=== PATIENT | female | born 1955 | race Caucasian/White ===

== ENCOUNTER 2023-12-11 08:28 | Emergency (ER) | payer MEDICARE, OTHER, SELFPAY ==
[2023-12-11 08:33] VITALS: BP 137/77
--- NOTE | 2023-12-11 09:29 | ED.GENMED ---
History of Present Illness
General
Chief Complaint: Chest Problem
Source: patient
Exam Limitations: none
Time Seen by Provider: 12/11/23 09:20
Nursing documentation reviewed up to this point in time: agreed with
Travel History
Have you had any contact with someone who has COVID-19?: No
Do you have any symptoms of coronavirus? Fever > 100 degrees, chills, cough, shortness of breath, sore throat, loss of taste or smell, muscle aches, or headache?: Yes
Symptoms:: cough
History of Present Illness
History of Present Illness:
68 yr old female presents to the ER for evaluation. Patient reports for the past several days she has had cold symptoms, nasal congestion. She reports only mild cough. She denies any fevers.
She also complains of Midsternal chest pain that started yesterday. She reports she notices a walking to the mailbox and reports it has been off and on since. She denies any radiation to neck back or arm. Denies any associated shortness of
breath. She has no cardiac history.
She reports chest feels sore now.
No prior history of DVT PE. She has no clotting disorder , denies any lower extremity swelling.
Past History
Past History
ED Past Medical History: HTN, Hypercholesterolemia and Other (COVID in January 2021; chronic insomnia, osteoarthritis, anemia)
ED Past Surgical History: Orthopedic (Chronic problems with her feet.)
Social History
Tobacco: Non-smoker
Alcohol: None
Drug: None
Personal:
Living: with family
Employment: Disabled
Family History
Family History: Other (Noncontributory)
Review of Systems
Review of Systems
Allergies reviewed?: Yes
All Other Systems: ROS reviewed and negative except as documented in HPI and ROS
Constitutional: Reports no symptoms; Denies fever, fatigue or chills
Respiratory: Denies trouble breathing
Cardiac: Reports chest pain; Denies diaphoresis, palpitations or syncope
ABD/GI: Reports no symptoms
: Reports no symptoms
Musculoskeletal: Reports no symptoms
Skin: Reports no symptoms
Neurological: Reports no symptoms
Hematologic/Lymphatic: Reports no symptoms
Psychiatric: Reports no symptoms
Phy Exam
General Physical Exam
General Presentation: no apparent distress
General age: appears stated age
General Skin: warm and dry
General Habitus: normal
General Mental: alert
General Hydration: appears well hydrated
Cardiovascular Exam
Cardiovascular Exam: regular rate/rhythm, no murmur and normal peripheral pulses
Pulmonary Exam
Pulmonary Exam: lungs clear and no respiratory distress
Course
Orders/Labs/Results
Orders:
Orders
12/11/23 08:36
EKG [Electrocardiogram (*1)] Urgent
Reason for Study: Chest Pain
12/11/23 08:37
EKG- Treatment ONCE
12/11/23 09:49
Chest [CR Chest - 2 Views ] Urgent
Comment:
Reason For Exam: cp
12/11/23 10:01
COVID-19 Antigen Urgent
Source: Nasal Swab
Complete Blood Count/With Diff Urgent
Comprehensive Metabolic Panel Urgent
Troponin I Urgent
Influenza A+B Rapid Molecular Urgent
KAMILLA Source: Nasal Swab
Specimen Description:
12/11/23 10:57
Vital Signs- Treatment ONCE
Frequency: Once
Abnormal Lab Results
12/11/23
10:01
RBC 6.41 H 10^6/uL
(4.20-5.40)
MCV 64.7 L fL
(81.0-99.0)
MCH 20.3 L pg
(27.0-31.0)
MCHC 31.3 L g/dL
(33.0-37.0)
RDW 17.6 H %
(11.5-14.5)
MPV 10.8 H fL
(7.4-10.4)
Absolute Neuts (auto) 6.7 H 10^3/uL
(1.4-6.5)
Chloride 110 H mmol/L
(98-107)
BUN 19 H mg/dl
(7-17)
Alkaline Phosphatase 135 H U/L
(38-126)
12/11/23 10:01
12/11/23 10:01
Vital Signs
Initial and Last Documented VS:
Initial Vital Signs
Temp Pulse Resp BP Pulse Ox
98.2 F 101 16 137/77 96
12/11/23 08:33 12/11/23 08:33 12/11/23 08:33 12/11/23 08:33 12/11/23 08:33
Last Documented Vital Signs
Temp Pulse Resp BP Pulse Ox
98.2 F 76 16 122/82 97
12/11/23 08:33 12/11/23 11:11 12/11/23 11:11 12/11/23 11:11 12/11/23 11:11
MDM/Problems Addressed
Differential Diagnosis Includes:
Not limited to viral syndrome, COVID, flu, musculoskeletal chest pain, less likely CAD, less likely PE
MDM/Problems Addressed:
Patient is a 68 old female who presents to the ER with viral symptoms, nasal congestion/cough. In addition she does have mild anterior chest discomfort. Discomfort started yesterday. She is no cardiac history. She is not toxic. Chest is sore on
exam. She has no acute findings on EKG. Cardiac troponin negative. No acute findings on chest x-ray. Symptoms are likely muscular patient has no complaints of shortness of breath lungs are clear she has nontachypneic nonhypoxic in no acute
distress. Likely viral syndrome with muscular skeletal chest pain
*Radiology
Radiology exam reviewed: radiology read reviewed
*Pulse Oximetry
Patient hypoxic: no
*EKG
Interpreted by ED Provider?: Yes
Heart Rate: 91
Rate: normal
Rhythm: sinus
Ischemia: non-specific ST changes
*Critical Care Note
Total Time (30-74mins, 75-104mins- exclusive of procedures): Not Applicable
ED Attending Note
-
Portions of this chart may have been created with voice recognition software.� Occasional wrong word or��sound alike� substitutions may have occurred due to the inherent limitations of voice recognition software.
Discharge Plan
Departure
Patient Disposition: Home (Routine Discharge)
Date of Disposition: 12/11/23
Time of Disposition: 10:58
Patient with high blood pressure during this ER visit?: Yes
Condition: Fair
Covid-19: Negative COVID-19
Discharge Problem:
Acute viral syndrome, Chest pain
Instructions: Viral Syndrome (DC), Chest Pain PCP Follow Up, BLOOD PRESSURE
Prescriptions:
No Action
clonazepam 1 mg Tablet
1.5 mg PO HS
Patient Comments:
09/08/2023: last filled 09/07/23, 60 tabs for 30 days from [place]
atorvastatin 10 mg tablet
10 mg PO DAILY@1930
clonazepam 1 mg tablet
0.5 mg PO DAILY@0100 PRN (Reason: sleep)
Patient Comments:
09/08/2023: last filled 09/07/23, 60 tabs for 30 days from [place]
prednisolone acetate 1 % drops,suspension
1 drp LEFT EYE QID
hydrochlorothiazide 25 mg tablet
25 mg PO DAILY
carbidopa-levodopa 25-100 mg tablet
2 tab PO DAILY@2000
carbidopa-levodopa 25-100 mg tablet
1 tab PO DAILY@0400
pregabalin 75 mg capsule
75 mg PO HS
Patient Comments:
09/08/2023: last filled 08/13/23, 90 tabs for 90 days from [facility]
Referrals:
Nakia Rodriguez CRNP [Family Provider] -
Activity Restrictions/Additional Instructions:
As discussed you are negative for COVID and flu and likely have a virus based on your symptoms. It is important to stay well-hydrated.
Follow-up with your family doctor the next several days for reevaluation of your symptoms.
Your cardiac blood work was normal and there are no acute changes on your EKG. this chest pain may be related to cough.
Return if any worsening of symptoms if worsening fevers difficulty breathing worsening chest pain or any further concerns.
Interventions
Interventions:
*Risk Screen - Suicide Last Done: 12/11/23 08:33
*General Assessment Last Done: 12/11/23 08:33
*Neglect/Abuse Screening Last Done: 12/11/23 08:33
*Nursing Disposition Last Done: 12/11/23 11:40
ED- Cardiac Assessment Last Done: 12/11/23 11:30
ED- Pulmonary Assessment Last Done: 12/11/23 11:30
Discharge Date and Time
Discharge Date/Time: 12/11/23 11:48
[2023-12-11 10:18] LABS: % Basophils 0.6 % (0-2); % Eosinophils 2.9 % (0-6); % Immature Granulocytes 0.2 % (0-0.5); % Lymphocytes 29.5 % (20.5-51.1); % Monocytes 5.2 % (1.7-9.3); % Neutrophils 61.6 % (42.2-75.2); Absolute Basophils 0.1 10^3/uL (0-0.2); Absolute Eosinophils 0.3 10^3/uL (0-0.7); Absolute Lymphocytes 3.2 10^3/uL (1.2-3.4); Absolute Monocytes 0.6 10^3/uL (0.1-0.6); Absolute Neutrophils 6.7 10^3/uL (1.4-6.5); Hematocrit 41.5 % (37.0-47.0); Mean Corp Hgb Conc. 31.3 g/dL (33.0-37.0); Mean Corpuscular Hgb 20.3 pg (27.0-31.0); Mean Corpuscular Volume 64.7 fL (81.0-99.0); Mean Platelet Volume 10.8 fL (7.4-10.4); Nucleated Red Blood Cells % 0 %; Platelet Count 236 10^3/uL (130-400); Red Blood Cell Count 6.41 10^6/uL (4.20-5.40); Red Cell Dist. Width 17.6 % (11.5-14.5); White Blood Cell Count 10.8 10^3/uL (4.8-10.8)
[2023-12-11 10:25] LABS: ALT (SGPT) < 10 U/L (0-35); AST (SGOT) 23 U/L (14-36); Albumin 3.8 g/dl (3.5-5.0); Alkaline Phosphatase 135 U/L (38-126); Blood Urea Nitrogen 19 mg/dl (7-17); Calcium 8.7 mg/dl (8.4-10.2); Carbon Dioxide 26 mmol/L (22-30); Chloride 110 mmol/L (98-107); Glucose 89 mg/dl (70-99); Sodium 142 mmol/L (135-145); Total Bilirubin 0.5 mg/dl (0.2-1.3); Total Protein 6.9 g/dl (6.3-8.2); eGFR > 60.00
[2023-12-11 10:27] LABS: COVID-19 Antigen Negative (Negative)
[2023-12-11 10:36] LABS: Troponin I < 0.012 ng/ml
[2023-12-11 11:11] VITALS: BP 122/82
== END 2023-12-11 11:48 | disposition home or self-care (01) ==
LOC: EMR 08:28
PROVIDERS: EMERGENCY PHYSICIAN Emergency Medicine; FAMILY PHYSICIAN Family Medicine Adult Medicine
DX: B34.9 Viral infection, unspecified (principal); R07.89 Other chest pain; Z11.52 Encounter for screening for COVID-19; I10 Essential (primary) hypertension; E78.00 Pure hypercholesterolemia, unspecified; Z86.16 Personal history of COVID-19; M19.90 Unspecified osteoarthritis, unspecified site; Z88.6 Allergy status to analgesic agent; Z88.1 Allergy status to other antibiotic agents; Z88.8 Allergy status to other drugs, medicaments and biological substances
CPT/HCPCS: 99283; 71046; 80053; 84484; 85025; 87502; 87811; 93005

== ENCOUNTER 2024-05-28 08:31 | Emergency (ER) | payer MEDICARE, SELFPAY ==
[2024-05-28 08:44] VITALS: BP 112/78
[2024-05-28 09:00] VITALS: BP 127/91
--- NOTE | 2024-05-28 09:20 | ED.GENMED ---
History of Present Illness
<Nahum Green PA-C - Last Filed: 05/28/24 13:40>
General
Chief Complaint: Dizziness
Source: patient
Time Seen by Provider: 05/28/24 09:07
History of Present Illness
History of Present Illness:
68-year-old female with past medical history of hypertension and hyperlipidemia presenting to the emergency department for evaluation after she awoke this morning and when getting out of bed got lightheaded and felt as if she could not walk
straight. This caused her to feel nauseated as well as developed a slight headache and have chills. Patient went and sat on her couch. Her for COVID and gave her some eyedrops but symptoms persisted so they contacted EMS. Patient states that
since EMS brought her to the ER her symptoms are now fully resolved. Patient denies any fevers or infectious symptoms, vomiting, bowel changes or urinary symptoms. She did not take anything for her symptoms prior to arrival. Social history and
family history are noncontributory.
Past History
<Nahum Green PA-C - Last Filed: 05/28/24 13:40>
Past History
ED Past Medical History: HTN, Hypercholesterolemia and Other (COVID in January 2021; chronic insomnia, osteoarthritis, anemia)
ED Past Surgical History: Gynecological and Orthopedic (Chronic problems with her feet.)
Social History
Tobacco: Non-smoker
Alcohol: None
Drug: None
Personal:
Living: with family
Employment: Disabled
Family History
Family History: Other (Noncontributory)
Review of Systems
<Nahum Green PA-C - Last Filed: 05/28/24 13:40>
Review of Systems
All Other Systems: ROS reviewed and negative except as documented in HPI and ROS
Phy Exam
<Nahum Green PA-C - Last Filed: 05/28/24 13:40>
Physical Exam
Physical Exam:
GENERAL: Alert , in no apparent distress, smiling and pleasant, drinking water
EYE: clear conjunctiva b/l
HEAD: NCAT
ENT: o/p clr, mmm.
CARDIAC: Regular rate and rhythm .
LUNGS: Clear breath sounds bilaterally, no acute respiratory distress, no wheezes/rales/rhonchi
ABDOMEN: Soft, without focal tenderness, no r/g, no cvat
NEUROLOGICAL: Alert and oriented
SKIN: Warm and dry, skin intact.
MUSCULOSKELETAL: No edema, well perfused.
PSYCH: Normal and appropriate interaction.
Scores
<Nahum Green PA-C - Last Filed: 05/28/24 13:40>
Heart Failure Risk
Heart Failure Risk Score: Not Applicable
Heart Score for Chest Pain Patients
STEMI patient?: Not applicable
Withdrawal Assessment of Alcohol
Withdrawal Assessment Completed?: Not applicable
Course
<Nahum Green PA-C - Last Filed: 05/28/24 13:40>
Orders/Labs/Results
Orders:
Orders
05/28/24 09:19
Orthostatic VS- Treatment ONCE
05/28/24 09:35
Electrocardiogram (*1) Urgent
Reason for Study: Syncope
EKG- Treatment ONCE
05/28/24 09:43
Basic Metabolic Panel Urgent
Complete Blood Count/With Diff Urgent
05/28/24 10:03
Meclizine [Antivert] 25 mg PO NOW STA
Abnormal Lab Results
05/28/24
09:43
WBC 11.0 H 10^3/uL
(4.8-10.8)
RBC 6.05 H 10^6/uL
(4.20-5.40)
MCV 64.1 L fL
(81.0-99.0)
MCH 20.3 L pg
(27.0-31.0)
MCHC 31.7 L g/dL
(33.0-37.0)
RDW 17.9 H %
(11.5-14.5)
MPV 10.8 H fL
(7.4-10.4)
Abs Immat Gran (auto) 0.1 H 10^3/uL
(0-0.05)
Absolute Neuts (auto) 7.9 H 10^3/uL
(1.4-6.5)
Chloride 108 H mmol/L
(98-107)
BUN 20 H mg/dl
(7-17)
05/28/24 09:43
05/28/24 09:43
Vital Signs
Initial and Last Documented VS:
Initial Vital Signs
Temp Pulse Resp BP Pulse Ox
97.6 F 83 16 112/78 97
05/28/24 08:44 05/28/24 08:44 05/28/24 08:44 05/28/24 08:44 05/28/24 08:44
Last Documented Vital Signs
Temp Pulse Resp BP Pulse Ox
98.4 F 80 18 127/91 99
05/28/24 11:43 05/28/24 11:43 05/28/24 11:43 05/28/24 09:00 05/28/24 11:43
<Eb Crisostomo, DO - Last Filed: 05/28/24 10:04>
Orders/Labs/Results
Orders:
Orders
05/28/24 09:19
Orthostatic VS- Treatment ONCE
05/28/24 09:35
Electrocardiogram (*1) Urgent
Reason for Study: Syncope
EKG- Treatment ONCE
05/28/24 09:43
Basic Metabolic Panel Urgent
Complete Blood Count/With Diff Urgent
05/28/24 10:03
Meclizine [Antivert] 25 mg PO NOW STA
Abnormal Lab Results
05/28/24
09:43
WBC 11.0 H 10^3/uL
(4.8-10.8)
RBC 6.05 H 10^6/uL
(4.20-5.40)
MCV 64.1 L fL
(81.0-99.0)
MCH 20.3 L pg
(27.0-31.0)
MCHC 31.7 L g/dL
(33.0-37.0)
RDW 17.9 H %
(11.5-14.5)
MPV 10.8 H fL
(7.4-10.4)
Abs Immat Gran (auto) 0.1 H 10^3/uL
(0-0.05)
Absolute Neuts (auto) 7.9 H 10^3/uL
(1.4-6.5)
Chloride 108 H mmol/L
(98-107)
BUN 20 H mg/dl
(7-17)
05/28/24 09:43
05/28/24 09:43
Vital Signs
Initial and Last Documented VS:
Initial Vital Signs
Temp Pulse Resp BP Pulse Ox
97.6 F 83 16 112/78 97
05/28/24 08:44 05/28/24 08:44 05/28/24 08:44 05/28/24 08:44 05/28/24 08:44
Last Documented Vital Signs
Temp Pulse Resp BP Pulse Ox
98.4 F 80 18 127/91 99
05/28/24 11:43 05/28/24 11:43 05/28/24 11:43 05/28/24 09:00 05/28/24 11:43
<Nahum Green PA-C - Last Filed: 05/28/24 13:40>
MDM/Problems Addressed
Differential Diagnosis Includes:
orthostasis, near syncope, anemia, electrolyte disturbance
MDM/Problems Addressed:
68-year-old female presenting to the emergency department for evaluation after she started to feel lightheaded/dizzy earlier today. Symptoms started just after she had stood up from bed. Symptoms seem to be most with orthostasis. She is otherwise
very well-appearing and hemodynamically stable. Overall I do not have any suspicion for any emergent pathologies but given her age and presenting symptoms will check labs, orthostatic vital signs and EKG. Anticipate discharge home.
<Nahum Green PA-C - Last Filed: 05/28/24 13:40>
*Pulse Oximetry
Patient hypoxic: no
*EKG
Interpreted by ED Provider?: Yes
Comparison EKG: no changes
Heart Rate: 76
Rate: normal
Rhythm: sinus
[place]: normal axis
Ischemia: no ischemia
*Critical Care Note
Total Time (30-74mins, 75-104mins- exclusive of procedures): Not Applicable
Data Reviewed
Review of Other/Old Records Reveals: Labs and Records
Source: patient
<Nahum Green PA-C - Last Filed: 05/28/24 13:40>
Comment
Comment:
Patients labs unremarkable. Appears to have a chronic leukocytosis based off chart/lab review
Patient Management
Escalation/DeEscalation of care consider admission/obs:
Patient feeling better after meclizine and IVF. Stable for discharge home. Aware of return precautions to the ED.
ED Attending Note
<Nahum Green PA-C - Last Filed: 05/28/24 13:40>
-
Portions of this chart may have been created with voice recognition software.� Occasional wrong word or��sound alike� substitutions may have occurred due to the inherent limitations of voice recognition software.
<Eb Crisostomo DO - Last Filed: 05/28/24 10:04>
ED Attending Note
Patient seen and examined by attending physician: Yes
I performed the substantive portion of visit, reviewed & personally made and approve the management plan that is documented in note by myself or EVERARDO.: Yes
ED Attending Note:
I have seen and evaluated the patient with a [id number] encounter. I have spoken to the advance practicer provider and involved in the medical history, the physical exam, medical decision making.
Evaluation and management service: agree unless noted differently below.
Results interpretation: agree unless noted differently below.
Focused HPI: 68-year-old female presenting with dizziness. This occurred when she stood up quickly. She felt lightheaded. This was associated with a headache. All symptoms appear to be resolving on arrival to the emergency
Physical exam: Sitting bed comfortably. Well-hydrated. Normal finger-nose. Heart regular rate and rhythm. Mild dizziness worsened with Santana-Hallpike to the left.
Medical Decision Making: Will give fluids and meclizine and continue to reassess. Given no focal neurodeficits, doubt intracranial hemorrhage, stroke or mass.
Discharge Plan
Departure
Patient Disposition: Home (Routine Discharge)
Date of Disposition: 05/28/24
Time of Disposition: 11:32
Patient with high blood pressure during this ER visit?: No
Discharge Problem:
Light-headedness
Instructions: Dizziness, Nonvertigo, (DC)
Prescriptions:
New
meclizine 25 mg tablet
25 mg PO BID PRN (Reason: dizziness) Qty: 5 0RF
No Action
clonazepam 1 mg Tablet
1.5 mg PO HS
Patient Comments:
09/08/2023: last filled 09/07/23, 60 tabs for 30 days from [facility]
atorvastatin 10 mg tablet
10 mg PO DAILY@1930
clonazepam 1 mg tablet
0.5 mg PO DAILY@0100 PRN (Reason: sleep)
Patient Comments:
09/08/2023: last filled 09/07/23, 60 tabs for 30 days from [place]
prednisolone acetate 1 % drops,suspension
1 drp LEFT EYE QID
hydrochlorothiazide 25 mg tablet
25 mg PO DAILY
carbidopa-levodopa 25-100 mg tablet
2 tab PO DAILY@2000
carbidopa-levodopa 25-100 mg tablet
1 tab PO DAILY@0400
pregabalin 75 mg capsule
75 mg PO HS
Patient Comments:
09/08/2023: last filled 08/13/23, 90 tabs for 90 days from [facility]
Referrals:
Attila Cardoso MD [Family Provider] -
Interventions
Interventions:
*Risk Screen - Suicide Last Done: 05/28/24 11:43
*General Assessment Last Done: 05/28/24 08:47
*Neglect/Abuse Screening Last Done: 05/28/24 11:43
ED- Fall Risk Assessment Last Done: 05/28/24 11:43
*ED COVID-19 Vaccine History Last Done: 05/28/24 08:47
*Nursing Disposition Last Done: 05/28/24 11:43
ED- Neurological Assessment Last Done: 05/28/24 09:40
ED- Cardiac Assessment Last Done: 05/28/24 11:43
ED Swallowing Screen Last Done: 05/28/24 09:40
Discharge Date and Time
Discharge Date/Time: 05/28/24 11:45
Print Language: CYMRAES
[2024-05-28 09:36] VITALS: BMI 34.0
[2024-05-28 10:00] LABS: % Basophils 0.6 % (0-2); % Eosinophils 1.3 % (0-6); % Immature Granulocytes 0.5 % (0-0.5); % Lymphocytes 20.5 % (20.5-51.1); % Monocytes 5.5 % (1.7-9.3); % Neutrophils 71.6 % (42.2-75.2); Absolute Basophils 0.1 10^3/uL (0-0.2); Absolute Eosinophils 0.1 10^3/uL (0-0.7); Absolute Immature Granulocytes 0.1 10^3/uL (0-0.05); Absolute Lymphocytes 2.3 10^3/uL (1.2-3.4); Absolute Monocytes 0.6 10^3/uL (0.1-0.6); Absolute Neutrophils 7.9 10^3/uL (1.4-6.5); Hematocrit 38.8 % (37.0-47.0); Hemoglobin 12.3 g/dL (12.0-16.0); Mean Corp Hgb Conc. 31.7 g/dL (33.0-37.0); Mean Corpuscular Hgb 20.3 pg (27.0-31.0); Mean Corpuscular Volume 64.1 fL (81.0-99.0); Mean Platelet Volume 10.8 fL (7.4-10.4); Nucleated Red Blood Cells % 0 %; Platelet Count 242 10^3/uL (130-400); Red Blood Cell Count 6.05 10^6/uL (4.20-5.40); Red Cell Dist. Width 17.9 % (11.5-14.5)
[2024-05-28 10:11] LABS: Blood Urea Nitrogen 20 mg/dl (7-17); Calcium 9.1 mg/dl (8.4-10.2); Carbon Dioxide 28 mmol/L (22-30); Chloride 108 mmol/L (98-107); Estimated Creatinine Clearance 51 ml/min; Glucose 94 mg/dl (70-99); Potassium 4.5 mmol/L (3.5-5.1); Sodium 142 mmol/L (135-145); eGFR > 60.00
[2024-05-28] MEDS: ANTIVERT 25 MG PO (10:30)
[2024-05-28 11:14] VITALS: BP 141/128; BP 142/90; BP 147/81; PULSE 78; PULSE 84; PULSE 86
== END 2024-05-28 11:45 | disposition home or self-care (01) ==
LOC: EMR 08:31
PROVIDERS: Physician Assistant Medical; EMERGENCY PHYSICIAN Student in an Organized Health Care Education/Training Program; FAMILY PHYSICIAN Internal Medicine
DX: R42 Dizziness and giddiness (principal); I10 Essential (primary) hypertension; E78.00 Pure hypercholesterolemia, unspecified
CPT/HCPCS: 99284; 80048; 85025; 93005

== ENCOUNTER 2024-05-30 11:15 | Emergency (ER) | payer MEDICARE, SELFPAY ==
[2024-05-30 11:16] VITALS: BP 124/78
--- NOTE | 2024-05-30 11:36 | ED.GENMED ---
History of Present Illness
General
Chief Complaint: Dizziness
Source: patient
Exam Limitations: none
Time Seen by Provider: 05/30/24 11:27
History of Present Illness
History of Present Illness:
See MDM
Past History
Past History
ED Past Medical History: HTN, Hypercholesterolemia and Other (COVID in January 2021; chronic insomnia, osteoarthritis, anemia)
ED Past Surgical History: Gynecological and Orthopedic (Chronic problems with her feet.)
Social History
Tobacco: Non-smoker
Alcohol: None
Drug: None
Personal:
Living: with family
Employment: Disabled
Family History
Family History: Other (Noncontributory)
Phy Exam
Physical Exam
Physical Exam:
See MDM
Course
Orders/Labs/Results
Orders:
Orders
05/30/24 11:36
Dexamethasone Pf [Decadron] 10 mg PO NOW STA
Vital Signs
Initial and Last Documented VS:
Initial Vital Signs
Temp Pulse Resp BP Pulse Ox
98.0 F 82 16 124/78 98
05/30/24 11:16 05/30/24 11:16 05/30/24 11:16 05/30/24 11:16 05/30/24 11:16
Last Documented Vital Signs
Temp Pulse Resp BP Pulse Ox
98.0 F 82 16 124/78 98
05/30/24 11:16 05/30/24 11:16 05/30/24 11:16 05/30/24 11:16 05/30/24 11:16
MDM/Problems Addressed
Differential Diagnosis Includes:
HPI and MDM Narrative:
68-year-old female presenting with right ear pain. This occurred yesterday. She was recently evaluated in the emergency department for dizziness which was believed to be related to BPPV. Patient states her dizziness has improved drastically about
she is now developing ear pain.
On exam, patient is extremely well-appearing nontoxic. Patient is requesting me to evaluate her ears. Both TMs are bulging but pale. Right TM with concern for very mild otitis externa.
Will give dose of Decadron to help with bulging TMs. Will start on Ciprodex as well.
Physical exam
General: Well appearing and non-toxic
HEENT: protecting airway. Bilateral TMs pale but bulging. Right mild otitis externa
Neck: appears supple
CV: No evidence of cyanosis
Resp: No accessory muscle use
Abd: Non-distended
Extremities: No deformities
Neuro: alert
Psych: Normal affect
Skin: Intact
Problems Addressed including Acute and Chronic Conditions affecting care:
1. Otitis externa
Acuity: acute
Prognosis: stable
Details: Will start Ciprodex. Will give dose of Decadron to help with TM bulging
Differential Diagnosis (but not limited to): Vertigo, otitis externa, congestion
Drug therapy (if applicable): OTC meds, please see d/c instruction regarding Rx drugs
Amount and/or Complexity of Data Reviewed
Clinical info obtained from: Patient
External data reviewed: N/A
Labs I independently reviewed (but not limited to): N/A
Radiology: N/A
Pulse Ox: not hypoxic
EKG independently reviewed: N/A
Rope Rider: N/A
Critical Care: N/A
Risk of Complication:
Social Determinants of health: Good social support
Discussed with other providers: N/A
Escalation of Care includes Admit/Obs: After being observed in the Emergency Department, pt stable for discharge.
Occasional wrong word or 'sound a like' substitutions may have occurred due to the inherent limitations of voice recognition software. Read the chart carefully and recognize, using context, where substitutions have occurred.
*Critical Care Note
Total Time (30-74mins, 75-104mins- exclusive of procedures): Not Applicable
ED Attending Note
-
Portions of this chart may have been created with voice recognition software.� Occasional wrong word or��sound alike� substitutions may have occurred due to the inherent limitations of voice recognition software.
Discharge Plan
Departure
Patient Disposition: Home (Routine Discharge)
Date of Disposition: 05/30/24
Time of Disposition: 11:39
Patient with high blood pressure during this ER visit?: No
Discharge Problem:
Otitis externa
Instructions: Outer Ear Infection ED
Prescriptions:
New
ciprofloxacin-dexamethasone 0.3-0.1 % drops,suspension
4 drp otic (ear) BID 7 Days Qty: 7.5 0RF
No Action
clonazepam 1 mg Tablet
1.5 mg PO HS
Patient Comments:
09/08/2023: last filled 09/07/23, 60 tabs for 30 days from [place]
atorvastatin 10 mg tablet
10 mg PO DAILY@1930
clonazepam 1 mg tablet
0.5 mg PO DAILY@0100 PRN (Reason: sleep)
Patient Comments:
09/08/2023: last filled 09/07/23, 60 tabs for 30 days from [place]
prednisolone acetate 1 % drops,suspension
1 drp LEFT EYE QID
hydrochlorothiazide 25 mg tablet
25 mg PO DAILY
carbidopa-levodopa 25-100 mg tablet
2 tab PO DAILY@2000
carbidopa-levodopa 25-100 mg tablet
1 tab PO DAILY@0400
pregabalin 75 mg capsule
75 mg PO HS
Patient Comments:
09/08/2023: last filled 08/13/23, 90 tabs for 90 days from [place]
meclizine 25 mg tablet
25 mg PO BID PRN (Reason: dizziness) Qty: 5 0RF
Activity Restrictions/Additional Instructions:
Please return for any worsening symptoms.
You may return at any time if you have further concerns.
Please follow up with your doctor at the first available appointment, preferably this week.
Please take the eardrops as prescribed.
Thank you for choosing [facility].
Discharge Date and Time
Print Language: ROMANIAN
[2024-05-30] MEDS: DECADRON 10 MG PO (11:44)
== END 2024-05-30 11:52 | disposition home or self-care (01) ==
LOC: EMR 11:15
PROVIDERS: EMERGENCY PHYSICIAN Student in an Organized Health Care Education/Training Program
DX: H60.91 Unspecified otitis externa, right ear (principal); I10 Essential (primary) hypertension; E78.00 Pure hypercholesterolemia, unspecified; F51.04 Psychophysiologic insomnia; M19.90 Unspecified osteoarthritis, unspecified site; D64.9 Anemia, unspecified
CPT/HCPCS: 99282

== ENCOUNTER → 2024-09-14 08:42 | Outpatient (REF) | payer MEDICARE, SELFPAY ==
[2024-09-14 10:23] LABS: % Basophils 0.6 % (0-2); % Eosinophils 0.8 % (0-6); % Immature Granulocytes 0.4 % (0-0.5); % Lymphocytes 20.7 % (20.5-51.1); % Monocytes 4.7 % (1.7-9.3); % Neutrophils 72.8 % (42.2-75.2); Absolute Basophils 0.1 10^3/uL (0-0.2); Absolute Eosinophils 0.1 10^3/uL (0-0.7); Absolute Immature Granulocytes 0.1 10^3/uL (0-0.05); Absolute Lymphocytes 2.7 10^3/uL (1.2-3.4); Absolute Monocytes 0.6 10^3/uL (0.1-0.6); Absolute Neutrophils 9.4 10^3/uL (1.4-6.5); Hematocrit 42.1 % (37.0-47.0); Mean Corp Hgb Conc. 30.9 g/dL (33.0-37.0); Mean Corpuscular Hgb 20.7 pg (27.0-31.0); Mean Platelet Volume 11.7 fL (7.4-10.4); Nucleated Red Blood Cells % 0 %; Platelet Count 244 10^3/uL (130-400); Red Blood Cell Count 6.28 10^6/uL (4.20-5.40); Red Cell Dist. Width 17.7 % (11.5-14.5); White Blood Cell Count 12.9 10^3/uL (4.8-10.8)
[2024-09-14 10:49] LABS: ALT (SGPT) < 10 U/L (0-35); AST (SGOT) 20 U/L (14-36); Albumin 4.1 g/dl (3.5-5.0); Alkaline Phosphatase 123 U/L (38-126); Blood Urea Nitrogen 24 mg/dl (7-17); Carbon Dioxide 30 mmol/L (22-30); Chloride 104 mmol/L (98-107); Glucose 87 mg/dl (70-99); HDL Cholesterol 37 mg/dl; LDL Cholesterol, Calculated 86 mg/dl; Sodium 145 mmol/L (135-145); Total Bilirubin 0.6 mg/dl (0.2-1.3); Total Cholesterol 168 mg/dl (50-199); Total Protein 7.1 g/dl (6.3-8.2); Triglyceride 227 mg/dl (10-149); Very Low Density Lipoprotein 45 mg/dl (0-30); eGFR > 60.00
[2024-09-14 11:19] LABS: TSH Reflex To Free T4 1.35 uIU/ml (0.47-4.68)
[2024-09-15 18:57] LABS: Hepatitis C Antibody Negative (Negative)
== END ==
LOC: WDC 08:42
PROVIDERS: ATTENDING PHYSICIAN Internal Medicine
DX: Z12.31 Encounter for screening mammogram for malignant neoplasm of breast (principal); Z00.00 Encounter for general adult medical examination without abnormal findings
CPT/HCPCS: 36415; 77063; 77067; 80053; 80061; 84443; 85025; 86803

== ENCOUNTER 2024-12-17 14:16 | Emergency (ER) | payer MEDICARE, SELFPAY ==
[2024-12-17 14:35] VITALS: BP 160/95
[2024-12-17 15:15] LABS: COVID-19 Antigen Negative (Negative)
--- NOTE | 2024-12-17 16:23 | ED.GENMED ---
History of Present Illness
General
Chief Complaint: Cold/Flu/URI Symptoms
Source: patient
Exam Limitations: none
Time Seen by Provider: 12/17/24 16:22
Nursing documentation reviewed up to this point in time: agreed with
History of Present Illness
History of Present Illness:
69 y/o F h/o HTN, HLD, essential tremor
yesterday started feeling congested, then today slight cough, diarrhea x 1
daughter has same thing
pt wanted flu and covid tests
she took some mucinex and feels much better and wants to go home
no cp, sob, headche, vomiting, fatigue, cp, sob, confusion, weakness.
Past History
Past History
ED Past Medical History: HTN, Hypercholesterolemia and Other (COVID in January 2021; chronic insomnia, osteoarthritis, anemia)
ED Past Surgical History: Gynecological and Orthopedic (Chronic problems with her feet.)
Social History
Tobacco: Non-smoker
Alcohol: None
Drug: None
Personal:
Living: with family
Employment: Disabled
Family History
Family History: Other (Noncontributory)
Review of Systems
Review of Systems
Allergies reviewed?: Yes
All Other Systems: Not applicable
Phy Exam
Physical Exam
Physical Exam:
GENERAL: Alert , in no apparent distress
EYE: pupils equal and reactive
NECK: Supple
ENT: b/l TM s clear, pharynx erythematous but no tonsillar hypertrophy or exudates
CARDIAC: Regular rate and rhythm, no edema
LUNGS: Clear breath sounds bilaterally, no acute respiratory distress, no wheezes/rales/rhonchi, occ cough
ABDOMEN: Soft, without focal tenderness, no r/g, no cvat, normal bowel sounds
NEUROLOGICAL: Alert and oriented, no focal neuro deficits
SKIN: Warm and dry, skin intact.
MUSCULOSKELETAL: No edema, well perfused.
PSYCH: Normal and appropriate interaction.
Course
Orders/Labs/Results
Orders:
Orders
12/17/24 14:48
COVID-19 Antigen Urgent
Source: Nasal Swab
Influenza A+B Rapid Molecular Urgent
[facility] Source: Nasal Swab
Specimen Description:
Vital Signs
Pulse: 99
Blood pressure: 161/93
Initial and Last Documented VS:
Initial Vital Signs
Temp Pulse Resp BP Pulse Ox
36.8 C 100 16 160/95 98
12/17/24 14:35 12/17/24 14:35 12/17/24 14:35 12/17/24 14:35 12/17/24 14:35
Last Documented Vital Signs
Temp Pulse Resp BP Pulse Ox
36.8 C 99 16 161/93 98
12/17/24 14:35 12/17/24 16:29 12/17/24 14:35 12/17/24 16:29 12/17/24 14:35
MDM/Problems Addressed
Differential Diagnosis Includes:
URI, viral syndrome
MDM/Problems Addressed:
69 y/o F
here with 1 day of URI sxs, nasal congestion, slight cough, no fever, mild diarrhea
well appearing
wanted flu and covid tests
daughter had same symptoms and she also tested neg for flu and covid
pt feels well now
exam benign, mild nasal turbinate injection
otherwise unremarkable
mild bp leevation, pt waiting a long time and was frustrated
likely siutational
d/c home
*Critical Care Note
Total Time (30-74mins, 75-104mins- exclusive of procedures): Not Applicable
ED Attending Note
-
Portions of this chart may have been created with voice recognition software.� Occasional wrong word or��sound alike� substitutions may have occurred due to the inherent limitations of voice recognition software.
Discharge Plan
Departure
Patient Disposition: Home (Routine Discharge)
Date of Disposition: 12/17/24
Time of Disposition: 16:32
Patient with high blood pressure during this ER visit?: Yes
Condition: Fair
Discharge Problem:
Upper respiratory infection, Acute viral syndrome
Instructions: Viral Upper Respiratory Infection, Adult (DC), BLOOD PRESSURE
Prescriptions:
No Action
clonazepam 1 mg Tablet
1.5 mg PO HS
Patient Comments:
09/08/2023: last filled 09/07/23, 60 tabs for 30 days from [place]
atorvastatin 10 mg tablet
10 mg PO DAILY@1930
clonazepam 1 mg tablet
0.5 mg PO DAILY@0100 PRN (Reason: sleep)
Patient Comments:
09/08/2023: last filled 09/07/23, 60 tabs for 30 days from [place]
prednisolone acetate 1 % drops,suspension
1 drp LEFT EYE QID
hydrochlorothiazide 25 mg tablet
25 mg PO DAILY
carbidopa-levodopa 25-100 mg tablet
2 tab PO DAILY@2000
carbidopa-levodopa 25-100 mg tablet
1 tab PO DAILY@0400
pregabalin 75 mg capsule
75 mg PO HS
Patient Comments:
09/08/2023: last filled 08/13/23, 90 tabs for 90 days from [place]
meclizine 25 mg tablet
25 mg PO BID PRN (Reason: dizziness) Qty: 5 0RF
ciprofloxacin-dexamethasone 0.3-0.1 % drops,suspension
4 drp otic (ear) BID 7 Days Qty: 7.5 0RF
Referrals:
UNKNOWN - PT DOES,NOT KNOW [Family Provider] -
Activity Restrictions/Additional Instructions:
Your flu and COVID test were negative. You probably have a viral infection. Take Tylenol or other ybqe-qaf-vaypbhg medications like Coricidin HBP etc. as needed for your cold symptoms. You should avoid decongestants as these can raise your blood
pressure. Your blood pressure was mildly elevated today. Have this rechecked next week. Rest, drink fluids, apply a small layer of Vicks underneath your nostril to help you breathe. Return for any severe symptoms like severe diarrhea,
dehydration, high fever, chest pain or shortness of breath or any concerns
Interventions
Interventions:
*Risk Screen - Suicide Last Done: 12/17/24 14:35
*General Assessment Last Done: 12/17/24 14:35
*Neglect/Abuse Screening Last Done: 12/17/24 14:35
*ED COVID-19 Vaccine History Last Done: 12/17/24 14:35
*Nursing Disposition Last Done: 12/17/24 16:40
Discharge Date and Time
Discharge Date/Time: 12/17/24 16:53
Print Language: SAMI
== END 2024-12-17 16:53 | disposition home or self-care (01) ==
LOC: EMR 14:16
PROVIDERS: Emergency Medicine; EMERGENCY PHYSICIAN Emergency Medicine
DX: J06.9 Acute upper respiratory infection, unspecified (principal); I10 Essential (primary) hypertension; E78.00 Pure hypercholesterolemia, unspecified; Z86.16 Personal history of COVID-19
CPT/HCPCS: 99283; 87502; 87811

== ENCOUNTER → 2025-03-01 08:40 | Outpatient (REF) | payer MEDICARE, SELFPAY ==
[2025-03-01 10:32] LABS: % Basophils 0.6 % (0-2); % Eosinophils 1.7 % (0-6); % Immature Granulocytes 0.3 % (0-0.5); % Monocytes 7.3 % (1.7-9.3); % Neutrophils 56.1 % (42.2-75.2); Absolute Basophils 0.1 10^3/uL (0-0.2); Absolute Eosinophils 0.2 10^3/uL (0-0.7); Absolute Lymphocytes 3.4 10^3/uL (1.2-3.4); Absolute Monocytes 0.7 10^3/uL (0.1-0.6); Absolute Neutrophils 5.6 10^3/uL (1.4-6.5); Hematocrit 39.9 % (37.0-47.0); Hemoglobin 12.4 g/dL (12.0-16.0); Mean Corp Hgb Conc. 31.1 g/dL (33.0-37.0); Mean Corpuscular Hgb 20.5 pg (27.0-31.0); Mean Corpuscular Volume 65.8 fL (81.0-99.0); Nucleated Red Blood Cells % 0 %; Platelet Count 255 10^3/uL (130-400); Red Blood Cell Count 6.06 10^6/uL (4.20-5.40); Red Cell Dist. Width 17.5 % (11.5-14.5)
[2025-03-01 11:01] LABS: ALT (SGPT) < 10 U/L (0-35); AST (SGOT) 23 U/L (14-36); Albumin 3.7 g/dl (3.5-5.0); Alkaline Phosphatase 145 U/L (38-126); Blood Urea Nitrogen 19 mg/dl (7-17); Calcium 9.5 mg/dl (8.4-10.2); Carbon Dioxide 27 mmol/L (22-30); Chloride 109 mmol/L (98-107); Glucose 84 mg/dl (70-99); Potassium 4.5 mmol/L (3.5-5.1); Sodium 144 mmol/L (135-145); Total Bilirubin 0.5 mg/dl (0.2-1.3); Total Protein 6.6 g/dl (6.3-8.2); eGFR > 60.00
[2025-03-01 13:45] LABS: TSH Reflex To Free T4 1.93 uIU/ml (0.47-4.68)
== END ==
LOC: RAD 08:40
PROVIDERS: ATTENDING PHYSICIAN Nurse Practitioner Primary Care; FAMILY PHYSICIAN Internal Medicine
DX: Z78.0 Asymptomatic menopausal state (principal); R42 Dizziness and giddiness
CPT/HCPCS: 36415; 77080; 80053; 84443; 85025

== ENCOUNTER 2025-04-23 08:53 | Emergency (ER) | payer MEDICARE, SELFPAY ==
[2025-04-23 08:58] VITALS: BP 139/78
--- NOTE | 2025-04-23 09:37 | ED.GENMED ---
History of Present Illness
General
Chief Complaint: Musculo-Skeletal Complaint
Source: patient
Exam Limitations: none
Time Seen by Provider: 04/23/25 09:16
Nursing documentation reviewed up to this point in time: agreed with
History of Present Illness
History of Present Illness:
69-year-old female history of plantar fasciitis years ago treated with surgery out of boot presents with right bottom foot pain for less than a day reminiscent of her plantar fasciitis did not take any meds but tried to stretch it with no relief no
fever denies stepping on any glass, not known to be diabetic, no calf pain
Past History
Past History
ED Past Medical History: HTN, Hypercholesterolemia and Other (COVID in January 2021; chronic insomnia, osteoarthritis, anemia)
ED Past Surgical History: Gynecological and Orthopedic (Chronic problems with her feet.)
Social History
Tobacco: Non-smoker
Alcohol: None
Drug: None
Personal:
Living: with family
Employment: Disabled
Family History
Family History: Other (Noncontributory)
Review of Systems
Review of Systems
All Other Systems: Not applicable
Constitutional: Denies fever or chills
EENT: Reports no symptoms
Respiratory: Reports no symptoms
Musculoskeletal: Reports joint pain and muscle pain
Phy Exam
Physical Exam
Physical Exam:
Physical Exam
General: no apparent distress, not acutely ill
Neck: No jaundice
Heart: Regular
Lungs: no acute respiratory distress.
Neuro: alert and oriented. no focal neurological deficits
Skin: no rash
Psychiatric: well kept. interactive and cooperative
Extremities: Minimal tenderness plantar surface of the right foot no cellulitis no breaks in the skin no warm
Course
Orders/Labs/Results
Orders:
Orders
04/23/25 09:32
Acetaminophen [Tylenol] 650 mg PO NOW STA
04/23/25 09:36
Cast Shoe Right-Treatment ONCE
Ibuprofen [Motrin] 400 mg PO NOW STA
Vital Signs
Initial and Last Documented VS:
Initial Vital Signs
Temp Pulse Resp BP Pulse Ox
98 F 92 16 139/78 98
04/23/25 08:58 04/23/25 08:58 04/23/25 08:58 04/23/25 08:58 04/23/25 08:58
Last Documented Vital Signs
Temp Pulse Resp BP Pulse Ox
98 F 92 16 139/78 98
04/23/25 08:58 04/23/25 08:58 04/23/25 08:58 04/23/25 08:58 04/23/25 08:58
MDM/Problems Addressed
Differential Diagnosis Includes:
Plantar fasciitis, cellulitis osteoarthritis neuropathy
MDM/Problems Addressed:
Right bottom of the foot pain
Chronic conditions affecting care:
Plantar fascia
Acute Exacerbation and/or Progression of Chronic Illness:
Plantar fascia
*Pulse Oximetry
Patient hypoxic: no
*Critical Care Note
Total Time (30-74mins, 75-104mins- exclusive of procedures): Not Applicable
Update Note
Update Note:
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
ED Attending Note
-
Portions of this chart may have been created with voice recognition software.� Occasional wrong word or��sound alike� substitutions may have occurred due to the inherent limitations of voice recognition software.
Discharge Plan
Departure
Patient Disposition: Home (Routine Discharge)
Date of Disposition: 04/23/25
Time of Disposition: 09:34
Patient with high blood pressure during this ER visit?: No
Condition: Good
Discharge Problem:
Plantar fasciitis of right foot
Instructions: Plantar fasciitis, Cast Care, Exercises for plantar fasciitis
Prescriptions:
New
ibuprofen 400 mg tablet
400 mg PO Q6H PRN (Reason: Pain) Qty: 30 0RF
No Action
clonazepam 1 mg Tablet
1.5 mg PO HS
Patient Comments:
09/08/2023: last filled 09/07/23, 60 tabs for 30 days from [place]
atorvastatin 10 mg tablet
10 mg PO DAILY@1930
clonazepam 1 mg tablet
0.5 mg PO DAILY@0100 PRN (Reason: sleep)
Patient Comments:
09/08/2023: last filled 09/07/23, 60 tabs for 30 days from [place]
prednisolone acetate 1 % drops,suspension
1 drp LEFT EYE QID
hydrochlorothiazide 25 mg tablet
25 mg PO DAILY
carbidopa-levodopa 25-100 mg tablet
2 tab PO DAILY@2000
carbidopa-levodopa 25-100 mg tablet
1 tab PO DAILY@0400
pregabalin 75 mg capsule
75 mg PO HS
Patient Comments:
09/08/2023: last filled 08/13/23, 90 tabs for 90 days from [place]
meclizine 25 mg tablet
25 mg PO BID PRN (Reason: dizziness) Qty: 5 0RF
ciprofloxacin-dexamethasone 0.3-0.1 % drops,suspension
4 drp otic (ear) BID 7 Days Qty: 7.5 0RF
Referrals:
Rola Mcclellan DPM [[facility]iatry] - Next open appointment
Activity Restrictions/Additional Instructions:
Use walking shoe, ibuprofen or Tylenol for pain
Interventions
Interventions:
*Risk Screen - Suicide Last Done: 04/23/25 08:58
*Neglect/Abuse Screening Last Done: 04/23/25 08:58
Discharge Date and Time
Print Language: HUNGARIAN
[2025-04-23] MEDS: MOTRIN 400 MG PO (10:28)
== END 2025-04-23 11:45 | disposition home or self-care (01) ==
LOC: EMR 08:53
PROVIDERS: EMERGENCY PHYSICIAN Emergency Medicine; FAMILY PHYSICIAN Internal Medicine
DX: M72.2 Plantar fascial fibromatosis (principal)
CPT/HCPCS: 99283

== ENCOUNTER → 2025-04-25 09:37 | Outpatient (REF) | payer MEDICARE, SELFPAY ==
[2025-04-25 11:31] LABS: ALT (SGPT) 15 U/L (0-35); AST (SGOT) 26 U/L (14-36); Albumin 4.1 g/dl (3.5-5.0); Alkaline Phosphatase 128 U/L (38-126); Total Bilirubin 0.4 mg/dl (0.2-1.3); Total Protein 6.9 g/dl (6.3-8.2)
== END ==
LOC: REG 09:37
PROVIDERS: ATTENDING PHYSICIAN Nurse Practitioner Primary Care; FAMILY PHYSICIAN Internal Medicine
DX: R74.8 Abnormal levels of other serum enzymes (principal)
CPT/HCPCS: 36415; 80076

== ENCOUNTER 2025-06-11 13:19 | Inpatient (IN) | payer MEDICARE, SELFPAY ==
[2025-06-08] VITALS (8 sets, daily range): BP systolic 99–150; BP diastolic 57–87; BMI 34.8; BMI 34.7
--- NOTE | 2025-06-08 07:57 | ED.GENMED ---
History of Present Illness
<Arun Tejeda Yael, - Last Filed: 06/09/25 13:06>
General
Chief Complaint: Numbness
Time Seen by Provider: 06/08/25 07:57
History of Present Illness
History of Present Illness:
TIME OF INITIAL EVALUATION
- 8 AM
REVIEW OF OLD RECORDS
- The patient has history of high blood pressure and hyperlipidemia
Note:
CHIEF COMPLAINT(S)
Right arm numbness and weakness, leg instability.
HISTORY OF PRESENT ILLNESS
The patient is a 69-year-old female who presented with numbness and loss of function in her right arm and leg instability. The symptoms began when she woke up on Thursday, two days ago, when she noticed her right arm went numb and limp after taking a
shower. She was able to move the arm, but could not hold onto objects securely, resulting in her hand slipping off items. This episode lasted for part of the day. On the morning of the visit, she again experienced numbness in her right arm and was
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 Additionally, while walking, she felt as though her legs were giving out, affecting both legs. The patient described her legs as wobbling. She finds these episodes concerning, especially in light of having lost her father a
month prior, although she acknowledges her symptoms predominantly affect one side.
The patient visits a neurologist for sleep troubles and restless legs but denies any history of stroke. She is on carbidopa levodopa for the possibly of Parkinson's and also takes magnesium for restless legs.
ADDITIONAL HISTORY OBTAINED FROM SOURCES OTHER THAN THE PATIENT
The patient mentioned she would call for an ambulance when the numbness occurred this morning, indicating family involvement in care decisions.
CHRONIC MEDICAL CONDITIONS SIGNIFICANTLY AFFECTING CARE
The patient has restless leg syndrome.
SOCIAL DETERMINANTS AFFECTING HEALTH
The patient reported the recent loss of her father, which is causing emotional stress.
PHYSICAL EXAM
General: Alert, no acute distress.
Skin: Warm, dry.
Head: Normocephalic, atraumatic.
Neck: Supple, trachea midline.
Eyes, Ears, Nose, Mouth and Throat: Oral mucosa moist.
Cardiovascular: Normal peripheral perfusion, no edema.
Respiratory: Respirations are non-labored.
Gastrointestinal: Abdomen nondistended.
Musculoskeletal: Normal range of motion, normal strength.
Neurological: Alert and oriented to person, place, time, and situation. Positive arm numbness and weakness; strength appears diminished but no clear focal deficit. Sensation to light touch is generally preserved. The Romberg test and [id number]
test performed adequately.
Psychiatric: Cooperative, appropriate mood & affect but appears somewhat anxious.
PROBLEM LIST
Acute:
- Numbness and weakness in the right arm
- Bilateral leg instability
Chronic:
- Restless leg syndrome
PLAN
- Obtain a head CT scan for further evaluation of neurological symptoms and rule out acute intracranial pathology.
- Lab work has been ordered and results will be reviewed.
- Consult with a neurologist to discuss potential neurological conditions.
- Discuss imaging findings and further steps once available.
DIFFERENTIAL DIAGNOSIS
The Differential Diagnosis includes, in no particular order and is not limited to:
1. Transient Ischemic Attack
2. Stroke
3. Peripheral Neuropathy
4. Multiple Sclerosis
5. Restless Leg Syndrome exacerbation
6. Anxiety/Stress-related symptoms
7. Simple Partial Seizure
8. Vitamin B12 deficiency
9. Cervical Radiculopathy
10. Claudication due to peripheral vascular disease
48hrs ago, had about 8hrs of RUE numbness and weakness along w/ trouble walking. No neck pain. Today, symptoms recurred. Overall improved now, but still has subjective paresthesias. NIHSS 0. In sinus. No prior TIA/CVA. A neurologist prescribed
carbidopa/levodopa for questionable Parkinson's and magnesium for restless legs. No antiplatelets nor anticoagulants.
RADIOLOGY
- CT head obtained which was unremarkable, ultrasound imaging shows left carotid stenosis that may be as high as 70% or even higher
EKG
- Sinus 89, leftward axis deviation, nonspecific ST abnormality, no significant change from 05/28/2024
LABS
- CBC and chemistries relatively unremarkable, TSH normal
UPDATE
-SUMMARY OF ENCOUNTER
The patient, a 69-year-old female, was seen in the emergency department due to right arm numbness and weakness, as well as bilateral leg instability. Following the physical examination and patient history, a carotid ultrasound was conducted. The
imaging suggested the possibility of stenosis of greater than 70%. Based on the ultrasound findings and the patients symptoms, there is a heightened concern for potential cerebrovascular pathology.
MANAGEMENT OF THE PATIENTS CARE WAS DISCUSSED WITH
Discussion was held with Dr. Keyes, who initially recommended dual anti-platelet therapy. However, due to the ultrasound findings, a vascular consultation was initiated, and the vascular team will assess the patient in the emergency department.
PLAN
Proceed with consultation from the vascular surgery team for further evaluation of the carotid stenosis and determine if any surgical intervention is necessary. Additionally, monitor the patients neurological status closely.
INDEPENDENT REVIEW OF LABS AND INTERPRETATION OF TESTS
My independent interpretation of the carotid ultrasound suggests the possibility of stenosis of greater than 70%.
MEDICAL DECISION MAKING
-Complexity of Data Reviewed:
Chronic conditions affecting care [Restless leg syndrome]
Differential Diagnosis includes:
1. Transient Ischemic Attack
2. Stroke
3. Peripheral Neuropathy
4. Multiple Sclerosis
5. Restless Leg Syndrome exacerbation
6. Anxiety/Stress-related symptoms
7. Simple Partial Seizure
8. Vitamin B12 deficiency
9. Cervical Radiculopathy
10. Claudication due to peripheral vascular disease
-Data:
Category 1
My independent interpretation of the carotid ultrasound suggests the possibility of stenosis of greater than 70%.
Category 3
Discussion of management with Dr. Keyes and vascular consultation is underway.
DIAGNOSIS
Consideration of Transient Ischemic Attack, ICD-10: G45.9
Consideration of Carotid Artery Stenosis, ICD-10: I65.23
Given the abnormality on carotid ultrasound imaging, vascular was consulted and I have ordered a CTA.
CTA shows less than 70% stenosis bilaterally
Currently awaiting vascular attending for definitive disposition
Past History
<Arun Conley DO - Last Filed: 06/09/25 13:06>
Past History
ED Past Medical History: HTN, Hypercholesterolemia and Other (COVID in January 2021; chronic insomnia, osteoarthritis, anemia)
ED Past Surgical History: Gynecological and Orthopedic (Chronic problems with her feet.)
Social History
Tobacco: Non-smoker
Alcohol: None
Drug: None
Personal:
Living: with family
Employment: Disabled
Family History
Family History: Other (Noncontributory)
Phy Exam
<Arun Conley DO - Last Filed: 06/09/25 13:06>
Physical Exam
Physical Exam:
See HPI
Course
<Arun Conley DO - Last Filed: 06/09/25 13:06>
Orders/Labs/Results
Orders:
Orders
06/08/25 08:08
CT Head W/o Iv Contrast Urgent
Comment:
Reason For Exam: intermittent RUE numb/weak; trouble walking
06/08/25 08:09
Electrocardiogram (*1) Urgent
Reason for Study: TIA/Stroke
EKG- Treatment ONCE
06/08/25 08:23
Consult Neurology [NEUROLOGY CONSULT] Urgent
Consulting Provider: Gonzalez Keyes
Was physician already notified: Yes
06/08/25 08:26
Add On- LAB Routine
Tests Added?: folate, ferritin, TSH reflex, B12, lipid panel, hbA1c
06/08/25 08:33
US Cerebrovascular Routine
Comment:
Reason For Exam: transient R arm weakness, refused CTA
06/08/25 08:45
Basic Metabolic Panel Urgent
Cardiovascular Evaluation Urgent
Complete Blood Count/With Diff Urgent
Ferritin Urgent
Comment: ADD
Folate Urgent
Comment: ADD
Glycohemoglobin (HgbA1c) Urgent
TSH Reflex To Free T4 Urgent
Comment: ADD
Vitamin B12 Urgent
Comment: ADD
06/08/25 11:00
Aspirin Chewable [Low Strength Aspirin] 81 mg PO DAILY
Clopidogrel Bisulfate [Plavix] 75 mg PO DAILY
06/08/25 11:48
CT Head & Neck Angio W/wo IV Urgent
Comment:
Reason For Exam: abnormal carotid US
06/08/25 Dinner
Cholesterol Lowering
At Your Request: Full Participation
Does patient need a safe tray?: No
Cholesterol Lowering: Sodium, 2 Gram
06/08/25 16:26
Admit/Transfer Patient As Directed
Co-Sign Provider:
Level of Care: Observation services
Assign to:: Telemetry
Physician / Group: ofelia doll
Diagnosis: R Sided weakness concern CVA/TIA, left carotid stenosis
Reason for Telemetry: CVA/TIA
Date to Stop Telemetry: 06/11/25
Time to Stop Telemetry: 11:00
Reason for Hospitalization: R Sided weakness concern CVA/TIA, left carotid stenosis
Code Status As Directed
Resuscitation Status: Full Code
06/08/25 16:32
PRN Pain Medication Management As Directed
May give lesser potent ordered pain med per pt: Yes
preference::
Protocol:: Medication orders for pain may be administered in a
manner that supports deferring to patient preference
when the pt is:
- Requesting an ordered lesser potent pain medication.
Least to most potent pain medications are defined
as: acetaminophen < NSAID < tramadol < opioids
(morphine, oxycodone, hydromorphone).
- Requesting a lesser dose of the same medication IF
ORDERED.
- Requesting a less intrusive route of administration
if both routes are prescribed by the provider (PO <
IV).
06/08/25 16:35
SURGICAL CONSULT Routine
Consulting Provider: Alexys Blanco III
Was physician already notified: Yes
Reason for consult: right sided weakness left carotid stenosis
06/08/25 18:00
Atorvastatin [Lipitor] 40 mg PO QPM
06/08/25 18:02
Acetaminophen [Tylenol] 650 mg PO Q4HPRN PRN
06/08/25 18:02
Activity As Directed
Activity Level: As Tolerated
Neurological Checks As Directed
Frequency: q4h
Pneumatic Compression Sleeves As Directed
Type: Knee high
Vital Signs As Directed
Frequency: Per unit guidelines
Ot Eval And Treat Routine
Pt Eval And Treat Routine
Activity Level: As Tolerated
DX Deep Vein Thrombosis Video Routine
06/08/25 18:38
Lorazepam [Ativan] 1 mg PO ONCE PRN
06/08/25 22:00
Carbidopa/Levodopa [Sinemet 25-100] 2 tablet PO HS
Clonazepam [Klonopin] 1.5 mg PO HS
Pregabalin [Lyrica] 150 mg PO HS
06/09/25 04:00
Carbidopa/Levodopa [Sinemet 25-100] 1 tablet PO DAILY@0400
06/09/25 06:00
MR Brain Without Contrast IN AM
Comment:
Reason For Exam: cva tia
OK for patient to be off Cardiac Monitoring for MRI: Yes
Recent pill cam endoscopy?: No
Pacemaker/Defibrillator?: No
06/09/25 06:56
Complete Blood Count/With Diff IN AM
Comprehensive Metabolic Panel IN AM
06/09/25 08:00
Calcium Carbonate [Oscal Tom 500] 500 mg PO DAILY
Cholecalciferol (Vitamin D3) [VITAMIN D3 (cholecalciferol)] 25 mcg PO DAILY
Multivitamin [Theragran] 1 tablet PO DAILY
06/11/25 11:00
DC Protocol for Telemetry ONCE
Abnormal Lab Results
06/08/25
08:45
RBC 6.69 H 10^6/uL
(4.20-5.40)
MCV 66.8 L fL
(81.0-99.0)
MCH 20.5 L pg
(27.0-31.0)
MCHC 30.6 L g/dL
(33.0-37.0)
RDW 18.2 H %
(11.5-14.5)
MPV 11.4 H fL
(7.4-10.4)
Absolute Monos (auto) 0.7 H 10^3/uL
(0.1-0.6)
BUN 22 H mg/dl
(7-17)
Glucose 102 H mg/dl
(70-99)
Calcium 10.3 H mg/dl
(8.4-10.2)
Triglycerides 261 H mg/dl
(10-149)
VLDL Cholesterol, Calc 52 H mg/dl
(0-30)
Folate > 20.0 H ng/ml
(2.76-20)
06/08/25 08:45
06/08/25 08:45
Vital Signs
Initial and Last Documented VS:
Initial Vital Signs
Temp Pulse Resp
36.6 C 90 18
06/08/25 07:54 06/08/25 07:54 06/08/25 07:54
Last Documented Vital Signs
Temp Pulse Resp BP Pulse Ox
36.6 C 84 18 119/68 95
06/09/25 12:06 06/09/25 12:06 06/09/25 12:06 06/09/25 12:06 06/09/25 12:06
<Alena Looney, - Last Filed: 06/08/25 19:53>
Orders/Labs/Results
Orders:
Orders
06/08/25 08:08
CT Head W/o Iv Contrast Urgent
Comment:
Reason For Exam: intermittent RUE numb/weak; trouble walking
06/08/25 08:09
Electrocardiogram (*1) Urgent
Reason for Study: TIA/Stroke
EKG- Treatment ONCE
06/08/25 08:23
Consult Neurology [NEUROLOGY CONSULT] Urgent
Consulting Provider: Gonzalez Keyes
Was physician already notified: Yes
06/08/25 08:26
Add On- LAB Routine
Tests Added?: folate, ferritin, TSH reflex, B12, lipid panel, hbA1c
06/08/25 08:33
US Cerebrovascular Routine
Comment:
Reason For Exam: transient R arm weakness, refused CTA
06/08/25 08:45
Basic Metabolic Panel Urgent
Cardiovascular Evaluation Urgent
Complete Blood Count/With Diff Urgent
Ferritin Urgent
Comment: ADD
Folate Urgent
Comment: ADD
Glycohemoglobin (HgbA1c) Urgent
TSH Reflex To Free T4 Urgent
Comment: ADD
Vitamin B12 Urgent
Comment: ADD
06/08/25 11:00
Aspirin Chewable [Low Strength Aspirin] 81 mg PO DAILY
Clopidogrel Bisulfate [Plavix] 75 mg PO DAILY
06/08/25 11:48
CT Head & Neck Angio W/wo IV Urgent
Comment:
Reason For Exam: abnormal carotid US
06/08/25 Dinner
Cholesterol Lowering
At Your Request: Full Participation
Does patient need a safe tray?: No
Cholesterol Lowering: Sodium, 2 Gram
06/08/25 16:26
Admit/Transfer Patient As Directed
Co-Sign Provider:
Level of Care: Observation services
Assign to:: Telemetry
Physician / Group: ofelia doll
Diagnosis: R Sided weakness concern CVA/TIA, left carotid stenosis
Reason for Telemetry: CVA/TIA
Date to Stop Telemetry: 06/11/25
Time to Stop Telemetry: 11:00
Reason for Hospitalization: R Sided weakness concern CVA/TIA, left carotid stenosis
Code Status As Directed
Resuscitation Status: Full Code
06/08/25 16:32
PRN Pain Medication Management As Directed
May give lesser potent ordered pain med per pt: Yes
preference::
Protocol:: Medication orders for pain may be administered in a
manner that supports deferring to patient preference
when the pt is:
- Requesting an ordered lesser potent pain medication.
Least to most potent pain medications are defined
as: acetaminophen < NSAID < tramadol < opioids
(morphine, oxycodone, hydromorphone).
- Requesting a lesser dose of the same medication IF
ORDERED.
- Requesting a less intrusive route of administration
if both routes are prescribed by the provider (PO <
IV).
06/08/25 16:35
SURGICAL CONSULT Routine
Consulting Provider: Alexys Blanco III
Was physician already notified: Yes
Reason for consult: right sided weakness left carotid stenosis
06/08/25 18:00
Atorvastatin [Lipitor] 40 mg PO QPM
06/08/25 18:02
Acetaminophen [Tylenol] 650 mg PO Q4HPRN PRN
06/08/25 18:02
Activity As Directed
Activity Level: As Tolerated
Neurological Checks As Directed
Frequency: q4h
Pneumatic Compression Sleeves As Directed
Type: Knee high
Vital Signs As Directed
Frequency: Per unit guidelines
Ot Eval And Treat Routine
Pt Eval And Treat Routine
Activity Level: As Tolerated
DX Deep Vein Thrombosis Video Routine
06/08/25 18:38
Lorazepam [Ativan] 1 mg PO ONCE PRN
06/08/25 22:00
Carbidopa/Levodopa [Sinemet 25-100] 2 tablet PO HS
Clonazepam [Klonopin] 1.5 mg PO HS
Pregabalin [Lyrica] 150 mg PO HS
06/09/25 04:00
Carbidopa/Levodopa [Sinemet 25-100] 1 tablet PO DAILY@0400
06/09/25 06:00
MR Brain Without Contrast IN AM
Comment:
Reason For Exam: cva tia
OK for patient to be off Cardiac Monitoring for MRI: Yes
Recent pill cam endoscopy?: No
Pacemaker/Defibrillator?: No
06/09/25 06:56
Complete Blood Count/With Diff IN AM
Comprehensive Metabolic Panel IN AM
06/09/25 08:00
Calcium Carbonate [Oscal Tom 500] 500 mg PO DAILY
Cholecalciferol (Vitamin D3) [VITAMIN D3 (cholecalciferol)] 25 mcg PO DAILY
Multivitamin [Theragran] 1 tablet PO DAILY
06/11/25 11:00
DC Protocol for Telemetry ONCE
Abnormal Lab Results
06/08/25
08:45
RBC 6.69 H 10^6/uL
(4.20-5.40)
MCV 66.8 L fL
(81.0-99.0)
MCH 20.5 L pg
(27.0-31.0)
MCHC 30.6 L g/dL
(33.0-37.0)
RDW 18.2 H %
(11.5-14.5)
MPV 11.4 H fL
(7.4-10.4)
Absolute Monos (auto) 0.7 H 10^3/uL
(0.1-0.6)
BUN 22 H mg/dl
(7-17)
Glucose 102 H mg/dl
(70-99)
Calcium 10.3 H mg/dl
(8.4-10.2)
Triglycerides 261 H mg/dl
(10-149)
VLDL Cholesterol, Calc 52 H mg/dl
(0-30)
Folate > 20.0 H ng/ml
(2.76-20)
06/08/25 08:45
06/08/25 08:45
Vital Signs
Initial and Last Documented VS:
Initial Vital Signs
Temp Pulse Resp
36.6 C 90 18
06/08/25 07:54 06/08/25 07:54 06/08/25 07:54
Last Documented Vital Signs
Temp Pulse Resp BP Pulse Ox
36.6 C 84 18 119/68 95
06/09/25 12:06 06/09/25 12:06 06/09/25 12:06 06/09/25 12:06 06/09/25 12:06
<Alena Looney DO - Last Filed: 06/08/25 19:53>
*Pulse Oximetry
Patient hypoxic: no
*Critical Care Note
Total Time (30-74mins, 75-104mins- exclusive of procedures): Not Applicable
<Alena Looney DO - Last Filed: 06/08/25 19:53>
Update Note
Update Note:
Attending Sign Out (Alena Looeny DO)
14:00 -assuming care of patient, 69-year-old female presenting to the emergency department for numbness and weakness to the right arm. Symptoms started 2 evenings ago. Symptoms have since resolved. Underlying concern for TIA. Patient had CT of
the brain with and neurology consult. NIH of 0. Neuro had recommended ultrasound of the carotids which does show significant stenosis of the left carotid. For this reason vascular surgery consulted. Pending vascular attending input. Likely plan
for discharge with dual antiplatelet therapy.
15:20 -patient seen by vascular surgery who is concerned about the CT scan, with soft plaque in the left internal and some concerning features distally that may suggest high risk for thromboembolism. Recommending admission. Did discuss with
patient, agreeable to staying
ED Attending Note
<Arun Conley, - Last Filed: 06/09/25 13:06>
-
Portions of this chart may have been created with voice recognition software.� Occasional wrong word or��sound alike� substitutions may have occurred due to the inherent limitations of voice recognition software.
Discharge Plan
Departure
Patient Disposition: Admit
Date of Disposition: 06/08/25
Time of Disposition: 15:27
Presentation/result/management discussed w/ accepting MD/DO: Hospitalist
Discharge Problem:
Stroke-like symptoms, Left carotid artery stenosis
Interventions
Interventions:
*Risk Screen - Suicide Last Done: 06/08/25 07:54
*General Assessment Last Done: 06/08/25 07:54
*Neglect/Abuse Screening Last Done: 06/08/25 07:54
*ED- Fall Risk Assessment Last Done: 06/08/25 17:56
*ED COVID-19 Vaccine History Last Done: 06/08/25 07:54
*Nursing Disposition Last Done: 06/08/25 17:56
ED- Neurological Assessment Last Done: 06/08/25 07:59
Discharge Date and Time
Discharge Date/Time: 06/08/25 17:56
--- NOTE | 2025-06-08 08:22 | CON.NEURO4 ---
Addendum entered and electronically signed by Gonzalez Keyes MD 06/08/25 11:52:
Studies reviewed.
I have personally examined the patient. I reviewed and agree with the AGENCY DIRECTOR's Note.
My addenda:
Awake, alert, interactive. No acute distress.
Speech intact.
Follows 2-step requests w/o difficulty. No tremor.
Extra-ocular movements grossly intact.
Facial movements full and symmetric. Hearing intact to normal conversational volume.
Normal UE movements bilaterally.
Neck: full ROM.
Chest: no dyspnea
Heart: no JVD
Ext: (-) Clubbing, (-) Cyanosis, (-) Edema
IMPRESSIONS/RECOMMENDATIONS:
Abrupt onset of right upper extremity weakness and sensory change associated with gait ataxia
Differential diagnosis includes transient ischemic attack/acute ischemic stroke
Check carotid ultrasound
If left internal carotid artery stenosis greater than 50%, would request assistance from vascular surgery to determine if the patient would benefit from surgical intervention
Provide remediation of elevated LDL by means of atorvastatin
Provide medical educational materials
Provide aspirin and clopidogrel for 21-day timeframe then aspirin alone
Would consider hypercoagulable evaluation at 6 weeks if no findings of significant importance
D/W patient
All questions answered.
Will continue to follow peripherally.
Original Note:
Documented by User: Sammie Haley NP 06/08/25 10:54
Consultation - Neurology 4
-
CONSULTING PHYSICIAN: Gonzalez Keyes MD
REFERRING PHYSICIAN: ER/Dr. Conley
DICTATED BY: DOMINGA Alford
DATE/TIME OF REQUEST: 06/08/25
DATE/TIME OF CONSULTATION: 06/08/25
Reason for Consultation: Right arm weakness, ataxia
History of Present Illness:
This is a 69-year-old right-handed female who has presented to the hospital with report of transient right upper extremity weakness and paresthesias in addition to gait ataxia. Patient reports that two days ago on 06/06/25, she woke up in her usual
state, but after showering her right arm became numb and felt 'limp.' She was unable to use her arm and couldn't grasp objects with it. She also notes that her gait was ataxic. Her symptoms lasted until the afternoon and then completely resolved.
Last night (06/07/25), she went to bed at 2100 in her usual state. She reports waking up in the middle of the night to take her Sinemet and felt in her usual state. She awoke at 0530 due to restless legs. At 0730 she notes that her right arm went
'limp' again and she was unable to brass pickler her coffee mug. Both legs were ataxic again and felt like they were going to give out on her, prompting her to call 911. CT head was obtained on arrival in the ER and is negative for any acute
abnormalities. She is severely claustrophobic and refused to stay in CT for a CTA head/neck. NIHSS is currently 0, she reports her symptoms have resolved. She denies any headache, dizziness, vision changes, and speech/swallow difficulty. She denies
any history of stroke and is not taking any blood-thinning medications. She is followed as an outpatient by Neurology Dr. Austin for restless legs syndrome, for which she is taking Sinemet. Per outpatient neurology records, she has had a left hand
tremor in the past. She is taking pregabalin for knee pain and clonazepam for insomnia. Patient notes that she has been under emotional stress due to the recent of her father and her loss of medicaid.
Past Medical History: HTN, HLD, restless legs, insomnia, osteoarthritis, osteoporosis, thalassemia
Surgical History: b/l TKR, tubal ligation, b/l carpal tunnel release, b/l cataract removal
Family History: Reviewed and noncontributory.
Social History: Denies tobacco, alcohol, and illicit drug use.
Allergies: Ceclor, acetaminophen, metaxalone, ropinirole, tramadol.
Home Medications: See below.
Review of Symptoms:
Patient denies any fever, headache, chest pain, shortness of breath, GI or symptoms.
�Per the HPI.�All systems are reviewed negative except above.
Physical Exam:
The patient is afebrile, abdomen is nondistended, breathing is unlabored, skin is warm and dry, no edema.
NIH Stroke Scale:
I performed the NIH stroke scale on the patient on 06/08/25 at 0845 The patient scored 0 points on the NIH stroke scale assessment, which were assigned as follows: See below.
Neurologic Examination:
The patient is awake, alert and oriented x 3. She is able to follow commands and answer questions appropriately. There is no aphasia or dysarthria. On cranial nerve assessment, pupils are 3 mm bilateral, round and reactive to light and
accommodation. Visual alicea are full. Extraocular movements are intact. Facial sensations are intact and bilaterally symmetrical, there is no facial asymmetry. Hearing is intact bilaterally to normal conversation volume. Tongue palate and uvula
are midline. Sternocleidomastoid strengths are full bilaterally. Motor strengths are 5/5 bilateral upper and lower extremities on medical research [place] scale. There is no drift or involuntary movement noted. Deep tendon reflexes are 2+ bilateral
upper and lower extremities and Babinski is absent bilaterally. Sensations of pain, touch, temperature and vibration are intact and bilaterally symmetrical. There was no extinction noted on double simultaneous stimulation. Coordination is intact by
finger to nose bilaterally.
Lab Results:
Neuro Imaging:
1. CT head 06/08/25: No acute intracranial abnormality noted. Minimal periventricular small vessel ischemic disease.. Stable Findings which can be seen with normal pressure hydrocephalus. Clinical correlation recommended. Stable.
2. Carotid Ultrasound 06/08/25: Right carotid: Small amount of noncalcified plaque within the proximal ICA. Any stenosis is less than 50% based upon velocity criteria. Left carotid: Calcified and noncalcified plaque within the bulb and proximal ICA
with elevated peak systolic velocity 220 cm/s. End-diastolic velocity of 83 cm/s. ICA/CCA ratio 4.17. Findings consistent with estimated stenosis of at least 50%, possibly greater than 70%. Antegrade flow within the vertebral arteries.
Differentials for the patient's presentation include:
1. Concern for symptomatic L ICA stenosis producing transient RUE weakness/paresthesias.
Patient has the following risk factors for their symptoms: L ICA stenosis, HTN, HLD
IV Tenecteplase/IAT candidacy: Not a candidate due to NIHSS 0.
Recommendations:
-Initiate DAPT with aspirin 81mg and clopidogrel 75mg daily for 21 days. After 21 days, stop clopidogrel and continue aspirin 81mg daily only, indefinitely.
-Consideration for MRI brain noncontrast imaging, patient is likely to refuse this due to claustrophobia.
-Vascular Surgery evaluation.
-Goal normotension.
-LDL goal <70. LDL is 107. Increase home atorvastatin from 10mg to 40mg daily.
-Goal normoglycemia, hbA1c is 5.5.
-Checking a ferritin level due to restless legs syndrome.
-NIHSS and neurological checks per unit guidelines.
-Provide patient with a stroke education packet.
-PT/OT evaluations.
-DVT prophylaxis.
Discussed patient care with: Dr. Keyes, the patient
Vital Signs and Labs
-
Vital Signs and Labs:
Vital Signs
Temp Pulse Resp BP Pulse Ox
97.8 F 96 22 150/76 97
06/08/25 07:54 06/08/25 08:45 06/08/25 08:45 06/08/25 08:37 06/08/25 08:30
Lab Results
06/08/25 08:45
06/08/25 08:45
Sodium 144 mmol/L (135-145) 06/08/25 08:45
Potassium 4.6 mmol/L (3.5-5.1) 06/08/25 08:45
BUN 22 mg/dl (7-17) H 06/08/25 08:45
Glucose 102 mg/dl (70-99) H 06/08/25 08:45
Calcium 10.3 mg/dl (8.4-10.2) H 06/08/25 08:45
LDL Cholesterol, Calc 107 mg/dl 06/08/25 08:45
Medications
-
Home Medications
�Medication �Instructions �Recorded
clonazepam 1 mg tablet 1.5 mg PO HS 11/15/22
atorvastatin 10 mg tablet 10 mg PO DAILY@1930 09/08/23
carbidopa 25 mg-levodopa 100 mg 1 tab PO DAILY@0400 09/08/23
tablet
carbidopa 25 mg-levodopa 100 mg 2 tab PO DAILY@199909/08/23
tablet
clonazepam 1 mg tablet 0.5 mg PO DAILY@0100 PRN sleep 09/08/23
hydrochlorothiazide 25 mg tablet 25 mg PO DAILY 09/08/23
prednisolone acetate 1 % eye 1 drp LEFT EYE QID 09/08/23
drops,suspension
pregabalin 75 mg capsule 75 mg PO HS 09/08/23
meclizine 25 mg tablet 25 mg PO BID PRN dizziness #5 tabs 05/28/24
ciprofloxacin 0.3 %-dexamethasone 4 drp otic (ear) BID 7 days #7.5 mL 05/30/24
0.1 % ear drops,suspension
ibuprofen 400 mg tablet 400 mg PO Q6H PRN Pain #30 tabs 04/23/25
NIH Stroke Score
Subsequent NIH Scale
Date of Subsequent NIH Scale: 06/08/25
Time of Subsequent NIH Scale: 08:45
NIH Stroke Score
Level of Consciousness: 0 - Alert
LOC Questions: 0-Answers both correctly
LOC Commands: 0-Performs both correctly
Best Horizontal Gaze: 0-Normal
Visual [place]: 0=Normal, no visual loss
Facial Palsy: 0=Normal, symmetrical
Motor - Right Arm: 0=No drift 10 seconds
Motor - Left Arm: 0=No drift 10 seconds
Motor - Right Le-No drift 5 seconds
Motor - Left Le-No drift 5 seconds
Limb Ataxia: 0-Absent
Sensation: 0-Normal
Best Language: 0-No aphasia
Dysarthria: 0-Normal
Extinction and Inattention: 0-No abnormality
NIH Total Score:: 0
Modified Evelyn (mRS) Score
Modified Evelyn Scale (mRS): No symptoms
Score: 0
Alteplase Contraindication
Inclusion and Exclusion criteria reviewed: Yes

Documented by User: Gonzalez Keyes MD 06/08/25 11:43
NIH Stroke Score
NIH Stroke Score
NIH Total Score:: 0
Modified [place] (mRS) Score
Score: 0
[2025-06-08 08:59] LABS: Hematocrit 44.7 % (37.0-47.0); Hemoglobin 13.7 g/dL (12.0-16.0); Mean Corp Hgb Conc. 30.6 g/dL (33.0-37.0); Mean Corpuscular Volume 66.8 fL (81.0-99.0); Nucleated Red Blood Cells % 0 %; Platelet Count 256 10^3/uL (130-400); Red Cell Dist. Width 18.2 % (11.5-14.5)
[2025-06-08 09:20] LABS: Blood Urea Nitrogen 22 mg/dl (7-17); Calcium 10.3 mg/dl (8.4-10.2); Carbon Dioxide 29 mmol/L (22-30); Chloride 107 mmol/L (98-107); Estimated Creatinine Clearance 46 ml/min; Glucose 102 mg/dl (70-99); HDL Cholesterol 38 mg/dl; LDL Cholesterol, Calculated 107 mg/dl; Potassium 4.6 mmol/L (3.5-5.1); Sodium 144 mmol/L (135-145); Very Low Density Lipoprotein 52 mg/dl (0-30); eGFR > 60.00
[2025-06-08 09:58] LABS: Glycohemoglobin (HgbA1c) 5.5 % (4.0-5.6)
[2025-06-08 11:27] LABS: Ferritin 82.1 ng/ml (11.1-264.0)
[2025-06-08 11:59] LABS: Folate > 20.0 ng/ml (2.76-20); Vitamin B12 673 pg/ml (239-931)
--- NOTE | 2025-06-08 12:09 | CON.VAS ---
Addendum entered and electronically signed by Alexys Blanco III, MD 06/08/25 15:59:
This patient was seen and examined in collaboration with DOMINGA Christy. I agree with the history and physical exam as well as the assessment and plan. I have the following additions:
69-year-old female
2 episodes of right arm weakness and paresthesias over the last 72 hours
Carotid duplex demonstrates soft plaque in the left internal carotid artery with velocity elevations consistent with a 50 to 69% internal carotid artery stenosis by my interpretation
CT angiogram personally reviewed and centerline reconstructions performed. She has soft plaque in the proximal left internal carotid artery with high risk features (see attached images)
My concern is that this presentation represents a TIA and the left carotid plaque is the culprit. I am concerned by the high risk features of the plaque in the more distal internal carotid artery. My recommendation is for admission. Follow-up
with neurology. MRI Brain.
Given the clinical presentation and concern over TIA with high risk features on imaging in the left carotid artery she may benefit from carotid intervention. Will discuss further with multidisciplinary input.
Signed:
Alexys Blanco III, MD
Vascular Surgery
[facility]
Addendum entered and electronically signed by DOMINGA Christy 06/08/25 15:32:
CTA reviewed with Patient and brother at bedside by Dr Blanco
Plan:
Admit to hospitalist
MRI tomorrow
Will follow up with pt/family when MRI completed for next steps
Original Note:
Consultation
Consultation Request
Date/Time Consultation Performed: 06/08/25 1130am
Performing Provider: Francis
Reason for Consultation: Carotid stenosis
Medical History
-
Chief Complaint: RUE weakness
History of Present Illness:
69 yo female with PMH significant for HTN, HLD, restless leg syndrome, insomnia presenting to the ER today for intermittent RUE weakness and paresthesias in addition to gait ataxia. Patient states two days ago she woke at her baseline but shortly
after waking noted her right arm was numb and weak. She was unable to hold objects and could not use her arm most of the day. She also noted her legs felt unsteady. Later that day she felt she was back to usual state of krystina. This morning around
7:30am she noted the same weakness to her right arm and unsteady feeling to her legs and called 911. Her symptoms had resolved upon arrival to the ER today. Head CT was negative. Patient initially refused CTA but is not amenable.
Carotid ultrasound: Right carotid: Small amount of noncalcified plaque within the proximal ICA. Any stenosis is less than 50% based upon velocity criteria.
Left carotid: Calcified and noncalcified plaque within the bulb and proximal ICA with elevated peak systolic velocity 220 cm/s. End-diastolic velocity of 83 cm/s. ICA/CCA ratio 4.17. Findings consistent with estimated stenosis of at least 50%,
possibly greater than 70%.
Vascular consult for carotid stenosis. Pt seen at bedside this am with Son present.
Patient notes that she has been under emotional stress due to the recent of her father and her loss of medicaid.
Past Medical History
Past Medical History: HTN and Other (HLD, restless legs, insomnia, osteoarthritis, osteoporosis, thalassemia)
Past Surgical History: Other (b/l TKR, tubal ligation, b/l carpal tunnel release, b/l cataract removal)
Social History
Tobacco: Non-Smoker
Alcohol: None
Drug: None
Personal:
Employment: Disabled
Family History
Family History: Reviewed & Not Pertinent
Allergies / Home Medications
Allergy/AdvReac Type Severity Reaction Status Date / Time
cefaclor (From Ceclor) Allergy Mild Rash Verified 04/23/25 08:58
acetaminophen Allergy Unknown 'upset Verified 04/23/25 08:58
stomach'
metaxalone Allergy Unknown Unknown Verified 04/23/25 08:58
ropinirole (From Requip) Allergy Rash Verified 04/23/25 08:58
tramadol Allergy Rash Verified 04/23/25 08:58
�Medication �Instructions �Recorded �Confirmed �Type
clonazepam 1 mg tablet 1.5 mg PO HS 11/15/22 06/08/25 History
atorvastatin 10 mg tablet 10 mg PO QPM 09/08/23 06/08/25 History
carbidopa 25 mg-levodopa 100 mg 1 tab PO DAILY@0400 09/08/23 06/08/25 History
tablet
carbidopa 25 mg-levodopa 100 mg 2 tab PO HS 09/08/23 06/08/25 History
tablet
pregabalin 75 mg capsule 150 mg PO HS 09/08/23 06/08/25 History
calcium carbonate 500 mg PO DAILY 06/08/25 06/08/25 History
cholecalciferol (vitamin D3) 25 25 mcg PO DAILY 06/08/25 06/08/25 History
mcg (1,000 unit) tablet (Vitamin
D3)
therapeutic multivitamin 1 tab PO DAILY 06/08/25 06/08/25 History
Review of Systems
-
History Source: Patient and Family
All other systems: Negative unless noted
Constitutional: Reports No Symptoms
EENT: Reports No Symptoms
Respiratory: Reports No Symptoms
Cardiac: Reports No Symptoms
Vascular: Denies Leg Pain / Claudication
Abdomen/GI: Reports No Symptoms
: Reports No Symptoms
Musculoskeletal: Reports No Symptoms
Skin: Reports No Symptoms
Neurological: Reports Weakness (RUE- resolved)
Endocrine: Reports No Symptoms
Physical Exam
Vital Signs
Temp Pulse Resp BP Pulse Ox
97.8 F 96 22 150/76 97
06/08/25 07:54 06/08/25 08:45 06/08/25 08:45 06/08/25 08:37 06/08/25 08:30
Lab Results
06/08/25 08:45
06/08/25 08:45
Physical Exam
General: No Apparent Distress
HEENT: Normocephalic and Atraumatic
Respiratory: Non Labored Respirations
Cardiac: Negative JVD
GI: Soft and Non Tender
Musculoskeletal: No Clubbing and No Cyanosis
Skin: Warm
Neuro: Awake, Alert and Oriented
Psych: Calm
Assessment / Plan
-
69 yo female presenting to the ER today for RUE weakness, unsteady gait
Vascular consult for carotid stenosis
Plan:
CTA head/neck pending
Will follow up with pt after scan complete for next steps
Data Reviewed
-
Ultrasound: Discussed with Patient
Labs: Labs Reviewed by me
[2025-06-08] MEDS: PLAVIX 75 MG PO (15:25)
[2025-06-08] MEDS: LOW STRENGTH ASPIRIN 81 MG PO (15:25)
--- NOTE | 2025-06-08 15:47 | HPS.HSE ---
Family Physician
-
Family Physician: Attila Cardoso MD
Chief Complaint
-
Right sided weakness
History of Present Illness
69-year-old female from home where she lives with her daughter who states twice this past week she felt weakness on her right side arm and leg with walking she felt off. She denies any sense of spinning or dizziness as she has had vertigo in the
past with vestibular therapy. She denies current headache, fever, chills, chest pain, palpitations, shortness of breath, cough, abdominal pain, nausea, vomiting, diarrhea, urinary symptoms. She is very anxious as she tells me she is extremely
claustrophobic and constantly worries about everything. She currently has no neurological deficits walked to the bathroom with steady gait
She has a past medical history of hypertension, hyperlipidemia, back pain, migraines, hydrocephaly at with shunt placed in back, insomnia, constipation, osteoarthritis, plantar fasciitis, anemia/thalassemia, right hearing impaired restless leg
syndrome
Medical History
Past Medical History
Past Medical History: Reports Other
Additional Past Medical History:
Back pain
Migraines
HTN
HLD
Insomnia
Hydrocephalus at with shunt placed in back
Constipation
Osteoarthritis
Anemia/thalassemia
[place] right ear
Restless leg syndrome
Past Surgical History: Reports Other
Additional Past Surgical History:
Right knee arthroscopy
Left knee arthroscopy
Tubal ligation 1997
Right knee replacement 04/14/2018
[employer] shunt placed in back as child
Left knee replacement 09/04/2018
Bilateral CTR
Cataract extraction
Social History
Tobacco: Non-smoker
Alcohol: None
Drug: None
Personal: Single
Living: With Family (38-year-old daughter lives with her)
Employment: Retired
Family History
Family History: Not pertinent
Allergies / Home Medications
Allergies reflects when Allergies were last updated in [facility].
Home Medications with original date entered in [facility]
Allergy/Medication List:
Allergies
Allergy/AdvReac Type Severity Reaction Status Date / Time
cefaclor (From Ceclor) Allergy Mild Rash Verified 04/23/25 08:58
acetaminophen Allergy Unknown 'upset Verified 04/23/25 08:58
stomach'
metaxalone Allergy Unknown Unknown Verified 04/23/25 08:58
ropinirole (From Requip) Allergy Rash Verified 04/23/25 08:58
tramadol Allergy Rash Verified 04/23/25 08:58
Home Medications
clonazepam 1 mg tablet 1.5 mg PO HS Mental Health/Anxiety 11/15/22
atorvastatin 10 mg tablet 10 mg PO QPM High Cholesterol 09/08/23
carbidopa 25 mg-levodopa 100 mg tablet 1 tab PO DAILY@0400 Neurological Condition 09/08/23
carbidopa 25 mg-levodopa 100 mg tablet 2 tab PO HS Neurological Condition 09/08/23
pregabalin 75 mg capsule 150 mg PO HS Pain 09/08/23
calcium carbonate 500 mg PO DAILY Supplement 06/08/25
cholecalciferol (vitamin D3) 25 mcg (1,000 unit) tablet (Vitamin D3) 25 mcg PO DAILY Supplement 06/08/25
therapeutic multivitamin 1 tab PO DAILY Supplement 06/08/25
Review of Systems
-
History Source: Patient
A 12 point ROS was completed and negative except as noted: Yes
Constitutional: Denies Fever, Fatigue or Chills
EENT: Denies Sore Throat or Runny Nose
Respiratory: Denies Cough or Trouble Breathing
Cardiac: Denies Chest Pain, Diaphoresis, Palpitations or Syncope
Abdomen/GI: Denies Abdominal Pain, Nausea, Vomiting, Diarrhea, Constipated, Bloody Stools or Black Stools
: Denies Dysuria, Frequency, Flank Pain, Incontinence, Difficulty Voiding, Urgency or Bleeding
Musculoskeletal: Reports Other (Chronic herbedens nodes to DIP joints with history of osteoarthritis); Denies Joint Pain or Edema
Skin: Denies Itching or Rash
Neurological: Reports Weakness (Reported right arm right leg); Denies Dizzy or Headache
Endocrine: Reports No Symptoms
Hematologic/Lymphatic: Reports No Symptoms
Psych: Reports Calm
Physical Exam
Vital Signs
Vital Signs
Temp Pulse Resp BP Pulse Ox
97.8 F 97 20 122/57 94
06/08/25 07:54 06/08/25 14:15 06/08/25 14:15 06/08/25 12:00 06/08/25 14:15
Physical Exam
General: No Apparent Distress, Comfortable and Conversant; No Pain, Fever or Chills
HEENT: NormoCephalic, Anicteric, Moist mucous membranes, Atraumatic, PERRLA, Aten Conjunctivae, No Ptosis, Nose Appears Normal and Neck Nontender
Respiratory: Clear; No Wheezes, Rales, Rhonchi or Crackles
Cardiac: S1/S2 and Regular Rhythm
Breast: Deferred by me
GI: Soft, Non Tender, Non Distended, Normal Bowel Sounds and No Hepatosplenomegaly
Rectal: Deferred by Provider
Musculoskeletal: No Clubbing, No Cyanosis, No Edema and Other (Chronic herbedens nodes to DIP joints with history of osteoarthritis)
Skin: Warm and Dry; No Rash or Jaundice
Neuro: AO x 3, No Motor Deficits, Nonfocal/grossly intact, Cranial Nerves Intact, No Sensory Deficits, DTR's Intact & Symmetrical and Other (Walk to bathroom [id number] with steady gait no assist); No Slurred Speech, Facial Droop, Tremors or
Sedated
Psych: Anxious
Laboratory Results
-
06/08/25 08:45
06/08/25 08:45
Impression/Plan
-
Impression/plan:
Observation telemetry
#Left carotid stenosis NEW
-Consult vascular surgery
#Right arm weakness/numbness concern for CVA/TIA
-Consult urology
- MRI brain-patient will require IV Ativan due to severe claustrophobia
- Check lipid profile, recent HgbA1c 5.5
- Increase atorvastatin from 10 mg to 40 mg daily
- Start Plavix 75 mg x 21 days, start aspirin 81 mg daily
- Consult PT/OT
Head and neck CTA:
1. Findings suggesting normal pressure hydrocephalus. Stable. Clinical correlation recommended
2.No acute vascular pathology.
3. Short segment of 50-69% proximal right common carotid artery stenosis.
4.Approximate 50% stenosis of the proximal left internal carotid artery
5. Multilevel degenerative disc disease.
6.Less than grade 1 anterolisthesis of C3 on C4
Carotid ultrasound:
Left carotid: Calcified and noncalcified plaque within the bulb and proximal ICA with elevated peak systolic velocity 220 cm/s. End-diastolic velocity of 83 cm/s. ICA/CCA ratio 4.17.
Findings consistent with estimated stenosis of at least 50%, possibly greater than 70%.
Right carotid: Small amount of noncalcified plaque within the proximal ICA. Any stenosis is less than 50% based upon velocity criteria.
Antegrade flow within the vertebral arteries.
#Hydrocephalus at with shunt placed in back
#HTN
BP 122/57
#HLD
Check lipid profile
Increase atorvastatin from 10 mg to 40 mg
#Anemia/thalassemia
Hgb 13.4, MCV 66.8>, folate 20, ferritin 82.1
#Chronic back pain
-Continue Lyrica 150 mg at bedtime
#Anxiety
#Insomnia
-Continue clonazepam 1.5 mg at bedtime
#Restless leg syndrome
Patient takes carbidopa levodopa by neurologist for this
Class I obesity�BMI 34.8
Affects all aspects of care
Weight loss recommended
Other PMH:
Migraines
Constipation
Osteoarthritis
[place] right ear
DVT prophylaxis
SCDs
Full code
--- NOTE | 2025-06-08 17:07 | W.PN.UPDATE ---
Update Note
Progress Note Update
This is an addendum to H&P written by Mignon Sylvester on 06/08/2025. �Patient seen and examined independently with QUALITY CONTROL TECHNICIAN.
69-year-old female past medical history of migraines, hypertension, hyperlipidemia, insomnia, hydrocephalus status post shunt, constipation, osteoarthritis, anemia/status anemia, restless leg syndrome, right hearing loss presenting with weakness of
the right arm and leg intermittently for past week. �No vertigo, headache, any other neurological symptoms.
Vital signs normal. �Labs unremarkable. �Neurological examination normal currently.
CT head shows no acute abnormality apart from prominent ventricles consistent with normal pressure hydrocephalus. �Vascular ultrasound shows small amount of noncalcified plaque within proximal ICA. �At least 50% stenosis of left carotid possible
greater than 70%. �CTA head and neck shows 50 to 69% proximal right common carotid artery stenosis. �50% stenosis of proximal left intra carotid artery.
Patient with possible CVA. �Check MRI brain, check A1c and lipid panel. �Aspirin, Plavix started as per neurology. �Vascular surgery consulted.
[2025-06-08] MEDS: LIPITOR 40 MG PO (19:45)
[2025-06-08] MEDS: SINEMET 25-100 2 TABLET PO (20:05)
[2025-06-08] MEDS: KLONOPIN 1.5 MG PO (20:54)
[2025-06-08] MEDS: LYRICA 150 MG PO (20:54)
[2025-06-09] VITALS (8 sets, daily range): BP systolic 106–137; BP diastolic 57–76; PULSE 95; O2SAT 95
[2025-06-09] MEDS: SINEMET 25-100 1 TABLET PO (02:32)
[2025-06-09 08:20] LABS: Hematocrit 38.7 % (37.0-47.0); Hemoglobin 12.0 g/dL (12.0-16.0); Mean Corp Hgb Conc. 31.0 g/dL (33.0-37.0); Mean Corpuscular Volume 65.9 fL (81.0-99.0); Nucleated Red Blood Cells % 0 %; Platelet Count 260 10^3/uL (130-400); Red Cell Dist. Width 16.7 % (11.5-14.5)
[2025-06-09 08:31] LABS: ALT (SGPT) < 10 U/L (0-35); AST (SGOT) 21 U/L (14-36); Albumin 3.7 g/dl (3.5-5.0); Alkaline Phosphatase 118 U/L (38-126); Blood Urea Nitrogen 20 mg/dl (7-17); Calcium 8.7 mg/dl (8.4-10.2); Carbon Dioxide 26 mmol/L (22-30); Chloride 108 mmol/L (98-107); Estimated Creatinine Clearance 51 ml/min; Glucose 86 mg/dl (70-99); Potassium 4.5 mmol/L (3.5-5.1); Sodium 140 mmol/L (135-145); Total Protein 6.3 g/dl (6.3-8.2); eGFR > 60.00
--- NOTE | 2025-06-09 09:51 | PTOTSP ---
pt currently requires supervision to no assistance to complete simple ADLs, functional transfers, ambulation. pt demonstrates no overt deficits, good insight at time of evaluation. no acute OT needs identified, will sign off.
--- NOTE | 2025-06-09 09:53 | W.PN.NEURO.1 ---
Addendum entered and electronically signed by Gonzalez Keyes MD 06/09/25 14:39:
The occipital stroke will be further evaluated by means of an echocardiogram to ensure there is no embolic etiology
Original Note:
Today's Communication / Plan
-
Appreciate vascular surgery evaluation and treatment
Goal of dual antiplatelet therapy with aspirin and clopidogrel for total of 21 days then aspirin alone
Neuro Assessment/Plan
Assessment
Abrupt onset of 2 episodes of right upper extremity weakness and sensory change associated with gait ataxia
Differential diagnosis includes transient ischemic attack/acute ischemic stroke most likely secondary to discovery of left internal carotid artery stenosis
Plan
Appreciate vascular surgery evaluation and treatment
Goal of dual antiplatelet therapy with aspirin and clopidogrel for total of 21 days then aspirin alone
Will follow as needed
Subjective/Objective
Subjective Data
Date of Service: June 09, 2025
Objective Data
Vital Signs
Temp Pulse Resp BP Pulse Ox
36.5 C 88 18 106/67 95
06/09/25 07:51 06/09/25 07:51 06/09/25 07:51 06/09/25 07:51 06/09/25 07:51
Lab Results
06/09/25 06:56
06/09/25 06:56
Sodium 140 mmol/L (135-145) 06/09/25 06:56
Potassium 4.5 mmol/L (3.5-5.1) 06/09/25 06:56
BUN 20 mg/dl (7-17) H 06/09/25 06:56
Glucose 86 mg/dl (70-99) 06/09/25 06:56
Calcium 8.7 mg/dl (8.4-10.2) D 06/09/25 06:56
LDL Cholesterol, Calc 107 mg/dl 06/08/25 08:45
Vitamin B12 673 pg/ml (239-931) 06/08/25 08:45
Patient Allergies
cefaclor (From Ceclor) Allergy (Mild, Verified 04/23/25 08:58)
Rash
acetaminophen Allergy (Unknown, Verified 04/23/25 08:58)
'upset stomach'
metaxalone Allergy (Unknown, Verified 04/23/25 08:58)
Unknown
ropinirole (From Requip) Allergy (Verified 04/23/25 08:58)
Rash
tramadol Allergy (Verified 04/23/25 08:58)
Rash
Data Reviewed
-
CT-A: Report Reviewed
Carotid Ultrasound: Report Reviewed
Reviewed with: Physician
[2025-06-09] MEDS: PLAVIX 75 MG PO (10:02)
[2025-06-09] MEDS: LOW STRENGTH ASPIRIN 81 MG PO (10:02)
[2025-06-09] MEDS: OSCAL CAL 500 500 MG PO (10:03)
[2025-06-09] MEDS: FLUSH (NSS) 1 FLUSH IV (10:03)
[2025-06-09] MEDS: THERAGRAN 1 TABLET PO (10:03)
[2025-06-09] MEDS: VITAMIN D3 (cholecalciferol) 25 MCG PO (10:03)
[2025-06-09] MEDS: ATIVAN 1 MG PO (10:45)
--- NOTE | 2025-06-09 13:54 | W.PN.UPDATE ---
Update Note
Progress Note Update
Seen and examined by me independently in collaboration with the medical physics professor.
Lab data and imaging data reviewed.
Addendum as below :
Patient's presents with 2 episodes of what looks like a TIA involving the right arm weakness. There is internal carotid abnormalities with concern of left carotid stenosis being symptomatic. Appreciate neurology and vascular input. Continue with
dual antiplatelet agent. Increase the dose of her Lipitor to 40 mg daily.
Check an MRI to rule out any stroke.
Further disposition after MRI of the brain.
In SR.
Total time spent on today's encounter was 52 minutes which included time spent in counseling the patient/family regarding diagnosis and treatment plan as listed above, goals of care, and symptom management. Case was discussed with nursing staff,
specialists, and care coordinators/case management. All labs and imaging personally reviewed by me. Remainder the time spent in detailed review of previous records, lab data, imaging, and other medical provider documentation.
--- NOTE | 2025-06-09 16:02 | W.PN.HOSP.TC ---
Today's Communication/Plan
-
Continue DAPT and high-intensity statin
Follow-up results of echocardiogram, consider JERAD based on results
Possible surgical intervention of carotid stenosis, pending further evaluation by vascular surgery
Continue to monitor clinical status
Assessment / Plan
Assessment / Plan
Ms. Salcido is a 69-year-old female with past medical history to include hypertension, hyperlipidemia, migraines, insomnia, anemia/thalassemia, restless leg syndrome, essential tremor, and hydrocephaly at with shunt who presented to the
[facility] emergency department from home via EMS due to 2 episodes of right upper extremity weakness and paresthesia associated with gait ataxia. The patient's first episode occurred upon waking Thursday (06/06) morning, and it resolved
spontaneously the same day. The second episode occurred (06/08) morning, which also resolved spontaneously the same day. After the onset of the episode on , patient called EMS for further medical evaluation. The patient's lab work
on presentation was largely unremarkable, with the exception of triglycerides of 261 and a calcium of 10.3. Patient underwent various imaging studies, including CT head without contrast, bilateral carotid ultrasound, CT angiography of the head and
neck, and brain MRI. The CT head without contrast showed no acute intracranial abnormality. Carotid ultrasound showed less than 50% stenosis on the right and estimated stenosis of at least 50%, possibly greater than 70% on the left. CT
angiography of the head and neck showed a short segment of 50 to 69% proximal right CCA stenosis and approximately 50% stenosis of the proximal left ICA. Brain MRI showed multiple acute ischemic infarcts in the cortical mckay matter of the left
frontal lobe, left parietal lobe, and left occipital lobe.
#CVA
#Carotid stenosis
Patient has had no neurologic deficits during her hospital course, though she did have 2 recent episodes of RUE weakness and paresthesia associated with gait ataxia
Continued DAPT with aspirin 81 mg and clopidogrel 75 mg for 21 days, followed by monotherapy with aspirin alone
Continue increased dose of atorvastatin 40 mg
Imaging studies, per radiology:
- Head CT without contrast: No acute intracranial abnormality
- Carotid ultrasound: Right�small noncalcified plaque in proximal ICA. Left�calcified and noncalcified plaque within the bulb and proximal ICA, c/w estimated stenosis of at least 50%, possibly greater than 70%
- CTA head/neck: Right�short segment 50 to 69% proximal CCA stenosis. Left�Approximate 50% stenosis of the proximal left ICA.
- MRI brain: Multiple acute ischemic infarcts in the cortical mkcay matter of the left frontal lobe, left parietal lobe, and left occipital lobe.
- Echocardiogram: Pending
Monitor on telemetry with concern for atrial fibrillation given stroke findings
Per vascular surgery, possible surgical intervention given high risk features of left carotid artery
Vascular surgery, neurology following
#Essential tremor
#Restless leg syndrome
Continue home regimen of carbidopa levodopa
#Anemia/thalassemia
Hemoglobin 12.0 today, stable
#Anxiety
#Insomnia
#Claustrophobia
Continue home regimen of clonazepam
Patient given lorazepam 1 mg prior to MRI for claustrophobia
DVT PPx: SCDs
CODE STATUS: Full
Disposition: Per CM, home declined VN. Pending further evaluation.
Anticipated Discharge: Within 24 hours
Subjective/Interval History
-
Date of Service: June 09, 2025
Patient is seen at the bedside on hospital day #2. Nursing reports NAEO. Patient states, 'I feel good today.' Patient reports no current complaints, including no residual neurologic deficits from the episodes this week.
Objective Data
-
Labs:
Laboratory Results
06/09/25
06:56
WBC 11.1 H
Hgb 12.0
Hct 38.7
Plt Count 260
Sodium 140
Potassium 4.5
Chloride 108 H
Carbon Dioxide 26
BUN 20 H
Creatinine 0.8
Glucose 86
Calcium 8.7 D
Total Bilirubin 0.8
AST 21
ALT < 10
Alkaline Phosphatase 118
Vital Signs:
Vital Signs
Temp Pulse Resp BP Pulse Ox
97.8 F 84 18 119/68 95
06/09/25 12:06 06/09/25 12:06 06/09/25 12:06 06/09/25 12:06 06/09/25 12:06
I&O
06/08/25 06/09/25 06/10/25
06:59 06:59 06:59
Intake Total 0 / 0
Balance 0 / 0
Review of Systems
-
History Source: Patient
Constitutional: Denies Fever, Fatigue, Chills or Weakness
EENT: Reports No Symptoms Reported
Respiratory: Denies Cough, Trouble Breathing or Wheezing
Cardiac: Denies Chest Pain, Palpitations or Syncope
Abdomen/GI: Denies Abdominal Pain, Nausea, Vomiting or Diarrhea
Musculoskeletal: Denies Edema or Muscle Weakness
Neuro: Denies Dizzy, Headache, Weakness, Numbness, Ataxia or Lightheadedness
Physical Exam
-
General: Well Developed, Well Nourished, No Apparent Distress, Comfortable and Conversant; Negative Pain, Fever, Chills or Sweats
HEENT: Normocephalic and Atraumatic
Respiratory: Clear to Auscultation and Non Labored Respirations; Negative Wheezes or Crackles
Cardiac: Regular Rhythm and S1/S2; Negative Murmur, Rub, Gallop, Tachycardic or Bradycardic
GI: Soft, Nontender and Normal Bowel Sounds
Musculoskeletal: No Cyanosis and No Edema
Neuro: Awake, AO x 3, No Motor Deficits, Central Nerve's Intact and No Sensory Deficits; Negative Tremors, Slurred Speech or Facial Droop
Psych: Calm
--- NOTE | 2025-06-09 16:30 | CM ---
Alert awake oriented patient who lives with his dgt Ariadne who lives in a 1 story home with 4 step to enter. He is independent in activities of daily living.He does not drive. He was offered VN he declined need.He said Karla or Axel can drive
[place] at [place]. [place] letter explained signed on chart.
No VN hx / No SNF history
[facility]
PCP DR Cardoso
PLAN Home Declined VN
--- NOTE | 2025-06-09 16:34 | CM ---
Alert awake oriented patient who lives with her dgt Ariadne who lives in a 1 story home with 4 step to enter. She is independent in activities of daily living.She does not drive. She was offered VN she declined need.She said Karla or Axel can
drive him home at [place]. [place] letter explained signed on chart.
No VN hx / No SNF history
[facility]
PCP DR Cardoso
PLAN Home Declined VN
--- NOTE | 2025-06-09 17:35 | W.PN.UPDATE ---
Update Note
Progress Note Update
MRI report reviewed. Acute infarcts demonstrated in the left frontal and parietal distribution which could be explained by the carotid findings. Patient also has posterior circulation findings with occipital lobe infarcts.
Discussed with neurology. Will continue workup. Echocardiogram ordered.
Will follow
Call with questions or concerns
Alexys Blanco III, MD
Vascular Surgery
[facility]
[2025-06-09] MEDS: LIPITOR 40 MG PO (17:59)
[2025-06-09] MEDS: SINEMET 25-100 2 TABLET PO (20:07)
[2025-06-09] MEDS: KLONOPIN 1.5 MG PO (21:32)
[2025-06-09] MEDS: LYRICA 150 MG PO (21:32)
[2025-06-10] MEDS: SINEMET 25-100 1 TABLET PO (01:30)
[2025-06-10 03:30] VITALS: BP 106/69
--- NOTE | 2025-06-10 06:59 | W.PN.HOSP.TC ---
Addendum entered and electronically signed by Vamshi Chew MD 06/10/25 15:11:
Seen and examined by me independently in collaboration with the medical esthetician.
Lab data reviewed.
Addendum as below :
Acute left anterior and posterior ischemic infarcts concerning for embolic stroke. Transthoracic echo without any evidence of cardiac source of emboli. So far in sinus rhythm. Neurology recommending JERAD. Consult cardiology. Continue with DAPT
and increased dose of statins.
Patient without any neurological symptoms recurrence.
Vascular following for left carotid stenosis. Unclear timing of CEA.
CW PT/OT eval
Original Note:
Today's Communication/Plan
-
Continue DAPT and high intensity statin
Possible surgical intervention of carotid stenosis, pending further evaluation by vascular surgery
Continue to monitor clinical status
Assessment / Plan
Assessment / Plan
Ms. Salcido is a 69-year-old female with past medical history to include hypertension, hyperlipidemia, migraines, insomnia, anemia/thalassemia, restless leg syndrome, essential tremor, and hydrocephaly at with shunt who presented to the
[facility] emergency department from home via EMS due to 2 episodes of right upper extremity weakness and paresthesia associated with gait ataxia. The patient's first episode occurred upon waking Thursday (06/06) morning, and it resolved
spontaneously the same day. The second episode occurred (06/08) morning, which also resolved spontaneously the same day. After the onset of the episode on , patient called EMS for further medical evaluation. The patient's lab work
on presentation was largely unremarkable, with the exception of triglycerides of 261 and a calcium of 10.3. Patient underwent various imaging studies, including CT head without contrast, bilateral carotid ultrasound, CT angiography of the head and
neck, and brain MRI. The CT head without contrast showed no acute intracranial abnormality. Carotid ultrasound showed less than 50% stenosis on the right and estimated stenosis of at least 50%, possibly greater than 70% on the left. CT
angiography of the head and neck showed a short segment of 50 to 69% proximal right CCA stenosis and approximately 50% stenosis of the proximal left ICA. Brain MRI showed multiple acute ischemic infarcts in the cortical mckay matter of the left
frontal lobe, left parietal lobe, and left occipital lobe.
#CVA
#Carotid stenosis
Patient has had no neurologic deficits during her hospital course, though she did have 2 recent episodes of RUE weakness and paresthesia associated with gait ataxia
Continued DAPT with aspirin 81 mg and clopidogrel 75 mg for 21 days, followed by monotherapy with aspirin alone
Continue increased dose of atorvastatin 40 mg
Imaging studies, per radiology:
- Head CT without contrast: No acute intracranial abnormality
- Carotid ultrasound: Right�small noncalcified plaque in proximal ICA. Left�calcified and noncalcified plaque within the bulb and proximal ICA, c/w estimated stenosis of at least 50%, possibly greater than 70%
- CTA head/neck: Right�short segment 50 to 69% proximal CCA stenosis. Left�Approximate 50% stenosis of the proximal left ICA.
- MRI brain: Multiple acute ischemic infarcts in the cortical mckay matter of the left frontal lobe, left parietal lobe, and left occipital lobe.
- Echocardiogram: LVEF 56%. No findings related to etiology of stroke.
Continue to monitor on telemetry with concern for atrial fibrillation given stroke findings
Per vascular surgery, possible surgical intervention given high risk features of left carotid artery. Follow-up vascular surgery recommendation pending.
Vascular surgery, neurology following
#Essential tremor
#Restless leg syndrome
Continue home regimen of carbidopa levodopa
#Anemia/thalassemia
Hemoglobin 11.8 today, relatively stable from 12.0 yesterday
Monitor H&H, clinical status
Transfuse for hemoglobin <7
#Anxiety
#Insomnia
#Claustrophobia
Continue home regimen of clonazepam
Patient given lorazepam 1 mg prior to MRI for claustrophobia
DVT PPx: SCDs
CODE STATUS: Full
Disposition: Per , home declined VN. Pending further evaluation.
Anticipated Discharge: Within 24 hours
Subjective/Interval History
-
Date of Service: June 10, 2025
Patient is seen at the bedside on hospital day #3. Nursing reports NAEO. No current complaints. No recurrence of neurologic symptoms.
Objective Data
-
Labs:
Laboratory Results
06/10/25
06:00
WBC Pending
Hgb Pending
Hct Pending
Plt Count Pending
Sodium Pending
Potassium Pending
Chloride Pending
Carbon Dioxide Pending
BUN Pending
Creatinine Pending
Glucose Pending
Calcium Pending
Vital Signs:
Vital Signs
Temp Pulse Resp BP Pulse Ox
98.2 F 80 18 106/69 98
06/10/25 03:30 06/10/25 03:30 06/10/25 03:30 06/10/25 03:30 06/10/25 03:30
I&O
06/08/25 06/09/25 06/10/25
06:59 06:59 06:59
Intake Total 0 / 0
Balance 0 / 0
Review of Systems
-
History Source: Patient
Constitutional: Denies Fever, Fatigue, Chills or Weakness
EENT: Denies Blurry Vision or Decreased Vision
Respiratory: Denies Cough, Trouble Breathing or Wheezing
Cardiac: Denies Chest Pain, Palpitations or Syncope
Abdomen/GI: Denies Abdominal Pain, Nausea, Vomiting or Diarrhea
Genitourinary: Denies Dysuria or Difficulty Voiding
Musculoskeletal: Denies Edema
Neuro: Reports Tremors (Patient notes some RLS overnight); Denies Dizzy, Headache, Weakness, Numbness, Ataxia or Lightheadedness
Physical Exam
-
General: No Apparent Distress, Comfortable and Conversant; Negative Pain, Fever, Chills or Sweats
HEENT: Normocephalic and Atraumatic
Respiratory: Clear to Auscultation and Non Labored Respirations; Negative Wheezes or Crackles
Cardiac: Regular Rhythm and S1/S2; Negative Murmur, Rub, Gallop, Tachycardic or Bradycardic
GI: Soft, Nontender, Nondistended and Normal Bowel Sounds
Musculoskeletal: No Cyanosis, No Edema and Normal Gait & Station
Skin: Warm and Dry
Neuro: Awake, AO x 3, No Motor Deficits, Tremors, Central Nerve's Intact, No Sensory Deficits and Other (No dysmetria in upper or lower extremities); Negative Slurred Speech or Facial Droop
Psych: Calm
[2025-06-10 07:00] VITALS: BP 124/75
[2025-06-10] MEDS: LOW STRENGTH ASPIRIN 81 MG PO (07:55)
[2025-06-10] MEDS: THERAGRAN 1 TABLET PO (07:55)
[2025-06-10] MEDS: PLAVIX 75 MG PO (07:55)
[2025-06-10] MEDS: VITAMIN D3 (cholecalciferol) 25 MCG PO (07:55)
[2025-06-10] MEDS: OSCAL CAL 500 500 MG PO (07:55)
[2025-06-10 08:20] LABS: Blood Urea Nitrogen 22 mg/dl (7-17); Calcium 8.6 mg/dl (8.4-10.2); Carbon Dioxide 26 mmol/L (22-30); Chloride 107 mmol/L (98-107); Estimated Creatinine Clearance 51 ml/min; Glucose 82 mg/dl (70-99); Potassium 4.2 mmol/L (3.5-5.1); Sodium 140 mmol/L (135-145); eGFR > 60.00
[2025-06-10 08:31] LABS: Hematocrit 38.1 % (37.0-47.0); Hemoglobin 11.8 g/dL (12.0-16.0); Mean Corp Hgb Conc. 31.0 g/dL (33.0-37.0); Mean Corpuscular Volume 65.7 fL (81.0-99.0); Platelet Count 231 10^3/uL (130-400); Red Cell Dist. Width 16.8 % (11.5-14.5)
[2025-06-10 11:00] VITALS: BP 114/60
--- NOTE | 2025-06-10 14:42 | W.PN.NEURO.1 ---
Today's Communication / Plan
-
patient with multiple areas of stroke left hemisphere, I reviewed MRI imaging, agree mostly left MCA with a small amount in left TELETYPE ADJUSTER territory
her left carotid moderate stenosis 50-69% but high risk features, soft plaque.
Question is this more likely symptomatic carotid or embolic? and does she need CEA or Eliquis?
Advise JERAD Thursday but if she wants to go then DAPT tentatively 90 days and Lipitor 40
ventricular dilation, h/o childhood hydrocephalus, h/o shunt - check xray skull/chest/abdomen, though this doesn't sound like NPH
restless legs on Sinemet
Neuro Assessment/Plan
Assessment
Abrupt onset of 2 episodes of right upper extremity weakness and sensory change associated with gait ataxia
Differential diagnosis includes transient ischemic attack/acute ischemic stroke most likely secondary to discovery of left internal carotid artery stenosis
Plan
Appreciate vascular surgery evaluation and treatment
Goal of dual antiplatelet therapy with aspirin and clopidogrel for total of 21 days then aspirin alone
Will follow as needed
Subjective/Objective
Subjective Data
Date of Service: June 10, 2025
wants to go home
subacute vertigo, denies progressive ataxia/cognitive/urinary changes as could be seen with NPH
Objective Data
Vital Signs
Temp Pulse Resp BP Pulse Ox
36.6 C 84 16 114/60 96
06/10/25 11:00 06/10/25 11:00 06/10/25 11:00 06/10/25 11:00 06/10/25 11:00
Lab Results
06/10/25 07:11
06/10/25 07:11
Sodium 140 mmol/L (135-145) 06/10/25 07:11
Potassium 4.2 mmol/L (3.5-5.1) 06/10/25 07:11
BUN 22 mg/dl (7-17) H 06/10/25 07:11
Glucose 82 mg/dl (70-99) 06/10/25 07:11
Calcium 8.6 mg/dl (8.4-10.2) 06/10/25 07:11
LDL Cholesterol, Calc 107 mg/dl 06/08/25 08:45
Vitamin B12 673 pg/ml (239-931) 06/08/25 08:45
Patient Allergies
cefaclor (From Ceclor) Allergy (Mild, Verified 04/23/25 08:58)
Rash
acetaminophen Allergy (Unknown, Verified 04/23/25 08:58)
'upset stomach'
metaxalone Allergy (Unknown, Verified 04/23/25 08:58)
Unknown
ropinirole (From Requip) Allergy (Verified 04/23/25 08:58)
Rash
tramadol Allergy (Verified 04/23/25 08:58)
Rash
Physical Exam
-
VFF, face symmetric, no pronator drift
[2025-06-10 15:05] VITALS: BP 130/86
[2025-06-10] MEDS: LIPITOR 40 MG PO (17:02)
[2025-06-10 19:48] VITALS: BP 94/66
[2025-06-10] MEDS: SINEMET 25-100 2 TABLET PO (20:00)
[2025-06-10] MEDS: KLONOPIN 1.5 MG PO (21:02)
[2025-06-10] MEDS: LYRICA 150 MG PO (21:02)
[2025-06-10 23:04] VITALS: BP 95/49
[2025-06-11] MEDS: SINEMET 25-100 1 TABLET PO (01:54)
[2025-06-11 03:41] VITALS: BP 96/60
[2025-06-11 07:00] VITALS: BP 113/65
[2025-06-11] MEDS: PLAVIX 75 MG PO (07:58)
[2025-06-11] MEDS: THERAGRAN 1 TABLET PO (07:58)
[2025-06-11] MEDS: LOW STRENGTH ASPIRIN 81 MG PO (07:58)
[2025-06-11] MEDS: VITAMIN D3 (cholecalciferol) 25 MCG PO (07:58)
[2025-06-11] MEDS: OSCAL CAL 500 500 MG PO (07:58)
[2025-06-11 09:49] LABS: Hematocrit 38.0 % (37.0-47.0); Hemoglobin 11.9 g/dL (12.0-16.0); Mean Corp Hgb Conc. 31.3 g/dL (33.0-37.0); Mean Corpuscular Volume 64.8 fL (81.0-99.0); Platelet Count 242 10^3/uL (130-400); Red Cell Dist. Width 16.8 % (11.5-14.5)
[2025-06-11 10:13] LABS: Blood Urea Nitrogen 21 mg/dl (7-17); Calcium 9.3 mg/dl (8.4-10.2); Carbon Dioxide 28 mmol/L (22-30); Chloride 108 mmol/L (98-107); Estimated Creatinine Clearance 51 ml/min; Glucose 139 mg/dl (70-99); Potassium 4.1 mmol/L (3.5-5.1); Sodium 140 mmol/L (135-145); eGFR > 60.00
--- NOTE | 2025-06-11 10:36 | W.PN.HOSP.TC ---
Addendum entered and electronically signed by Vamshi Chew MD 06/11/25 12:14:
Seen and examined by me independently in collaboration with the medical registrar.
Lab data reviewed.
Addendum as below :
No recurrence of neurological symptoms.
Tolerating DAPT and increased dose of statin.
For JERAD tomorrow and Holter as an outpatient.
Timing of CEA per vascular surgery.
Original Note:
Today's Communication/Plan
-
Continue DAPT and high intensity statin
JERAD scheduled for tomorrow
Possible surgical intervention of carotid stenosis, pending further evaluation by vascular surgery
Continue to monitor clinical status
Assessment / Plan
Assessment / Plan
Ms. Salcido is a 69-year-old female with past medical history to include hypertension, hyperlipidemia, migraines, insomnia, anemia/thalassemia, restless leg syndrome, essential tremor, and hydrocephaly at with shunt who presented to the
[facility] emergency department from home via EMS due to 2 episodes of right upper extremity weakness and paresthesia associated with gait ataxia. The patient's first episode occurred upon waking Thursday (06/06) morning, and it resolved
spontaneously the same day. The second episode occurred (06/08) morning, which also resolved spontaneously the same day. After the onset of the episode on , patient called EMS for further medical evaluation. The patient's lab work
on presentation was largely unremarkable, with the exception of triglycerides of 261 and a calcium of 10.3. Patient underwent various imaging studies, including CT head without contrast, bilateral carotid ultrasound, CT angiography of the head and
neck, and brain MRI. The CT head without contrast showed no acute intracranial abnormality. Carotid ultrasound showed less than 50% stenosis on the right and estimated stenosis of at least 50%, possibly greater than 70% on the left. CT
angiography of the head and neck showed a short segment of 50 to 69% proximal right CCA stenosis and approximately 50% stenosis of the proximal left ICA. Brain MRI showed multiple acute ischemic infarcts in the cortical mckay matter of the left
frontal lobe, left parietal lobe, and left occipital lobe. On hospital day #1, patient was started on dual antiplatelet therapy with aspirin 81 mg daily and clopidogrel 75 mg daily. Patient was also started on high intensity statin with
atorvastatin 40 mg every evening, which was increased dose from her home regimen of atorvastatin 10 mg every evening. Patient underwent an echocardiogram which showed an LVEF of 56% and no findings to suggest a cardioembolic etiology of stroke. A
JERAD is scheduled for tomorrow (06/12) to further elucidate a possible cardioembolic etiology of stroke. Vascular surgery follow-up evaluation for possible intervention (CEA) pending.
#CVA
#Carotid stenosis
Patient has had no neurologic deficits during her hospital course, though she did have 2 recent episodes of RUE weakness and paresthesia associated with gait ataxia prior to arrival
Continued DAPT with aspirin 81 mg and clopidogrel 75 mg for 21 days, followed by monotherapy with aspirin alone
Continue increased dose of atorvastatin 40 mg
JERAD planned for tomorrow for further elucidation of possible cardioembolic etiology of stroke
Imaging studies, per radiology:
- Head CT without contrast: No acute intracranial abnormality
- Carotid ultrasound: Right�small noncalcified plaque in proximal ICA. Left�calcified and noncalcified plaque within the bulb and proximal ICA, c/w estimated stenosis of at least 50%, possibly greater than 70%
- CTA head/neck: Right�short segment 50 to 69% proximal CCA stenosis. Left�Approximate 50% stenosis of the proximal left ICA.
- MRI brain: Multiple acute ischemic infarcts in the cortical mckay matter of the left frontal lobe, left parietal lobe, and left occipital lobe.
- Echocardiogram: LVEF 56%. No findings related to etiology of stroke.
Continue to monitor on telemetry with concern for atrial fibrillation given stroke findings. No abnormal findings to date.
Per vascular surgery, possible surgical intervention (CEA) given high risk features of left carotid artery. Follow-up vascular surgery recommendation pending.
Vascular surgery, neurology following
#Essential tremor
#Restless leg syndrome
Continue home regimen of carbidopa levodopa
#Anemia/thalassemia
Hemoglobin 11.9 today, stable from 11.8 yesterday
Monitor H&H, clinical status
Transfuse for hemoglobin <7
#Anxiety
#Insomnia
#Claustrophobia
Continue home regimen of clonazepam
Patient given lorazepam 1 mg prior to MRI for claustrophobia
#History of hydrocephaly
Per family, patient had a shunt placed as a child in the 1950s, though they are unsure if it is still in place
Imaging studies (skull x-ray, pelvis x-ray, chest x-ray) unrevealing as to presence of shunt
DVT PPx: SCDs
CODE STATUS: Full
Disposition: Per CM, home declined VN. Pending further evaluation.
Anticipated Discharge: 24 - 48 hours
Subjective/Interval History
-
Date of Service: June 11, 2025
Patient is seen at bedside on hospital day #4. Nursing reports NAEO. Patient reports she feels tired, otherwise no current complaints. Amenable to JERAD tomorrow.
Objective Data
-
Labs:
Laboratory Results
06/11/25
09:41
WBC 11.4 H
Hgb 11.9 L
Hct 38.0
Plt Count 242
Sodium 140
Potassium 4.1
Chloride 108 H
Carbon Dioxide 28
BUN 21 H
Creatinine 0.8
Glucose 139 H
Calcium 9.3
Vital Signs:
Vital Signs
Temp Pulse Resp BP Pulse Ox
97.4 F 83 14 113/65 96
06/11/25 07:00 06/11/25 07:00 06/11/25 07:00 06/11/25 07:00 06/11/25 07:00
I&O
06/10/25 06/11/25 06/12/25
06:59 06:59 06:59
Intake Total 1200 / 1200
Balance 1200 / 1200
Review of Systems
-
History Source: Patient
Constitutional: Denies Fever, Fatigue, Chills or Weakness
EENT: Reports No Symptoms Reported
Respiratory: Denies Cough, Trouble Breathing or Wheezing
Cardiac: Denies Chest Pain, Palpitations or Syncope
Abdomen/GI: Denies Abdominal Pain, Nausea, Vomiting or Diarrhea
Genitourinary: Denies Difficulty Voiding
Musculoskeletal: Denies Edema
Neuro: Denies Dizzy, Headache, Weakness, Numbness, Ataxia or Lightheadedness
Physical Exam
-
General: No Apparent Distress, Comfortable and Conversant
HEENT: Normocephalic and Atraumatic
Respiratory: Clear to Auscultation and Non Labored Respirations; Negative Wheezes or Crackles
Cardiac: Regular Rhythm and S1/S2; Negative Murmur, Rub, Gallop, Tachycardic or Bradycardic
GI: Soft, Nontender and Normal Bowel Sounds
Musculoskeletal: No Cyanosis and No Edema
Skin: Warm and Dry
Neuro: Awake, AO x 3, No Motor Deficits, Central Nerve's Intact, No Sensory Deficits and Other (No dysmetria)
Psych: Calm
--- NOTE | 2025-06-11 10:49 | CON.CAR ---
Consultation
Consultation Request
Date/Time Consultation Requested: 06/11/25 7:00AM
Date/Time Consultation Performed: 06/11/25 10:00AM
Requesting Provider: DR Sweet
Performing Provider: DR García
Reason for Consultation: CVA
Medical History
-
Chief Complaint: R arm weakness/dizziness
History of Present Illness:
69-year-old female with past medical history of hydrocephalus status post shunt, hyperlipidemia, hypertension, GERD, restless leg syndrome, and obesity presents with an acute stroke. Over the past several days she has had 2 episodes of right arm
weakness and difficulty with her gait. She also had some paresthesias with balance issues. The episodes resolved. Ultimately she presented to the emergency room for further evaluation. Her symptoms are back to baseline. She denies any chest
pains, shortness of breath, orthopnea, PND, edema or palpitations. She has no fevers or chills. She has no coughing or wheezing. She is not overly active. MRI of the brain revealed multiple acute ischemic infarcts in the left frontal lobe, left
parietal lobe, and posterior left occipital lobe. She also has normal pressure hydrocephalus by MRI. CTA of the neck revealed a 50 to 69% proximal right common carotid stenosis and 50% proximal left internal carotid stenosis. We were asked to
evaluate her for cardiac source of emboli.
Past Medical History
Past Medical History: GERD, HTN, Hypercholesterolemia and Other (Hydrocephalus history of shunt as a child, restless leg syndrome, osteoarthritis, thalassemia)
Past Surgical History: Brain (Shunt for hydrocephalus placed as child) and Orthopedic (Left total knee replacement August 2018, carpal tunnel 2019)
Social History
Tobacco: Non-Smoker
Alcohol: None
Drug: None
Living: With Family
Employment: Not Employed
Family History
Family History: Hypertension
Allergies / Home Medications
Allergy/AdvReac Type Severity Reaction Status Date / Time
cefaclor (From Ceclor) Allergy Mild Rash Verified 04/23/25 08:58
acetaminophen Allergy Unknown 'upset Verified 04/23/25 08:58
stomach'
metaxalone Allergy Unknown Unknown Verified 04/23/25 08:58
ropinirole (From Requip) Allergy Rash Verified 04/23/25 08:58
tramadol Allergy Rash Verified 04/23/25 08:58
�Medication �Instructions �Recorded �Confirmed �Type
clonazepam 1 mg tablet 1.5 mg PO HS Mental Health/Anxiety 11/15/22 06/08/25 History
atorvastatin 10 mg tablet 10 mg PO QPM High Cholesterol 09/08/23 06/08/25 History
carbidopa 25 mg-levodopa 100 mg 1 tab PO DAILY@0400 Neurological 09/08/23 06/08/25 History
tablet Condition
carbidopa 25 mg-levodopa 100 mg 2 tab PO HS Neurological Condition 09/08/23 06/08/25 History
tablet
pregabalin 75 mg capsule 150 mg PO HS Pain 09/08/23 06/08/25 History
calcium carbonate 500 mg PO DAILY Supplement 06/08/25 06/08/25 History
cholecalciferol (vitamin D3) 25 25 mcg PO DAILY Supplement 06/08/25 06/08/25 History
mcg (1,000 unit) tablet (Vitamin
D3)
therapeutic multivitamin 1 tab PO DAILY Supplement 06/08/25 06/08/25 History
magnesium 500 mg tablet 500 mg PO HS 06/10/25 06/10/25 History
Review of Systems
-
History Source: Patient
Constitutional: No Symptoms
EENT: No Symptoms
Respiratory: No Symptoms
Cardiac: No Symptoms
Abdomen/GI: No Symptoms
: No Symptoms
Musculoskeletal: No Symptoms
Skin: No Symptoms
Neurological: Dizzy, Weakness and Numbness
Endocrine: No Symptoms
Hematologic/Lymphatic: No Symptoms
Physical Exam
Vital Signs
Temp Pulse Resp BP Pulse Ox
97.4 F 83 14 113/65 96
06/11/25 07:00 06/11/25 07:00 06/11/25 07:00 06/11/25 07:00 06/11/25 07:00
Lab Results
06/11/25 09:41
06/11/25 09:41
Physical Exam
General: Well Developed and No Apparent Distress
HEENT: Anicteric and Moist Mucous Membranes
Respiratory: Clear and Non Labored Respirations
Cardiac: S1/S2 and Regular Rhythm
GI: Soft, Non Tender and Non Distended
Musculoskeletal: No Cyanosis and No Edema
Skin: Warm and Dry
Neuro: Awake
Psych: Calm
Impression / Plan
-
Assessment:
Acute CVA with multiple small infarcts in the left frontal, left parietal, and posterior left occipital lobe.
Bilateral 50 to 69% carotid stenosis
Hypertension
Hyperlipidemia
Normal pressure hydrocephalus with history of placed shunt.
Restless leg syndrome
Anemia/thalassemia
Insomnia/anxiety
Echo 06/09/25: EF 56%, no significant valve disease
PLan:
She presents with embolic strokes in multiple distributions of her brain. Telemetry with no significant atrial fibrillation.
I had a lengthy discussion with her and we agreed to proceed with transesophageal echo in a.m. to look for cardiac source of emboli.
She likely will need further heart monitoring as outpatient for 2 weeks.
Continue aspirin and Plavix for now
Blood pressure is stable. Would allow some permissive hypertension if possible.
Continue atorvastatin 40 mg daily. LDL is 107. Goal LDL should be 55
Data Reviewed
-
EKG: Report Reviewed by me
Ultrasound: Report Reviewed by me
Medical Tests (Nuc Med, Echo etc): Report Reviewed by me
Labs: Labs Reviewed by me
Old Records: Reviewed
[2025-06-11 11:00] VITALS: BP 127/77
[2025-06-11 15:00] VITALS: BP 97/60
[2025-06-11] MEDS: LIPITOR 40 MG PO (16:57)
[2025-06-11 19:36] VITALS: BP 127/91
[2025-06-11] MEDS: SINEMET 25-100 2 TABLET PO (20:00)
[2025-06-11] MEDS: LYRICA 150 MG PO (21:01)
[2025-06-11] MEDS: KLONOPIN 1.5 MG PO (21:01)
[2025-06-11 23:01] VITALS: BP 90/53
[2025-06-12] VITALS (8 sets, daily range): BP systolic 86–135; BP diastolic 45–85; PULSE 87; O2SAT 95
[2025-06-12] MEDS: SINEMET 25-100 1 TABLET PO (01:16)
[2025-06-12 06:52] LABS: Hematocrit 38.2 % (37.0-47.0); Hemoglobin 11.9 g/dL (12.0-16.0); Mean Corp Hgb Conc. 31.2 g/dL (33.0-37.0); Mean Corpuscular Volume 65.3 fL (81.0-99.0); Platelet Count 231 10^3/uL (130-400); Red Cell Dist. Width 17.2 % (11.5-14.5)
[2025-06-12 07:07] LABS: Blood Urea Nitrogen 20 mg/dl (7-17); Calcium 8.7 mg/dl (8.4-10.2); Carbon Dioxide 23 mmol/L (22-30); Chloride 110 mmol/L (98-107); Estimated Creatinine Clearance 58 ml/min; Glucose 83 mg/dl (70-99); Potassium 4.5 mmol/L (3.5-5.1); Sodium 139 mmol/L (135-145); eGFR > 60.00
[2025-06-12] MEDS: PLAVIX 75 MG PO (07:31)
[2025-06-12] MEDS: VITAMIN D3 (cholecalciferol) 25 MCG PO (07:32)
[2025-06-12] MEDS: OSCAL CAL 500 500 MG PO (07:32)
[2025-06-12] MEDS: THERAGRAN 1 TABLET PO (07:32)
[2025-06-12] MEDS: LOW STRENGTH ASPIRIN 81 MG PO (07:32)
--- NOTE | 2025-06-12 10:13 | W.PN.CARDCBS ---
Addendum entered and electronically signed by Orlin Duran MD 06/12/25 17:49:
69-year-old woman admitted with right arm weakness and ataxia in the setting of what is felt to be acute stroke with MRI revealing lesions of the left frontal, left parietal and posterior left occipital lobe. MRI suggested hydrocephalus, CTA with
50 to 69% proximal right common carotid stenosis and 50% proximal left internal carotid stenosis
PMH: GERD, hypertension, hypercholesterolemia head shunt for hydrocephalus as a child, thalassemia trait, osteoarthritis and restless leg
PSH: Remote shunt, left total knee, carpal tunnel
Current medications: Clopidogrel 75 mg daily which is new, aspirin which is new, atorvastatin 40 mg a day, Os-Tom, Sinemet, Klonopin, Lyrica, mag oxide
112/85, pulse 86, respirations 18, afebrile, patient seen after transesophageal echo, still somewhat somnolent but conversant, no complaints, head neck exam unremarkable, lungs are clear, regular rate and rhythm, no murmurs, abdomen benign,
extremities without clubbing cyanosis or edema, limited neuroexam, nonfocal
Cerebrovascular CTA 50% proximal left internal carotid, 55 to 69% proximal right common carotid
Echo: EF 56%, normal atria and RV, no significant valve abnormality
ECG sinus rhythm, nonspecific ST abnormality
White count 11.6, hemoglobin 11.9, MCV 65, platelets 231, BUN/creatinine 20 and 0.7, potassium 4.5
JERAD no significant abnormality, continue aspirin and Plavix, if JERAD negative will need outpatient monitoring
Impression:
Left-sided hemispheric strokes, frontal, parietal and posterior left occipital with moderate bilateral carotid stenosis and right-sided weakness
Hypertension
Hyperlipidemia
Hydrocephalus as child with prior KNUCKLER shunt
Thalassemia trait
Plan:
She presents with left hemispheric strokes that appear embolic but without significant abnormality on transesophageal echo. Presently diagnosis is embolic stroke of uncertain source (ESUS)
Unclear whether CVA could relate to to soft left internal carotid artery plaque. Anatomically, distribution of stroke is not entirely consistent with this. In the absence of vascular surgical intervention, I favor 3 weeks of DAPT followed by a
single agent, with ambulatory telemetry monitoring to exclude atrial fibrillation as a potential etiology for stroke. If monitoring is negative, consideration of LINQ implant.
In addition, optimization of blood pressure and cholesterol is indicated.
We will arrange for an outpatient nurse monitoring and appropriate cardiac follow-up.
Original Note:
Today's Communication / Plan
-
JERAD without evidence of cardioembolic source of emboli
No PFO on bubble study
Vascular surgery following for carotid disease
Impression / Plan
-
PCP: Dr. Cardoso
Assessment:
Admitted with new onset right-sided weakness 06/08/2025
Acute CVA with multiple small infarcts in the left frontal, left parietal, and posterior left occipital lobe.
Bilateral 50 to 69% carotid stenosis
Hypertension
Hyperlipidemia
Normal pressure hydrocephalus with history of infant placed shunt.
Restless leg syndrome
Anemia/thalassemia
Insomnia/anxiety
Echo 06/09/25: EF 56%, no significant valve disease
JERAD 06/12/2025: EF 65 to 70%, mild to moderate aortic regurgitation, no thrombus detected in the STEFF, normal interatrial septum without evidence of shunt by color-flow Doppler, negative bubble study with and without simulated Valsalva
Plan:
Patient came to the ER with right-sided weakness on 06/08/2025 and MRI of brain showed embolic strokes in multiple distributions including left frontal, left parietal and posterior left occipital lobe.
-JERAD on 06/12/2025 showed no evidence of cardioembolic source of emboli
-No evidence of PFO on bubble study
-Vascular surgery following for carotid disease
-Patient is new to aspirin and Plavix this admission
-LDL 107 and outpatient dose of atorvastatin was increased to 40 mg daily
-Will arrange for cardiology follow-up
-Diet can be resumed, order placed by me 06/12/25
Progress Note - Product Representative
Subjective
Date of Service: June 12, 2025
Feels well, no pain
Objective
Labs:
06/12/25 05:48
06/12/25 05:48
Labs
Hgb 11.9 g/dL (12.0-16.0) L 06/12/25 05:48
Hct 38.2 % (37.0-47.0) 06/12/25 05:48
Plt Count 231 10^3/uL (130-400) 06/12/25 05:48
Sodium 139 mmol/L (135-145) 06/12/25 05:48
Potassium 4.5 mmol/L (3.5-5.1) 06/12/25 05:48
BUN 20 mg/dl (7-17) H 06/12/25 05:48
Creatinine 0.7 mg/dL (0.6-1.0) 06/12/25 05:48
Glucose 83 mg/dl (70-99) 06/12/25 05:48
Vital Signs and I&O:
Vital Signs
Temp Pulse Resp BP Pulse Ox
97.9 F 86 18 112/85 98
06/12/25 07:55 06/12/25 07:55 06/12/25 07:55 06/12/25 07:55 06/12/25 07:55
Vital Signs
Temp Pulse Resp BP Pulse Ox
97.9 F 86 18 112/85 98
06/12/25 07:55 06/12/25 07:55 06/12/25 07:55 06/12/25 07:55 06/12/25 07:55
Intake & Output
06/10/25 06/11/25 06/12/25 06/13/25
06:59 06:59 06:59 06:59
Intake Total 1200 / 1200 720 / 720
Balance 1200 / 1200 720 / 720
Physical Exam
Physical Exam
GEN: AAOx3
LUNGS: RA
CV: SR on tele
--- NOTE | 2025-06-12 16:05 | W.PN.HOSP.TC ---
Addendum entered and electronically signed by Carlos Hayward MD 06/13/25 16:04:
Acute cva
-Left MCA/Left RADIOLOGICAL ENGINEER with moderate stenosis of 50-69% with hgh risk feature/soft plaque
-Multiple small cvas in the frontal parietal occipatal lobe, ?NPH
-Neuro questioning if this is more carotid stenosis -symptomatic vs embolic
--If more carotid stenosis may need CEA , vascular surgery following
--If more Embolic may need eliquis, CAIO, cards consult, will need finish production manager
Update
-Caio without evidence of cardioembolic source, no PFO on bubble
Currently discussing with cardiology neurology and vascular surgery what is the best next step.
-Carotid stenosis with ICA plaque does not explain posterior circulation infarct. This would be more suggestive to simultaneous problems carotid plaque and embolic source per vascular surgery
-Currently weighing options to treat medically with DAPT and ambulatory monitor.
--Per neuro note (06/10) rec to complete 90 days of DAPT
Restless leg syndrome
Continue carbidopa levodopa
Anemia
Hemoglobin stable
History of hydrocephaly
Imaging study aches per neurology swallow x-ray pelvis x-ray chest x-ray unrevealing as to presence of shunt
Original Note:
Today's Communication/Plan
-
Continue DAPT and high intensity statin.
CAIO results pending
Communicate CAIO results to neurology and vascular surgery once received.
Possible surgical intervention of carotid stenosis, pending further evaluation by vascular surgery
Continue to monitor clinical status
Assessment / Plan
Assessment / Plan
Ms. Salcido is a 69-year-old female with past medical history to include hypertension, hyperlipidemia, migraines, insomnia, anemia/thalassemia, restless leg syndrome, essential tremor, and hydrocephaly at with shunt who presented to the
[facility] emergency department from home via EMS due to 2 episodes of right upper extremity weakness and paresthesia associated with gait ataxia. The patient's first episode occurred upon waking Thursday (06/06) morning, and it resolved
spontaneously the same day. The second episode occurred (06/08) morning, which also resolved spontaneously the same day. After the onset of the episode on , patient called EMS for further medical evaluation. The patient's lab work
on presentation was largely unremarkable, with the exception of triglycerides of 261 and a calcium of 10.3. Patient underwent various imaging studies, including CT head without contrast, bilateral carotid ultrasound, CT angiography of the head and
neck, and brain MRI. The CT head without contrast showed no acute intracranial abnormality. Carotid ultrasound showed less than 50% stenosis on the right and estimated stenosis of at least 50%, possibly greater than 70% on the left. CT
angiography of the head and neck showed a short segment of 50 to 69% proximal right CCA stenosis and approximately 50% stenosis of the proximal left ICA. Brain MRI showed multiple acute ischemic infarcts in the cortical mckay matter of the left
frontal lobe, left parietal lobe, and left occipital lobe. On hospital day #1, patient was started on dual antiplatelet therapy with aspirin 81 mg daily and clopidogrel 75 mg daily. Patient was also started on high intensity statin with
atorvastatin 40 mg every evening, which was increased dose from her home regimen of atorvastatin 10 mg every evening. Patient underwent an echocardiogram which showed an LVEF of 56% and no findings to suggest a cardioembolic etiology of stroke.
Patient underwent TTE (06/12/2025) to further elucidate a possible cardioembolic etiology of stroke, results pending. Vascular surgery follow-up evaluation for possible intervention (CEA) pending.
#CVA
#Carotid stenosis
Patient has had no neurologic deficits during her hospital course, though she did have 2 recent episodes of RUE weakness and paresthesia associated with gait ataxia prior to arrival
Continued DAPT with aspirin 81 mg and clopidogrel 75 mg for 21 days, followed by monotherapy with aspirin alone
Continue increased dose of atorvastatin 40 mg
CAIO done (06/12/2025) for further elucidation of possible cardioembolic etiology of stroke, results pending
Imaging studies, per radiology:
- Head CT without contrast: No acute intracranial abnormality
- Carotid ultrasound: Right�small noncalcified plaque in proximal ICA. Left�calcified and noncalcified plaque within the bulb and proximal ICA, c/w estimated stenosis of at least 50%, possibly greater than 70%
- CTA head/neck: Right�short segment 50 to 69% proximal CCA stenosis. Left�Approximate 50% stenosis of the proximal left ICA.
- MRI brain: Multiple acute ischemic infarcts in the cortical mckay matter of the left frontal lobe, left parietal lobe, and left occipital lobe.
- Echocardiogram: LVEF 56%. No findings related to etiology of stroke.
Continue to monitor on telemetry with concern for atrial fibrillation given stroke findings. No abnormal findings to date.
Per vascular surgery, possible surgical intervention (CEA) given high risk features of left carotid artery. Follow-up vascular surgery recommendation pending.
Vascular surgery, neurology following
#Leukocytosis
WBC today is 11.6, stable from 11.4 yesterday
patient is asymptomatic. (-) fever
possibly due to inflammation secondary to stroke
#Essential tremor
#Restless leg syndrome
Continue home regimen of carbidopa levodopa
#Anemia/thalassemia
Hemoglobin 11.9 today, stable from 11.9 yesterday
Monitor H&H, clinical status
Transfuse for hemoglobin <7
#Anxiety
#Insomnia
#Claustrophobia
Continue home regimen of clonazepam
Patient given lorazepam 1 mg prior to MRI for claustrophobia
#History of hydrocephaly
Per family, patient had a shunt placed as a child in the 1950s, though they are unsure if it is still in place
Imaging studies (skull x-ray, pelvis x-ray, chest x-ray) unrevealing as to presence of shunt
DVT PPx: SCDs
CODE STATUS: Full
Disposition: Per CM, home declined VN. Pending further evaluation.
Anticipated Discharge: 24 - 48 hours
Subjective/Interval History
-
Date of Service: June 12, 2025
Patient is seen at bedside on hospital day #5. Nursing reports NAEO. Patient has no current complaints. She would like to discuss her planned stay at the hospital based off her recent imaging results.
Objective Data
-
Labs:
Laboratory Results
06/12/25
05:48
WBC 11.6 H
Hgb 11.9 L
Hct 38.2
Plt Count 231
Sodium 139
Potassium 4.5
Chloride 110 H
Carbon Dioxide 23
BUN 20 H
Creatinine 0.7
Glucose 83
Calcium 8.7
Vital Signs:
Vital Signs
Temp Pulse Resp BP Pulse Ox
97.9 F 104 18 135/74 95
06/12/25 14:06 06/12/25 14:06 06/12/25 14:06 06/12/25 14:06 06/12/25 14:06
I&O
06/11/25 06/12/25 06/13/25
06:59 06:59 06:59
Intake Total 1200 / 1200 720 / 720
Balance 1200 / 1200 720 / 720
Review of Systems
-
History Source: Patient
Constitutional: Reports No Symptoms
EENT: Reports No Symptoms Reported
Respiratory: Reports Other (Denies cough, hemoptysis and trouble breathing)
Cardiac: Reports No Symptoms
Abdomen/GI: Reports No Symptoms
Neuro: Reports Other (Denies dizziness, headache, and weakness)
Hematologic / Lymphatic: Reports Other (Denies bleeding)
Physical Exam
-
General: Well Developed, Well Nourished, Comfortable and Conversant
HEENT: Normocephalic, Atraumatic and Anicteric
Respiratory: Clear to Auscultation and Non Labored Respirations
Cardiac: Regular Rhythm and S1/S2
GI: Soft and Normal Bowel Sounds
Rectal: Deferred by Provider
Musculoskeletal: No Cyanosis
Skin: Warm and Normal Turgor
Neuro: AO x 3, No Motor Deficits and No Sensory Deficits
Psych: Calm
[2025-06-12] MEDS: LIPITOR 40 MG PO (17:33)
--- NOTE | 2025-06-12 18:08 | PTCARENOTE ---
Pt had JERAD this morning - no evidence of blood blots. Episode of chills after procedure that resolved - never spike fever. NIH remained 0. Pt alert/oriented/ambulatory. Pt offers no complaints at this time.
[2025-06-12] MEDS: LYRICA 150 MG PO ×2 (20:45→20:50)
[2025-06-12] MEDS: KLONOPIN 1.5 MG PO (20:46)
[2025-06-12] MEDS: SINEMET 25-100 2 TABLET PO (20:49)
[2025-06-13] MEDS: SINEMET 25-100 1 TABLET PO (02:02)
[2025-06-13 07:00] VITALS: BP 95/60
[2025-06-13 08:00] LABS: Hematocrit 35.9 % (37.0-47.0); Hemoglobin 11.3 g/dL (12.0-16.0); Mean Corp Hgb Conc. 31.5 g/dL (33.0-37.0); Mean Corpuscular Volume 65.0 fL (81.0-99.0); Nucleated Red Blood Cells % 0 %; Platelet Count 209 10^3/uL (130-400); Red Cell Dist. Width 16.6 % (11.5-14.5)
[2025-06-13 08:03] LABS: Blood Urea Nitrogen 17 mg/dl (7-17); Calcium 8.2 mg/dl (8.4-10.2); Carbon Dioxide 24 mmol/L (22-30); Chloride 110 mmol/L (98-107); Estimated Creatinine Clearance 51 ml/min; Glucose 74 mg/dl (70-99); Potassium 4.3 mmol/L (3.5-5.1); Sodium 138 mmol/L (135-145); eGFR > 60.00
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
[2025-06-13] MEDS: PLAVIX 75 MG PO (08:16)
[2025-06-13] MEDS: OSCAL CAL 500 500 MG PO (08:16)
[2025-06-13] MEDS: THERAGRAN 1 TABLET PO (08:16)
[2025-06-13] MEDS: VITAMIN D3 (cholecalciferol) 25 MCG PO (08:16)
[2025-06-13] MEDS: LOW STRENGTH ASPIRIN 81 MG PO (08:16)
[2025-06-13 08:25] VITALS: BP 108/70
[2025-06-13 12:07] VITALS: BP 114/71
--- NOTE | 2025-06-13 12:52 | PTOTSP ---
PATIENT ABLE TO MOBILIZE INDEPENDENTLY ON LEVEL SURFACES WELL ELEVATIONS REQUIRING NO FURTHER ACUTE CARE SKILLED P.T. AT THIS TIME. WILL DISCHARGE FROM P.T. SERVICES.
[2025-06-13 15:00] VITALS: BP 98/60
--- NOTE | 2025-06-13 15:00 | W.PN.HOSP.TC ---
Addendum entered and electronically signed by Carlos Hayward MD 06/14/25 14:28:
Acute cva
-Left MCA/Left KNITTING DEMONSTRATOR with moderate stenosis of 50-69% with hgh risk feature/soft plaque
-Multiple small cvas in the frontal parietal occipatal lobe, ?NPH
-Neuro questioning if this is more carotid stenosis -symptomatic vs embolic
-Therfore, CAIO completed
--Caio without evidence of cardioembolic source, no PFO on bubble
-Carotid stenosis with ICA plaque does not explain posterior circulation infarct. Unlikely a simultaneous process carotid plaque and embolic source per vascular surgery
-Currently weighing options to treat medically with DAPT and ambulatory monitor.
--Per neuro note (06/10) rec to complete 90 days of DAPT though cardiology rec 21days of DAPT. As this was a CVA, reached out to [facility] neurology - Dr. Keyes (resident physician reached out via TT) rec to follow previous neurologgy recommendation
Restless leg syndrome
Continue carbidopa levodopa
Anemia
Hemoglobin stable
History of hydrocephaly
Imaging study aches per neurology skull x-ray pelvis x-ray chest x-ray unrevealing as to presence of shunt
More than 30 minutes spent in discharge including
Final examination of the patient
Summarizing hospital stay
Instructions for continuing care to all relevant caregivers
Preparation of discharge records, prescriptions, and referral forms
Total time spent (in minutes): 32
Original Note:
Today's Communication/Plan
-
Continue DAPT and high intensity statin.
MRI and Xray results communicated to patient.
CAIO results communicated to neurology and vascular surgery.
Surgical intervention for vascular surgery deferred. Patient will be followed as outpatient.
Vascular surgery, Neurology, and Cardiovascular okay for discharge and follow up as outpatient.
Continue DAPT for 90 days and Atorvastatin 40 mg.
Discharge patient.
Assessment / Plan
Assessment / Plan
Ms. Salcido is a 69-year-old female with past medical history to include hypertension, hyperlipidemia, migraines, insomnia, anemia/thalassemia, restless leg syndrome, essential tremor, and hydrocephaly at with shunt who presented to the
[facility] emergency department from home via EMS due to 2 episodes of right upper extremity weakness and paresthesia associated with gait ataxia. The patient's first episode occurred upon waking Thursday (06/06) morning, and it resolved
spontaneously the same day. The second episode occurred (06/08) morning, which also resolved spontaneously the same day. After the onset of the episode on , patient called EMS for further medical evaluation. The patient's lab work
on presentation was largely unremarkable, with the exception of triglycerides of 261 and a calcium of 10.3. Patient underwent various imaging studies, including CT head without contrast, bilateral carotid ultrasound, CT angiography of the head and
neck, and brain MRI. The CT head without contrast showed no acute intracranial abnormality. Carotid ultrasound showed less than 50% stenosis on the right and estimated stenosis of at least 50%, possibly greater than 70% on the left. CT
angiography of the head and neck showed a short segment of 50 to 69% proximal right CCA stenosis and approximately 50% stenosis of the proximal left ICA. Brain MRI showed multiple acute ischemic infarcts in the cortical mckay matter of the left
frontal lobe, left parietal lobe, and left occipital lobe. On hospital day #1, patient was started on dual antiplatelet therapy with aspirin 81 mg daily and clopidogrel 75 mg daily. Patient was also started on high intensity statin with
atorvastatin 40 mg every evening, which was increased dose from her home regimen of atorvastatin 10 mg every evening. Patient underwent an echocardiogram which showed an LVEF of 56% and no findings to suggest a cardioembolic etiology of stroke.
Patient underwent TTE (06/12/2025) to further elucidate a possible cardioembolic etiology of stroke, results pending. Vascular surgery follow-up evaluation for possible intervention (CEA) pending.
#CVA
#Carotid stenosis
Patient has had no neurologic deficits during her hospital course, though she did have 2 recent episodes of RUE weakness and paresthesia associated with gait ataxia prior to arrival
Vascular surgery consulted and agreed to defer surgery and follow patient as outpatient for follow up.
CAM Monitor attached with care instructions, to be reevaluated after 14 days.
Follow up with cardiology as outpatient.
Continue DAPT therapy with aspirin 81 mg and clopidogrel 75 mg for 90 days as outpatient.
Continue Atorvastatin 40 mg as outpatient.
Follow up with Neurology as outpatient.
CAIO done (06/12/2025) for further elucidation of possible cardioembolic etiology of stroke showed normal-appearing LV size and function with no obvious regional wall motion abnormalities.LVEF is 60-65% by visual estimation. No obvious LVH.Normal
appearing RV size and function.Mild to moderate mitral stenosis.Compared to prior from June 29, 2024, no significant change.
Imaging studies, per radiology:
- Head CT without contrast: No acute intracranial abnormality
- Carotid ultrasound: Right�small noncalcified plaque in proximal ICA. Left�calcified and noncalcified plaque within the bulb and proximal ICA, c/w estimated stenosis of at least 50%, possibly greater than 70%
- CTA head/neck: Right�short segment 50 to 69% proximal CCA stenosis. Left�Approximate 50% stenosis of the proximal left ICA.
- MRI brain: Multiple acute ischemic infarcts in the cortical mckay matter of the left frontal lobe, left parietal lobe, and left occipital lobe.
- Echocardiogram: LVEF 56%. No findings related to etiology of stroke.
Vascular surgery, neurology following
#Leukocytosis
WBC today is 18.2, moderate increase from 11.6 yesterday
patient is asymptomatic. (-) fever, vital signs stable, no sign of infection from previous work up.
possibly due to inflammation secondary to stroke
follow up with outpatient PCP
#Essential tremor
#Restless leg syndrome
Continue home regimen of carbidopa levodopa
#Anemia/thalassemia
Hemoglobin 11.3 today, stable from 11.9 yesterday
Monitor H&H, clinical status
Transfuse for hemoglobin <7
#Anxiety
#Insomnia
#Claustrophobia
Continue home regimen of clonazepam
#History of hydrocephaly
Per family, patient had a shunt placed as a child in the 1949s, though they are unsure if it is still in place
Imaging studies (skull x-ray, pelvis x-ray, chest x-ray) unrevealing as to presence of shunt.
Follow up with Neurology as outpatient.
DVT PPx: SCDs
CODE STATUS: Full
Disposition: Per CM, home declined VN. Pending further evaluation.
Patient for discharge.
Anticipated Discharge: Today
Subjective/Interval History
-
Date of Service: June 13, 2025
Patient noted that she felt fine and had no complaints. She asked MRI and X ray results to be explained to her.
Objective Data
-
Labs:
Laboratory Results
06/13/25
06:03
WBC 18.2 H
Hgb 11.3 L
Hct 35.9 L
Plt Count 209
Sodium 138
Potassium 4.3
Chloride 110 H
Carbon Dioxide 24
BUN 17
Creatinine 0.8
Glucose 74
Calcium 8.2 L
Vital Signs:
Vital Signs
Temp Pulse Resp BP Pulse Ox
97.8 F 98 18 108/70 95
06/13/25 07:00 06/13/25 08:25 06/13/25 08:25 06/13/25 08:25 06/13/25 08:00
I&O
06/12/25 06/13/25 06/14/25
06:59 06:59 06:59
Intake Total 720 / 720 720 / 720
Balance 720 / 720 720 / 720
Review of Systems
-
History Source: Patient
Constitutional: Reports No Symptoms
EENT: Reports No Symptoms Reported
Respiratory: Reports No Symptoms
Cardiac: Reports No Symptoms
Abdomen/GI: Reports Other (No abdominal pain, diarrhea, vomiting, nausea)
Genitourinary: Reports Other (No dysuria, frequency, or flank pain)
Musculoskeletal: Reports Other (No edema, muscle weakness)
Skin: Reports No Symptoms
Neuro: Reports No Symptoms
Hematologic / Lymphatic: Reports Other (No bleeding)
Physical Exam
-
General: Well Developed, Well Nourished, Comfortable and Conversant
HEENT: Normocephalic and Atraumatic
Respiratory: Clear to Auscultation and Non Labored Respirations
Cardiac: Regular Rhythm and S1/S2
GI: Soft, Nontender and Normal Bowel Sounds
Rectal: Deferred by Provider
Genito-urinary: No Costovertebral Tender
Musculoskeletal: No Cyanosis and No Edema
Skin: Warm
Neuro: AO x 3, No Motor Deficits and No Sensory Deficits
Psych: Calm
--- NOTE | 2025-06-13 15:41 | W.PN.UPDATE ---
Update Note
Progress Note Update
Spoke with patient at bedside this afternoon with Dr. Blanco. Patient agreeable to plan of medical management. Will have close follow-up in the office. Follow-up appointment added to chart. Please call with questions or concerns
--- NOTE | 2025-06-13 16:24 | CM ---
Spoke with patient in room. She said she needed xray results from weekend . Resident notified of request from patient.
MD entered order for discharge.
Pt had CAM monitor placed by cardiology.
Pt said her brother Guillermo will drive her home.
Offered VN she declined need.
Pt remains under observation.
PLAN Home no needs
[2025-06-13] MEDS: LIPITOR 40 MG PO (17:21)
--- NOTE | 2025-06-13 21:44 | W.DCSUMMARY ---
Discharge Summary
Discharge Data
Date of Admission: 06/11/25
Date of Discharge: 06/13/25
-
Pending Results: No
Hospital Course
Discharging Physician : Yesica Obregon
Disposition : Home
Primary care physician : Dr. Carlos Hayward
Principal Discharge diagnosis: CVA; carotid stenosis
Chronic Discharge diagnosis: Hypertension; hyperlipidemia; migraines; anemia; essential tremor; restless leg syndrome; anxiety; insomnia; hydrocephaly
Hospital Course :
Ms. Salcido is a 69-year-old female with past medical history to include hypertension, hyperlipidemia, migraines, insomnia, anemia/thalassemia, restless leg syndrome, essential tremor, and hydrocephaly at with shunt who presented to the
[facility] emergency department from home via EMS due to 2 episodes of right upper extremity weakness and paresthesia associated with gait ataxia. The patient's first episode occurred upon waking Thursday (06/06) morning, and it resolved
spontaneously the same day. The second episode occurred (06/08) morning, which also resolved spontaneously the same day. After the onset of the episode on , patient called EMS for further medical evaluation. The patient's lab work on
presentation was largely unremarkable, with the exception of triglycerides of 261 and a calcium of 10.3. Patient underwent various imaging studies, including CT head without contrast, bilateral carotid ultrasound, CT angiography of the head and
neck, and brain MRI.
The CT head without contrast showed no acute intracranial abnormality. Carotid ultrasound showed less than 50% stenosis on the right and estimated stenosis of at least 50%, possibly greater than 70% on the left. CT angiography of the head and neck
showed a short segment of 50 to 69% proximal right CCA stenosis and approximately 50% stenosis of the proximal left ICA. Brain MRI showed multiple acute ischemic infarcts in the cortical mckay matter of the left frontal lobe, left parietal lobe, and
left occipital lobe.� Patient was started on dual antiplatelet therapy with aspirin 81 mg daily and clopidogrel 75 mg daily.� The patient will tentatively continue atorvastatin 40 mg every evening. A vascular surgery consult was obtained for
consideration of a carotid endarterectomy (CEA). Skull and pelvis X-rays were obtained and found to be unremarkable; the shunt was not visualized. Chest X-ray demonstrated no acute cardiopulmonary process. A steady increase in WBC count was observed
and is attributed to an inflammatory response following the recent stroke. The patient remains afebrile, with stable vital signs and no evidence of an infectious source on current workup. Hemoglobin levels showed a downward trend and were closely
monitored. A transesophageal echocardiogram (JERAD) was performed and did not reveal any cardiac source of embolus. Based on these findings, vascular surgery deferred the CEA and recommended continuing with medical management and outpatient follow-up.
Cardiology also evaluated the patient and agreed with outpatient management, including ambulatory cardiac monitoring (CAM) for 14 days to evaluate for possible paroxysmal atrial fibrillation as a cause of embolic stroke. Dual antiplatelet therapy
will be continued for 90 days, along with atorvastatin 40 mg daily. The patient was advised to follow up with Neurology and Cardiology as an outpatient. The patient is in agreement with the plan and has been provided with discharge instructions.
Important imaging findings :
Transesophageal echocardiogram (06/12/2025)-
Normal biventricular size and systolic function without regional wall motion abnormality. Estimated LVEF 65-70%.
Mild/moderate aortic regurgitation.
No thrombus detected in the left atrial appendage.
Normal interatrial septum. No evidence of shunt by color flow Doppler. Negative bubble study with and without simulated Valsalva.
No cardiac source of embolus identified.
Skull X Ray: No depressed calvarial fracture. Visualized paranasal sinuses and mastoid air cells are grossly clear. Soft tissues are grossly unremarkable.
Chest X Ray: No overt acute displaced pelvic bone fractures or dislocation identified on limited frontal view. Soft tissues are grossly unremarkable. No definite catheter/shunt tubing identified.
Pelvic X Ray: Lungs: No convincing focal infiltrates. No significant pleural effusions. No visualized pneumothorax.
Heart: Cardiac and mediastinal contours are unremarkable. No overt pulmonary vascular congestion.
Osseous structures: No acute abnormalities.
MRI Brain (06/09/2025)-IMPRESSION:
MULTIPLE ACUTE ISCHEMIC INFARCTS in the cortical mckay matter of the superolateral LEFT FRONTAL LOBE, superior and posterior LEFT PARIETAL LOBE, and posterior LEFT OCCIPITAL LOBE.
Moderate to severe distention of the bodies and occipital horns of the lateral ventricles and severe distention of the 3rd ventricle. Diagnostic possibilities are (1) ex vacuo dilatation secondary to moderate bilateral frontal and parietal lobe
volume loss, (2) cerebral aqueduct stenosis, or (3) normal pressure communicating hydrocephalus.
Mild to moderate white matter leukoaraiosis in the periventricular white matter.
Mild multilevel upper cervical spinal cord compression.
head/neck (06/08/2025)-IMPRESSION:
Findings suggesting normal pressure hydrocephalus. Stable. Clinical correlation recommended
No acute vascular pathology.
Short segment of 50-69% proximal right common carotid artery stenosis.
Approximate 50% stenosis of the proximal left internal carotid artery
Multilevel degenerative disc disease.
Less than grade 1 anterolisthesis of C3 on C4
Carotid ultrasound (06/04/2025)-IMPRESSION:
1. Right carotid: Small amount of noncalcified plaque within the proximal ICA. Any stenosis is less than
Approximate 50% stenosis of the proximal left internal carotid artery
Multilevel degenerative disc disease.
Less than grade 1 anterolisthesis of C3 on C4
Carotid ultrasound (06/04/2025)-IMPRESSION:
1. Right carotid: Small amount of noncalcified plaque within the proximal ICA. Any stenosis is less than
50% based upon velocity criteria.
Left carotid: Calcified and noncalcified plaque within the bulb and proximal ICA with elevated peak systolic velocity 220 cm/s. End-diastolic velocity of 83 cm/s. ICA/CCA ratio 4.17. Findings consistent with estimated stenosis of at least 50%,
possibly greater than 70%.
Antegrade flow within the vertebral arteries.
CT head (06/08/2025 -IMPRESSION:
1. No acute intracranial abnormality noted.
2. Minimal periventricular small vessel ischemic disease.. Stable
Procedure findings: N/A
Discharge Plan
-
Patient Disposition: Home (Routine Discharge)
Discharge Diagnosis/Procedures: Carotid Stenosis, Anemia, Essential Tremor, Restless Leg Syndrome, Anxiety, Insomnia, History of Hydrocephaly
Condition: Fair
Diet: Low Cholesterol
Activity: No restrictions
Driving Restrictions: As prior to admission
Bathing Restrictions: None
Others Tests: - A 14-day heart monitor is being placed prior to your discharge from the hospital. You can shower with the monitor in place, but water should not directly spray onto the monitor. The monitor should not be submerged in water so
please avoid bathtubs, hot tubs, pools etc. When your monitoring period is finished you can remove the monitor and place it in the postage paid box to return to the cardiology office for evaluation. We will call you with the monitor results.
- If the monitor falls off you can try and stick it back on, if it will not stay in place please call the office at [phone] and press option 5 for the device/monitoring services line. Options would include mailing a new monitor to you or you
can come to the office to have a new monitor placed.
Referrals:
Alexys Blanco III, MD [Active, Vascular Surgery] - 07/12/25 3:45 pm
Referral Note: Vascular surgery office follow up
Attila Cardoso MD [Family Provider, Internal Medicine]
Juan García MD [Active, Cardiology] - 07/06/25 7:20 am
Referral Note: You have an appointment to see Dr. García physician observation assistant, Earnestine, at the [place] office on 07/06/2025 at 7:20 AM. You are then scheduled to see Dr. García at the [place] office on 09/21/2025 at 2:40 PM.
Abdirahman Austin MD [Active, Neurology]
Additional Discharge Medication Instructions: - Take aspirin 81 mg daily. If your neighbor bought aspirin 325 mg daily then cut those tablets in half until you are able to get the delivery of the appropriate dose of aspirin 81 mg daily from the
pharmacy on Thursday.
- Take Plavix 75 mg daily for the next 90 days, an updated prescription is being sent to your pharmacy
- Take atorvastatin 40 mg 1 tablet by mouth daily at night
-- 1 prescription of clopidogrel 75 mg tablet was sent by the emergency doctor when she presented in the emergency department however it was only for 21 days. You can utilize that as well but you should stay on that medication for 90 days as
recommended by the cordage sales representative.
Stop atorvastatin 10 mg since we already started the higher dose which is 40 mg.
Prescriptions:
New
atorvastatin 40 mg Tablet
40 mg PO QPM Qty: 30 0RF
aspirin 81 mg Tablet,Chewable
81 mg PO DAILY 0 Days Qty: 30 0RF
clopidogrel 75 mg Tablet
75 mg PO DAILY Qty: 30 0RF
Continued
clonazepam 1 mg Tablet
1.5 mg PO HS
carbidopa-levodopa 25-100 mg tablet
2 tab PO HS
carbidopa-levodopa 25-100 mg tablet
1 tab PO DAILY@0400
pregabalin 75 mg capsule
150 mg PO HS
therapeutic multivitamin Tablet
1 tab PO DAILY
calcium carbonate 500 mg calcium (1,250 mg) Tablet
500 mg PO DAILY
cholecalciferol (vitamin D3) [Vitamin D3] 25 mcg (1,000 unit) Tablet
25 mcg PO DAILY
magnesium 500 mg Tablet
500 mg PO HS
Rx Instructions:
takes suppliment with mag 500mg and ashwaganda 25mg for sleep
Discontinued
atorvastatin 10 mg tablet
10 mg PO QPM
Discharge Orders:
Discharge Patient (As Directed); Ordered 06/13/25
Ordered By: Cruz Berry
Discharge Date and Time
Discharge Date/Time: 06/13/25 18:30
Print Language: ITALIAN
== END 2025-06-13 18:30 | disposition home or self-care (01) | DRG 65 ==
LOC: 4 EAST ACU 13:19
PROVIDERS: Clinical Nurse Specialist Family Health; Emergency Medicine; ADMITTING PHYSICIAN Hospitalist; ATTENDING PHYSICIAN Hospitalist; CONSULT PHYSICIAN Psychiatry & Neurology Neurology; EMERGENCY PHYSICIAN Student in an Organized Health Care Education/Training Program; FAMILY PHYSICIAN Internal Medicine; OTHER PHYSICIAN Internal Medicine Cardiovascular Disease; OTHER PHYSICIAN Surgery Vascular Surgery
PROC: B24BZZ4 Ultrasonography of Heart with Aorta, Transesophageal (ICD-10-PCS; 2025-06-11)
DX: I63.89 Other cerebral infarction (principal); G91.2 (Idiopathic) normal pressure hydrocephalus; G95.20 Unspecified cord compression; I65.22 Occlusion and stenosis of left carotid artery; Z79.899 Other long term (current) drug therapy; F40.240 Claustrophobia; I10 Essential (primary) hypertension; E78.00 Pure hypercholesterolemia, unspecified; D56.9 Thalassemia, unspecified; I06.1 Rheumatic aortic insufficiency; E66.811 Obesity, class 1; M43.12 Spondylolisthesis, cervical region; G89.29 Other chronic pain; G25.81 Restless legs syndrome; G43.909 Migraine, unspecified, not intractable, without status migrainosus; K59.00 Constipation, unspecified; M19.90 Unspecified osteoarthritis, unspecified site; G25.0 Essential tremor; G47.00 Insomnia, unspecified; Z63.4 Disappearance and death of family member; Z68.34 Body mass index [BMI] 34.0-34.9, adult; Z86.73 Personal history of transient ischemic attack (TIA), and cerebral infarction without residual deficits; Z98.2 Presence of cerebrospinal fluid drainage device
CPT/HCPCS: 70250; 70450; 70496; 70498; 70551; 71046; 72170; 80048; 80053; 80061; 82607; 82728; 82746; 83036; 84443; 85025; 85027; 93005; 93306; 93312; 93320; 93325; 93880; 97116; 97162; 97166; 97530; 99285; Q9967

== ENCOUNTER 2025-06-28 12:54 | Inpatient (IN) | payer MEDICARE, SELFPAY ==
[2025-06-26] VITALS (30 sets, daily range): BP systolic 97–142; BP diastolic 64–116; BMI 34.5
[2025-06-26 11:02] LABS: Hematocrit 41.2 % (37.0-47.0); Hemoglobin 12.7 g/dL (12.0-16.0); Mean Corp Hgb Conc. 30.8 g/dL (33.0-37.0); Mean Corpuscular Volume 66.2 fL (81.0-99.0); Nucleated Red Blood Cells % 0 %; Platelet Count 311 10^3/uL (130-400); Red Cell Dist. Width 18.1 % (11.5-14.5)
[2025-06-26 11:14] LABS: INR 0.98; PT 13.2 Sec (11.4-14.6)
[2025-06-26 11:15] LABS: APTT 23.5 Sec (23.4-35.0)
--- NOTE | 2025-06-26 11:22 | ED.CVA ---
History of Present Illness
General
Chief Complaint: CVA/TIA Symptoms
Source: patient
Exam Limitations: none
Time Seen by Provider: 06/26/25 11:09
Nursing documentation reviewed up to this point in time: agreed with
Onset of Stroke Symptoms
Onset of symptoms known: No
Time pt last seen normal is known: No
History of Present Illness
History of Present Illness:
Patient is a 69-year-old female with past medical history of hypertension hyperlipidemia carotid stenosis essential tremor renal insufficiency, hydrocephaly . Presents to the ER for evaluation. Patient reports around 10 AM she was doing bills
and felt a little ache in her right upper arm and then felt numbness in her right arm. [place] questionable mildly weak in right arm. She had no associated headache ,speech difficulitis or chest pain shortness of breath. She was unsure of her right
leg felt little weak however symptoms are all now resolving. She is on aspirin and Plavix. She was recently June 11 to June 13. She had multiple imaging including brain MRI which showed multiple acute ischemic infarcts in the cortical mckay matter
of the left frontal lobe, left parietal ,left occipital lobe. She was started on dual antiplatelet therapy at that time and has been taking it. She has not missed a dose. She had a negative JERAD. Carotid enterectomy was considered and
deferred by vascular surgery with recommendation to continue medical management and have outpatient follow-up.
Past History
Past History
ED Past Medical History: HTN, Hypercholesterolemia and Other (COVID in January 2021; chronic insomnia, osteoarthritis, anemia)
ED Past Surgical History: Gynecological and Orthopedic (Chronic problems with her feet.)
Social History
Tobacco: Non-smoker
Alcohol: None
Drug: None
Personal:
Living: with family
Employment: Disabled
Family History
Family History: Other (Noncontributory)
Phy Exam
General Physical Exam
General Presentation: no apparent distress
General Skin: warm and dry
General Mental: alert
General Hydration: appears well hydrated
Neurological Exam
Neurological Exam: alert and oriented x3
NIH Stroke Score
Level of Consciousness: 0 - Alert
LOC questions: 0-Answers both correctly
LOC Commands: 0-Performs both correctly
Best Gaze: 0-Normal
Visual [place]: 0=Normal, no visual loss
Facial palsy: 0=Normal, symmetrical
Motor - Right Arm: 0=No drift 10 seconds
Motor - Left Arm: 0=No drift 10 seconds
Motor - Right Le-No drift 5 seconds
Motor - Left Le-No drift 5 seconds
Limb Ataxia: 0-Absent
Sensation: 0-Normal
Best Language: 0-No aphasia
Dysarthria: 0-Normal
Extinction and Inattention: 0-No abnormality
Total Score:: 0
Hazel Coma Scale
Eye Opening: Spontaneous
Verbal Response: Oriented
Cerebellar
Cerebellar Function: normal finger to nose
Musculoskeletal Exam
Musculoskeletal Exam: full ROM
Skin Exam
Skin Exam: normal color and warm/dry
Psychiatric Exam
Psychiatric Exam: normal mood/affect
Course
Orders/Labs/Results
Orders:
Orders
06/26/25 10:48
ECG [Electrocardiogram (*1)] Urgent
Reason for Study: TIA/Stroke
EKG- Treatment ONCE
06/26/25 10:52
Complete Blood Count/With Diff Urgent
Comprehensive Metabolic Panel Urgent
PT/INR [Prothrombin Time] Urgent
PTT Urgent
Troponin I Urgent
06/26/25 12:14
CT Head W/o Iv Contrast Urgent
Comment:
Reason For Exam: right arm numbness now resolving
Abnormal Lab Results
06/26/25
10:52
WBC 11.5 H 10^3/uL
(4.8-10.8)
RBC 6.22 H 10^6/uL
(4.20-5.40)
MCV 66.2 L fL
(81.0-99.0)
MCH 20.4 L pg
(27.0-31.0)
MCHC 30.8 L g/dL
(33.0-37.0)
RDW 18.1 H %
(11.5-14.5)
Absolute Neuts (auto) 7.1 H 10^3/uL
(1.4-6.5)
Chloride 110 H mmol/L
(98-107)
BUN 19 H mg/dl
(7-17)
Glucose 107 H mg/dl
(70-99)
Alkaline Phosphatase 133 H U/L
(38-126)
06/26/25 10:52
06/26/25 10:52
Vital Signs
Initial and Last Documented VS:
Initial Vital Signs
Temp Pulse Resp BP Pulse Ox
98.5 F 102 16 134/81 98
06/26/25 10:41 06/26/25 10:41 06/26/25 10:41 06/26/25 10:41 06/26/25 10:41
Last Documented Vital Signs
Temp Pulse Resp BP Pulse Ox
98.5 F 93 20 130/82 98
06/26/25 10:41 06/26/25 14:22 06/26/25 13:00 06/26/25 13:45 06/26/25 14:22
MDM/Problems Addressed
Differential Diagnosis Includes:
not limited to: TIA, CVA
MDM/Problems Addressed:
As documented patient is 69-year-old female recently admitted for stroke at the end of May was discharged on aspirin Plavix and a statin at that time presented to the ER for evaluation. She complained of right arm numbness tingling questionable
weakness and felt questional weak in the right leg symptoms resolved upon arrival and patient had NIH stroke scale of 0. She had clear speech no headache. No trauma. CAT scan negative. I did review patient's imaging including CAT scan/MRI stroke
previous admission all with her carotid ultrasound. She was followed by Dr. Blanco for this during previous admission and medical management was decided with TIA would recommend admission.
Case reviewed with neurology.
*Radiology
Radiology exam reviewed: radiology read reviewed
*Pulse Oximetry
SaO2: 95
Oxygen Mode of Delivery: Room air
Patient hypoxic: no
*Critical Care Note
Total Time (30-74mins, 75-104mins- exclusive of procedures): Not Applicable
Patient Management
Discussion with other providers: Cascade Operator (Neuro DR Keyes )
ED Attending Note
-
Portions of this chart may have been created with voice recognition software.� Occasional wrong word or��sound alike� substitutions may have occurred due to the inherent limitations of voice recognition software.
Discharge Plan
Departure
Patient Disposition: Admit
Date of Disposition: 06/26/25
Time of Disposition: 16:07
Admit to: Telemetry
Admit to doctor: hospitalist
Presentation/result/management discussed w/ accepting MD/DO: Hospitalist
Patient with high blood pressure during this ER visit?: No
Condition: Fair
Covid-19: Not Applicable
Discharge Problem:
TIA (transient ischemic attack)
Prescriptions:
No Action
clonazepam 1 mg Tablet
1.5 mg PO DAILY@2099
carbidopa-levodopa 25-100 mg tablet
2 tab PO DAILY@1999
carbidopa-levodopa 25-100 mg tablet
1 tab PO DAILY@299
pregabalin 75 mg capsule
150 mg PO DAILY@2099
therapeutic multivitamin Tablet
1 tab PO DAILY
calcium carbonate 500 mg calcium (1,250 mg) Tablet
500 mg PO DAILY
cholecalciferol (vitamin D3) [Vitamin D3] 25 mcg (1,000 unit) Tablet
25 mcg PO DAILY
atorvastatin 40 mg Tablet
40 mg PO QPM Qty: 30 0RF
aspirin 81 mg Tablet,Chewable
81 mg PO DAILY 0 Days Qty: 30 0RF
clopidogrel 75 mg Tablet
75 mg PO DAILY Qty: 30 0RF
magnesium oxide 500 mg magnesium Tablet
500 mg PO HS
Referrals:
Attila Cardoso MD [Family Provider, Internal Medicine]
Interventions
Interventions:
*Risk Screen - Suicide Last Done: 06/26/25 11:11
*General Assessment Last Done: 06/26/25 11:11
*Neglect/Abuse Screening Last Done: 06/26/25 11:11
*ED- Fall Risk Assessment Last Done: 06/26/25 11:11
*ED COVID-19 Vaccine History Last Done: 06/26/25 11:11
ED- Pulmonary Assessment Last Done: 06/26/25 11:13
ED- Neurological Assessment Last Done: 06/26/25 11:09
ED- Cardiac Assessment Last Done: 06/26/25 11:13
Discharge Date and Time
Print Language: TRISTANIAN
[2025-06-26 11:34] LABS: ALT (SGPT) < 10 U/L (0-35); AST (SGOT) 19 U/L (14-36); Albumin 4.0 g/dl (3.5-5.0); Alkaline Phosphatase 133 U/L (38-126); Blood Urea Nitrogen 19 mg/dl (7-17); Calcium 9.9 mg/dl (8.4-10.2); Carbon Dioxide 26 mmol/L (22-30); Chloride 110 mmol/L (98-107); Glucose 107 mg/dl (70-99); Potassium 4.9 mmol/L (3.5-5.1); Sodium 142 mmol/L (135-145); Total Protein 7.1 g/dl (6.3-8.2); eGFR > 60.00
[2025-06-26 11:41] LABS: Troponin I < 0.012 ng/ml
--- NOTE | 2025-06-26 18:34 | HPS.HSE ---
Family Physician
-
Family Physician: Attila Cardoso MD
Chief Complaint
-
right arm symptoms
History of Present Illness
69-year-old female past medical history of recent CVA, hypertension, hyperlipidemia, carotid stenosis, essential tremor, CKD, hydrocephalus at with shunt, migraines, anemia/thalassemia, restless leg syndrome, presenting with right upper arm
numbness and tingling questionable weakness similar to recent admission when she was diagnosed with ischemic strokes. She denies headache, speech difficulty or chest pain or shortness of breath. She is unsure if her right leg felt weak but denies
weakness currently.
She was recently admitted from June 11 to June 13 for right upper extremity weakness and gait ataxia. Patient was found to have multiple acute ischemic infarcts of cortical mckay matter of the left frontal lobe, left parietal lobe and left occipital
lobe. Carotid ultrasound showed bilateral carotid stenosis greater than 70% on the left. She was started on aspirin and Plavix. She was seen by vascular surgery and medical management was recommended carotid stenosis and CEA was deferred.
Cardiology recommended outpatient ambulatory monitoring for evaluation of paroxysmal atrial fibrillation.
Medical History
Past Medical History
Past Medical History: Reports Other (recent CVA, hypertension, hyperlipidemia, carotid stenosis, essential tremor, CKD, hydrocephalus at with shunt, migraines, anemia/thalassemia, restless leg syndrome, )
Past Surgical History: Reports None
Social History
Tobacco: Non-smoker
Alcohol: None
Drug: None
Family History
Family History: Not pertinent
Allergies / Home Medications
Allergies reflects when Allergies were last updated in [facility].
Home Medications with original date entered in [facility]
Allergy/Medication List:
Allergies
Allergy/AdvReac Type Severity Reaction Status Date / Time
cefaclor (From Ceclor) Allergy Mild Rash Verified 06/26/25 10:47
acetaminophen Allergy Unknown 'upset Verified 06/26/25 10:47
stomach'
metaxalone Allergy Unknown Unknown Verified 06/26/25 10:47
ropinirole (From Requip) Allergy Rash Verified 06/26/25 10:47
tramadol Allergy Rash Verified 06/26/25 10:47
Home Medications
clonazepam 1 mg tablet 1.5 mg PO DAILY@2100 Mental Health/Anxiety 11/15/22
carbidopa 25 mg-levodopa 100 mg tablet 1 tab PO DAILY@030 Neurological Condition 09/08/23
carbidopa 25 mg-levodopa 100 mg tablet 2 tab PO DAILY@1999 Neurological Condition 09/08/23
pregabalin 75 mg capsule 150 mg PO DAILY@2100 09/08/23
calcium carbonate 500 mg PO DAILY Supplement 06/08/25
cholecalciferol (vitamin D3) 25 mcg (1,000 unit) tablet (Vitamin D3) 25 mcg PO DAILY Supplement 06/08/25
therapeutic multivitamin 1 tab PO DAILY Supplement 06/08/25
aspirin 81 mg chewable tablet 81 mg PO DAILY 0 days #30 tabs 06/13/25
atorvastatin 40 mg tablet 40 mg PO QPM #30 tabs 06/13/25
clopidogrel 75 mg tablet 75 mg PO DAILY #30 tabs 06/13/25
magnesium oxide 500 mg PO HS 06/26/25
Review of Systems
-
History Source: Patient
A 12 point ROS was completed and negative except as noted: Yes
Constitutional: Reports No Symptoms
EENT: Reports No Symptoms
Respiratory: Reports No Symptoms
Cardiac: Reports No Symptoms
Abdomen/GI: Reports No Symptoms
: Reports No Symptoms
Musculoskeletal: Reports No Symptoms
Skin: Reports No Symptoms
Neurological: Reports No Symptoms
Endocrine: Reports No Symptoms
Hematologic/Lymphatic: Reports No Symptoms
Psych: Reports No Symptoms
Physical Exam
Vital Signs
Vital Signs
Temp Pulse Resp BP Pulse Ox
98.5 F 87 19 136/86 97
06/26/25 10:41 06/26/25 17:15 06/26/25 17:15 06/26/25 17:00 06/26/25 17:15
Physical Exam
General: Well Developed, Well Nourished and No Apparent Distress
HEENT: NormoCephalic, Moist mucous membranes and Atraumatic
Respiratory: Clear
Cardiac: S1/S2 and Regular Rhythm; No Murmur or Rub
GI: Soft, Non Tender, Non Distended and Normal Bowel Sounds; No Organomegaly
Rectal: Deferred by Provider
Musculoskeletal: No Clubbing, No Cyanosis and No Edema
Skin: No Rash
Neuro: Nonfocal/grossly intact
Laboratory Results
-
06/26/25 10:52
06/26/25 10:52
Laboratory Results
PT 13.2 Sec (11.4-14.6) 06/26/25 10:52
INR 0.98 06/26/25 10:52
APTT 23.5 Sec (23.4-35.0) 06/26/25 10:52
Total Bilirubin 0.5 mg/dl (0.2-1.3) 06/26/25 10:52
AST 19 U/L (14-36) 06/26/25 10:52
ALT < 10 U/L (0-35) 06/26/25 10:52
Alkaline Phosphatase 133 U/L (38-126) H 06/26/25 10:52
Troponin I < 0.012 ng/ml 06/26/25 10:52
Data Reviewed
-
Lab Data: Labs Reviewed by me
Old Records: Reviewed
Impression/Plan
-
IMPRESSION:
PLAN:
# Recurrent right upper extremity symptom unclear whether recurrence of prior stroke versus new embolic versus left carotid related strokes
# Recent left frontal lobe/superior/posterior left parietal lobe posterior left occipital lobe infarct
# Less than 50% stenosis of right carotid
# Possible greater than 70% stenosis of left carotid artery
- CT head shows no acute intracranial abnormality
- Recently had JERAD which did not show embolic source
- Neurology consulted, unclear if will need repeat MRI versus vascular evaluation for consideration of left CEA
- Continue aspirin, Plavix, statin
Essential hypertension
Hyperlipidemia
- Continue statin
Essential tremor
- Continue carbidopa levodopa
CKD
- Renal function based
Hydrocephalus at with shunt
History of migraine
Anemia/thalassemia
Restless leg syndrome
- Continue pregabalin
Anxiety/depression
- Continue clonazepam
Full code
DVT prophylaxis�SCDs
Regular diet
[2025-06-26] MEDS: LIPITOR 40 MG PO (18:40)
[2025-06-26] MEDS: SINEMET 25-100 2 TABLET PO (20:14)
[2025-06-26] MEDS: MAGNESIUM OXIDE 500 MG PO (21:14)
[2025-06-26] MEDS: KLONOPIN 1.5 MG PO (21:14)
[2025-06-26] MEDS: LYRICA 150 MG PO (21:14)
[2025-06-27] VITALS (7 sets, daily range): BP systolic 102–137; BP diastolic 57–96
[2025-06-27] MEDS: SINEMET 25-100 1 TABLET PO (02:08)
[2025-06-27 08:16] LABS: Hematocrit 39.8 % (37.0-47.0); Hemoglobin 12.3 g/dL (12.0-16.0); Mean Corp Hgb Conc. 30.9 g/dL (33.0-37.0); Mean Corpuscular Volume 66.2 fL (81.0-99.0); Nucleated Red Blood Cells % 0 %; Platelet Count 292 10^3/uL (130-400); Red Cell Dist. Width 18.0 % (11.5-14.5)
[2025-06-27 08:49] LABS: ALT (SGPT) < 10 U/L (0-35); AST (SGOT) 22 U/L (14-36); Albumin 3.7 g/dl (3.5-5.0); Alkaline Phosphatase 118 U/L (38-126); Blood Urea Nitrogen 19 mg/dl (7-17); Calcium 8.5 mg/dl (8.4-10.2); Carbon Dioxide 24 mmol/L (22-30); Chloride 109 mmol/L (98-107); Estimated Creatinine Clearance 51 ml/min; Glucose 81 mg/dl (70-99); Potassium 4.7 mmol/L (3.5-5.1); Sodium 142 mmol/L (135-145); Total Protein 6.5 g/dl (6.3-8.2); eGFR > 60.00
--- NOTE | 2025-06-27 09:03 | CON.NEURO ---
Addendum entered and electronically signed by Gonzalez Keyes MD 06/27/25 11:15:
Studies reviewed.
I have personally examined the patient. I reviewed and agree with the FINAL CLEANER's Note.
My addenda:
Awake, alert, interactive. No acute distress.
Speech intact.
Follows 2-step requests w/o difficulty. No tremor.
Extra-ocular movements grossly intact.
Facial movements full and symmetric. Hearing intact to normal conversational volume.
Normal UE movements bilaterally.
Neck: full ROM.
Chest: no dyspnea
Heart: no JVD
Ext: (-) Clubbing, (-) Cyanosis, (-) Edema
IMPRESSIONS/RECOMMENDATIONS:
Abrupt onset of right upper extremity and right lower extremity weakness and change of sensation most likely secondary to TIA which in turn may be due to relative hypotension in light of carotid stenosis
Appreciate vascular surgery reevaluation to determine if events are worthy of surgical intervention of the right carotid artery
Advance patient's atorvastatin from 40 to 80 mg due to continued elevated LDL
Provide aspirin and clopidogrel with discontinuance of clopidogrel 21 days after initiation
Allow permissive hypertension
D/W patient / family
All questions answered.
Will continue to follow pending results.
Original Note:
Documented by User: Alena Cortez NP 06/27/25 10:54
Neuro Assessment/Plan
Assessment
Patient is a 69-year-old female with past medical history of hypertension, hyperlipidemia, carotid stenosis, essential tremor, renal insufficiency, hydrocephaly with shunt presented to [facility] on 06/26/2025 with right upper arm numbness and
tingling questionable weakness similar to recent admission when she was diagnosed with ischemic strokes.
Head CT 06/26/2025: No acute intracranial abnormality. Unchanged prominence of the lateral and third ventricles, likely due to central atrophy versus communicating hydrocephalus.
Brain MRI 06/09/2025:
1. MULTIPLE ACUTE ISCHEMIC INFARCTS in the cortical mckay matter of the superolateral LEFT FRONTAL LOBE, superior and posterior LEFT PARIETAL LOBE, and posterior LEFT OCCIPITAL LOBE.
2. Moderate to severe distention of the bodies and occipital horns of the lateral ventricles and severe distention of the 3rd ventricle. Diagnostic possibilities are (1) ex vacuo dilatation secondary to moderate bilateral frontal and parietal lobe
volume loss, (2) cerebral aqueduct stenosis, or (3) normal pressure communicating hydrocephalus.
3. Mild to moderate white matter leukoaraiosis in the periventricular white matter.
4. Mild multilevel upper cervical spinal cord compression.
Head and neck CTA 06/08/2025:
Findings suggesting normal pressure hydrocephalus. Stable. Clinical correlation recommended
No acute vascular pathology.
Short segment of 50-69% proximal right common carotid artery stenosis.
Approximate 50% stenosis of the proximal left internal carotid artery
Multilevel degenerative disc disease.
Less than grade 1 anterolisthesis of C3 on C4
Carotid US 06/08/2025:
Right carotid: Small amount of noncalcified plaque within the proximal ICA. Any stenosis is less than 50% based upon velocity criteria.
Left carotid: Calcified and noncalcified plaque within the bulb and proximal ICA with elevated peak systolic velocity 220 cm/s. End-diastolic velocity of 83 cm/s. ICA/CCA ratio 4.17. Findings consistent with estimated stenosis of at least 50%,
possibly greater than 70%.
JERAD 06/12/2025:
Normal biventricular size and systolic function without regional wall motion
abnormality. Estimated LVEF 65-70%.
Mild/moderate aortic regurgitation.
No thrombus detected in the left atrial appendage.
Normal interatrial septum. No evidence of shunt by color flow Doppler. Negative
bubble study with and without simulated Valsalva.
TTE 06/09/2025:
1. Left ventricle: Normal size and function with an estimated ejection
fraction of 56%. No regional wall motion abnormalities. Normal diastolic
function.
2. Right ventricle: Normal
3. Atria: Normal
4. Mitral valve: No mitral stenosis or mitral regurgitation
5. Aortic valve: Sclerotic. No aortic insufficiency or aortic stenosis
6. Tricuspid valve: Not well-visualized. Probable normal estimated pulmonary
artery systolic pressures
7. No prior studies for comparison
Labs: Hgb A1C 5.5, LDL 107->82
Plan
Impression: abrupt onset of right sided sensory changes with concern for TIA/CVA most likely due to L ICA stenosis
-vascular consult given recurrent symptoms and known L ICA stenosis
-check ARU and P2Y12 to ensure she is an aspirin and clopidogrel responder, continue aspirin and clopidogrel for now
-allow permissive hypertension to ensure adequate brain perfusion
-LDL 82 with goal <70, increase atorvastatin from 40 mg to 80 mg nightly
All questions encouraged and answered, plan of care discussed with Dr. Keyes, patient and family
Consultation
Order
Date of Consultation: 06/27/25
Requesting Provider: hospitalist
Reason for Consult: RUE numbness/tingling
Subjective/Objective
Subjective Data
Date of Service: June 27, 2025
Patient is a 69-year-old female with past medical history of hypertension, hyperlipidemia, carotid stenosis, essential tremor, renal insufficiency, hydrocephaly with shunt presented to [facility] on 06/26/2025 with right upper arm numbness and
tingling questionable weakness similar to recent admission when she was diagnosed with ischemic strokes. Patient reports around 10 AM she was doing bills and felt a little ache in her right upper arm and then felt numbness. [place] questionable mildly
weak in right arm. Denies headache or dizziness. Denies issues with speech or swallow. Denies issues with bowel/bladder. She states she may have had RLE weakness as well but symptoms resolved when she got to the hospital. She is on aspirin and
Plavix. She was recently admitted here from June 11 to June 13. She had multiple imaging including brain MRI which showed multiple acute ischemic infarcts in the cortical mckay matter of the left frontal lobe, left parietal ,left occipital lobe. She
was started on dual antiplatelet therapy at that time and has been taking it. She states she has been compliant with her medications. She had a negative JERAD. Carotid enterectomy was considered and deferred by vascular surgery with recommendation
to continue medical management and have outpatient follow-up. In ED her head CT showed no acute intracranial abnormality. Currently patient is asymptomatic with an NIHSS 0 and therefore not a TNK candidate. Neurology has been consulted for recurrent
RUE numbness and weakness.
Objective Data
Vital Signs
Temp Pulse Resp BP Pulse Ox
97.9 F 83 16 116/74 97
06/27/25 03:16 06/27/25 03:16 06/27/25 03:16 06/27/25 03:16 06/27/25 03:16
Lab Results
06/27/25 06:46
06/27/25 06:46
PT 13.2 Sec (11.4-14.6) 06/26/25 10:52
INR 0.98 06/26/25 10:52
APTT 23.5 Sec (23.4-35.0) 06/26/25 10:52
Sodium 142 mmol/L (135-145) 06/27/25 06:46
Potassium 4.7 mmol/L (3.5-5.1) 06/27/25 06:46
BUN 19 mg/dl (7-17) H 06/27/25 06:46
Glucose 81 mg/dl (70-99) 06/27/25 06:46
Calcium 8.5 mg/dl (8.4-10.2) 06/27/25 06:46
Patient Allergies
acetaminophen Allergy (Verified 06/26/25 18:35)
'upset stomach'
cefaclor (From Ceclor) Allergy (Verified 06/26/25 18:35)
Rash
metaxalone Allergy (Verified 06/26/25 18:35)
Unknown
ropinirole (From Requip) Allergy (Verified 06/26/25 10:47)
Rash
tramadol Allergy (Verified 06/26/25 10:47)
Rash
CVA Assessment
NIH Stroke Score
Level of Consciousness: 0 - Alert
LOC Questions: 0-Answers both correctly
LOC Commands: 0-Performs both correctly
Best Horizontal Gaze: 0-Normal
Visual [place]: 0=Normal, no visual loss
Facial Palsy: 0=Normal, symmetrical
Motor - Right Arm: 0=No drift 10 seconds
Motor - Left Arm: 0=No drift 10 seconds
Motor - Right Le-No drift 5 seconds
Motor - Left Le-No drift 5 seconds
Limb Ataxia: 0-Absent
Sensation: 0-Normal
Best Language: 0-No aphasia
Dysarthria: 0-Normal
Extinction and Inattention: 0-No abnormality
NIH Total Score:: 0
Tenecteplase Contraindications
Inclusion and Exclusion criteria reviewed: Yes
Modified Evelyn Score (MRS)
-
Modified Hartwell Scale (mRS): No symptoms
Score: 0
Review of Systems
-
History Source: Patient
EENT: No Symptoms Reported
Respiratory: No Symptoms
Cardiac: No Symptoms
Abdomen/GI: No Symptoms
Genitourinary: No Symptoms
Musculoskeletal: No Symptoms
Skin: No Symptoms
Neuro: Weakness (RUE/RLE) and Numbness (RUE)
Endocrine: No Symptoms
Allergy / Immunology: No Symptoms
Physical Exam
-
General: No Apparent Distress and Comfortable
HEENT: Normocephalic, Atraumatic and Anicteric
Neck: Full Range of Motion
Respiratory: No Dyspnea
Cardiac: No JVD
GI: Non-distended
Skin: Unremarkable
Extremities: No Clubbing, No Cyanosis and No Edema
Psych: Anxious
Extended Neurological Exam
Mood & Affect: Anxious
Attention Span & Concentration: Awake, Alert, Interactive and No Difficulty with 2 Step Request
Memory: Vague and Incomplete Historian
Tremor: Hand Tremor Absent and Head Tremor Absent
Involuntary Movement: None
Speech: Quality Unremarkable, Quantity Unremarkable and Rate of Production Unremarkable
Cranial Nerve II: Left Eye: Visual [place] Grossly Intact
Cranial Nerve II: Right Eye: Visual [place] Grossly Intact
Cranial Nerves III, IV, : Extraocular Movement: Extraocular Movement Full in all Directions
Cranial Nerve VII: Facial Symmetry: Normal Facial Symmetry
Cranial Nerve VIII: Hearing: Unremarkable Hearing to Normal Conversational Volume
Cranial Nerves IX, X: Palate Movement: Palate Elevation Symmetric
Cranial Nerve XI: Shoulder Shrug: Unremarkable
Cranial Nerve XII: Tongue Protusion: Midline
Muscle Strength, Overall: Full Throughout
Muscle Bulk & Tone: Bulk Unremarkable and Tone Unremarkable
Pronator Drift: No Drift in Upper Extremities and No Drift in Lower Extremities
Coordination: [id number] Testing Unremarkable and Reaches for Objects without Difficulty
Data Reviewed
-
CT-A: Report Reviewed and Image Reviewed
CT Head: Report Reviewed and Image Reviewed
MRI Head: Report Reviewed and Image Reviewed
Labs: Report Reviewed
Lipid Profile: Report Reviewed
Reviewed with: Physician, Patient and Family
Old Records: Summarized
Medications
-
Active Medications
Generic Name Dose Route Start Last Admin
Trade Name Freq PRN Reason Stop Dose Admin
Aspirin 81 mg 06/27/25 08:00
Aspirin 81 Mg Chewable Tablet PO 07/25/25 07:59
DAILY MISTY
Atorvastatin Calcium 40 mg 06/27/25 18:00
Atorvastatin (Lipitor) 40 Mg Tablet PO 07/25/25 17:59
QPM MISTY
Calcium Carbonate 500 mg 06/27/25 08:00
Calcium Carbonate 500 Mg Tablet PO 07/25/25 07:59
DAILY MISTY
Carbidopa/Levodopa 2 tablet 06/26/25 20:00 06/26/25 20:14
Carbidopa (25 Mg)/Levodopa (100 Mg) Regular Release Tablet PO 07/24/25 19:59 2 tablet
DAILY@2000 MISTY Administration
Carbidopa/Levodopa 1 tablet 06/27/25 03:00 06/27/25 02:08
Carbidopa (25 Mg)/Levodopa (100 Mg) Regular Release Tablet PO 07/25/25 02:59 1 tablet
DAILY@299 MISTY Administration
Cholecalciferol 25 mcg 06/27/25 08:00
Cholecalciferol (Vitamin D3) 25 Mcg Tablet (1,000 Units) PO 07/25/25 07:59
DAILY MISTY
Clonazepam 1.5 mg 06/26/25 21:00 06/26/25 21:14
Clonazepam 1 Mg Tablet PO 07/24/25 20:59 1.5 mg
DAILY@2099 MISTY Administration
Clopidogrel Bisulfate 75 mg 06/27/25 08:00
Clopidogrel 75 Mg Tablet PO 07/25/25 07:59
DAILY MISTY
Magnesium Oxide 500 mg 06/26/25 22:00 06/26/25 21:14
Magnesium Oxide 500 Mg Tablet PO 07/24/25 21:59 500 mg
HS MISTY Administration
Multivitamins Therapeutic 1 tablet 06/27/25 08:00
Multivitamin Tablet PO 07/25/25 07:59
DAILY MISTY
Pregabalin 150 mg 06/26/25 21:00 06/26/25 21:14
Pregabalin 75 Mg Capsule PO 07/24/25 20:59 150 mg
DAILY@2099 MISTY Administration
Sodium Chloride 0 flush 06/26/25 21:00
Sodium Chloride 0.9% (Flush) Syringe IV 07/24/25 20:59
PER PROTOCOL MISTY
Home Medications
�Medication �Instructions �Recorded
clonazepam 1 mg tablet 1.5 mg PO DAILY@2099 Mental 11/15/22
Health/Anxiety
carbidopa 25 mg-levodopa 100 mg 1 tab PO DAILY@299 Neurological 09/08/23
tablet Condition
carbidopa 25 mg-levodopa 100 mg 2 tab PO DAILY@1999 Neurological 09/08/23
tablet Condition
pregabalin 75 mg capsule 150 mg PO DAILY@2099 Seizures 09/08/23
calcium carbonate 500 mg PO DAILY Supplement 06/08/25
cholecalciferol (vitamin D3) 25 25 mcg PO DAILY Supplement 06/08/25
mcg (1,000 unit) tablet (Vitamin
D3)
therapeutic multivitamin 1 tab PO DAILY Supplement 06/08/25
aspirin 81 mg chewable tablet 81 mg PO DAILY 0 days #30 tabs 06/13/25
atorvastatin 40 mg tablet 40 mg PO QPM #30 tabs 06/13/25
clopidogrel 75 mg tablet 75 mg PO DAILY #30 tabs 06/13/25
magnesium oxide 500 mg PO HS Supplement 06/26/25
Past History
Past History
ED Past Medical History: HTN, Hypercholesterolemia and Other (COVID in January 2021; chronic insomnia, osteoarthritis, anemia)
ED Past Surgical History: Gynecological and Orthopedic (Chronic problems with her feet.)
Family/Social History
Tobacco: Non-smoker
Alcohol: None
Drug: None
Personal:
Living: with family
Employment: Disabled
Family History: Other (Noncontributory)

Documented by User: Gonzalez Keyes MD 06/27/25 11:03
CVA Assessment
NIH Stroke Score
NIH Total Score:: 0
Modified Hartwell Score (MRS)
-
Score: 0
[2025-06-27] MEDS: VITAMIN D3 (cholecalciferol) 25 MCG PO (09:45)
[2025-06-27] MEDS: LOW STRENGTH ASPIRIN 81 MG PO (09:46)
[2025-06-27] MEDS: PLAVIX 75 MG PO (09:46)
[2025-06-27] MEDS: OSCAL CAL 500 500 MG PO (09:46)
[2025-06-27] MEDS: THERAGRAN 1 TABLET PO (09:46)
[2025-06-27 09:57] LABS: HDL Cholesterol 30 mg/dl; LDL Cholesterol, Calculated 82 mg/dl; Very Low Density Lipoprotein 43 mg/dl (0-30)
[2025-06-27 12:18] LABS: VerifyNow Aspirin 497 ARU; VerifyNow PRU 206 PRU (180-376)
--- NOTE | 2025-06-27 12:52 | CON.VAS ---
Addendum entered and electronically signed by Alexys Blanco III, MD 06/27/25 15:02:
This patient was seen and examined in collaboration with DOMINGA Christy. I agree with the history and physical exam as well as the assessment and plan. I have the following additions:
Patient known to me.
Recent admission for left hemispheric strokes
Distribution of strokes on MRI (frontal, parietal AND occipital) was concerning for embolic source however on cross-sectional imaging she did have soft plaque in the left internal carotid artery with some higher risk features (see prior notes for
centerline images and additional detail).
She was discharged on dual antiplatelet therapy with scheduled follow-up and was to undergo heart monitor for possible arrhythmia
Now returns with right arm numbness and weakness similar to previous symptoms. She is back to baseline currently and is without other complaints.
Recommend repeating MRI brain
Recommend repeating CT angiogram of the head and neck to re-evaluate the left ICA plaque
Discussed possible carotid intervention with the patient and her brother Conrad (telephone)
Will await updated imaging and appreciate neurology recommendations
Continue dual antiplatelet therapy
Signed:
Alexys Blanco III, MD
Vascular Surgery
[facility]
Original Note:
Consultation
Consultation Request
Date/Time Consultation Performed: 06/27/2025 12:00
Performing Provider: Dr. Blanco
Reason for Consultation: Carotid stenosis
Medical History
-
Chief Complaint: Right upper extremity weakness/numbness
History of Present Illness:
69-year-old female with past medical history significant for HTN, HLD, restless leg syndrome, insomnia presenting to the ER yesterday for intermittent right upper extremity weakness and paresthesia. Patient was here 2 weeks ago for the same
symptoms. We saw her at that time as well.
From last admission:
Carotid ultrasound: Right carotid: Small amount of noncalcified plaque within the proximal ICA. Any stenosis is less than 50% based upon velocity criteria.
Left carotid: Calcified and noncalcified plaque within the bulb and proximal ICA with elevated peak systolic velocity 220 cm/s. End-diastolic velocity of 83 cm/s. ICA/CCA ratio 4.17. Findings consistent with estimated stenosis of at least 50%,
possibly greater than 70%.
Past Medical History
Past Medical History: HTN and Other (HLD, restless legs, insomnia, osteoarthritis, osteoporosis, thalassemia)
Past Surgical History: Other (b/l TKR, tubal ligation, b/l carpal tunnel release, b/l cataract removal)
Social History
Tobacco: Non-Smoker
Alcohol: None
Drug: None
Personal:
Employment: Disabled
Family History
Family History: Reviewed & Not Pertinent
Allergies / Home Medications
Allergy/AdvReac Type Severity Reaction Status Date / Time
acetaminophen Allergy 'upset Verified 06/26/25 18:35
stomach'
cefaclor (From Ceclor) Allergy Rash Verified 06/26/25 18:35
metaxalone Allergy Unknown Verified 06/26/25 18:35
ropinirole (From Requip) Allergy Rash Verified 06/26/25 10:47
tramadol Allergy Rash Verified 06/26/25 10:47
�Medication �Instructions �Recorded �Confirmed �Type
clonazepam 1 mg tablet 1.5 mg PO DAILY@2100 Mental 11/15/22 06/26/25 History
Health/Anxiety
carbidopa 25 mg-levodopa 100 mg 1 tab PO DAILY@0300 Neurological 09/08/23 06/26/25 History
tablet Condition
carbidopa 25 mg-levodopa 100 mg 2 tab PO DAILY@2000 Neurological 09/08/23 06/26/25 History
tablet Condition
pregabalin 75 mg capsule 150 mg PO DAILY@2100 Seizures 09/08/23 06/26/25 History
calcium carbonate 500 mg PO DAILY Supplement 06/08/25 06/26/25 History
cholecalciferol (vitamin D3) 25 25 mcg PO DAILY Supplement 06/08/25 06/26/25 History
mcg (1,000 unit) tablet (Vitamin
D3)
therapeutic multivitamin 1 tab PO DAILY Supplement 06/08/25 06/26/25 History
aspirin 81 mg chewable tablet 81 mg PO DAILY 0 days #30 tabs 06/13/25 06/26/25 Rx
atorvastatin 40 mg tablet 40 mg PO QPM #30 tabs 06/13/25 06/26/25 Rx
clopidogrel 75 mg tablet 75 mg PO DAILY #30 tabs 06/13/25 06/26/25 Rx
magnesium oxide 500 mg PO HS Supplement 06/26/25 06/26/25 History
Review of Systems
-
History Source: Patient
All other systems: Negative unless noted
Constitutional: Reports No Symptoms
EENT: Reports No Symptoms
Respiratory: Reports No Symptoms
Cardiac: Reports No Symptoms
Vascular: Denies Leg Pain / Claudication
Abdomen/GI: Reports No Symptoms
: Reports No Symptoms
Musculoskeletal: Reports No Symptoms
Skin: Reports No Symptoms
Neurological: Reports Weakness
Endocrine: Reports No Symptoms
Physical Exam
Vital Signs
Temp Pulse Resp BP Pulse Ox
98.2 F 86 18 102/81 98
06/27/25 11:41 06/27/25 11:41 06/27/25 11:41 06/27/25 11:41 06/27/25 11:41
Lab Results
06/27/25 06:46
06/27/25 06:46
Troponin I < 0.012 ng/ml 06/26/25 10:52
Physical Exam
General: No Apparent Distress
HEENT: Normocephalic and Atraumatic
Respiratory: Non Labored Respirations
Cardiac: Negative JVD
Musculoskeletal: No Clubbing, No Cyanosis and No Edema
Skin: Warm
Neuro: Awake, Alert, Oriented and No Motor Deficits
Psych: Calm
Assessment / Plan
-
69-year-old female with right upper extremity weakness/numbness event at home, now resolved.
Patient was here 2 weeks ago with same symptoms.
Plan:
Repeat MRI pending
Repeat CTA head and neck pending
Will follow-up with patient after scans complete
Data Reviewed
-
Labs: Labs Reviewed by me
[2025-06-27] MEDS: VALIUM INJECTION 2 MG IV (16:06)
--- NOTE | 2025-06-27 18:07 | W.PN.HOSP.TC ---
Addendum entered and electronically signed by Sampson Carlton MD 06/27/25 22:59:
Attending Addendum-
I saw and evaluated the patient. I reviewed the resident�s note and agree with findings and plan as documented in the resident�s note. Sub: rue weakness resolved. worried about sxs returning as they have previously after last DC. Denies neurological
sxs. Full 12 point ROS reviewed and negative except as documented Exam: Vitals reviewed in chart GEN-NAd heart RRR lungs clear abd soft LE no edema Neuro AAO x 3 MS 5/ sensation intact PEERLA
Plan:
# Recurrent right upper extremity weakness/paraesthesias
# MRI brain06/09-MULTIPLE ACUTE ISCHEMIC INFARCTS in the cortical mckay matter of the superolateral LEFT FRONTAL LOBE, superior and posterior LEFT PARIETAL LOBE, and posterior LEFT OCCIPITAL LOBE.
- 06/08- carotid U/S-Right carotid: Small amount of noncalcified plaque within the proximal ICA. Any stenosis is less than 50% based upon velocity criteria.
Left carotid: Calcified and noncalcified plaque within the bulb and proximal ICA-Findings consistent with estimated stenosis of at least 50%, possibly greater than 70%.
- CT head shows no acute intracranial abnormality
- JERAD 06/12-EF 60-65% which did not show embolic source
- Neurology input appreciated- increase atorvastatin
- Continue aspirin, Plavix
- c/s vasc surgery- repeat CTA head/neck and MRI brain
- check platelet function assays for plavix and asa
- further intervention based on results
#Hyperlipidemia
- increase atorvastatin
#Parkinsonism?- Continue carbidopa levodopa
#Hydrocephalus at with LAMINATOR shunt
#History of migraine
#Anemia/thalassemia
#Restless leg syndrome- Continue pregabalin
#Anxiety/depression- Continue clonazepam, PDMP reviewed
Full code
DVT prophylaxis�SCDs
ACP
Patient consented to discuss, was alone, time spent explanation of advance directives, changes in health status, patient�s health care wishes if the patient becomes unable to make health decisions, goals of care, code status, and prognosis 'duc
never been asked that question, i need to think about it. do everything for now'- 16 minutes
Time spent coordinating care, review of plan of care with resident, personally reviewed previous records in EMR, med rec, labs, radiology, d/w nursing, family total time documented is exclusive of any additional time listed that was spent in advance
care planning discussion -� 52 minutes
Original Note:
Today's Communication/Plan
-
For MRI and ct angiography today, review with result
Increase Atorvastatin to 80mg
For possible carotid intervention after result
Assessment / Plan
Assessment / Plan
PLAN:
Recurrent right upper extremity symptom
Previous Vascular US- Less than 50% stenosis of right carotid and Possible greater than 70% stenosis of left carotid artery
- CT head shows no acute intracranial abnormality
- Recently had JERAD which did not show embolic source
- Neurology consulted increase Atorvastatin from 40-80mg, to discontinue Clopidogrel after 21 days and allow permissive hypertension
-Vascular surgery consulted, request brain MRI, Ct Angio, Possible Carotid intervention
- Continue aspirin, Plavix
Essential hypertension
Hyperlipidemia
-Elevated LDL (43)
- Continue statin, increase Atorvastatin to 80mg
Essential tremor
- Continue carbidopa levodopa
CKD
- Renal function based
Hydrocephalus at with shunt
History of migraine
Anemia/thalassemia
Restless leg syndrome
- Continue pregabalin
Anxiety/depression
- Continue clonazepam
Full code
DVT prophylaxis�SCDs
Regular diet
Anticipated Discharge: 24 - 48 hours
Subjective/Interval History
-
Date of Service: June 27, 2025
Patient seen.
Right upper arm Paraesthesia and Weakness resolved
No focal Neurological deficits.
Objective Data
-
Labs:
Laboratory Results
06/27/25
06:46
WBC 11.2 H
Hgb 12.3
Hct 39.8
Plt Count 292
Sodium 142
Potassium 4.7
Chloride 109 H
Carbon Dioxide 24
BUN 19 H
Creatinine 0.8
Glucose 81
Calcium 8.5
Total Bilirubin 0.8
AST 22
ALT < 10
Alkaline Phosphatase 118
Vital Signs:
Vital Signs
Temp Pulse Resp BP Pulse Ox
98.8 F 100 18 115/75 95
06/27/25 15:31 06/27/25 15:31 06/27/25 15:31 06/27/25 15:31 06/27/25 15:31
I&O
06/26/25 06/27/25 06/28/25
06:59 06:59 06:59
Intake Total 0 / 0
Balance 0 / 0
Review of Systems
-
Constitutional: Reports No Symptoms
EENT: Reports No Symptoms Reported
Respiratory: Reports No Symptoms
Cardiac: Reports No Symptoms
Abdomen/GI: Reports No Symptoms
Neuro: Reports No Symptoms
Physical Exam
-
General: Well Developed and No Apparent Distress
HEENT: Normocephalic
Cardiac: Regular Rhythm and S1/S2
GI: Soft, Nontender and Nondistended
Musculoskeletal: No Clubbing, No Cyanosis and No Edema
Skin: Warm
Neuro: Awake, Alert, Oriented, No Motor Deficits and No Sensory Deficits
Psych: Calm
Data Reviewed
-
Labs: Labs Reviewed by me, Discussed with Physician and Discussed with Patient
[2025-06-27] MEDS: LIPITOR 80 MG PO (18:09)
[2025-06-27] MEDS: SINEMET 25-100 2 TABLET PO (20:02)
[2025-06-27] MEDS: LYRICA 150 MG PO (20:59)
[2025-06-27] MEDS: KLONOPIN 1.5 MG PO (21:00)
[2025-06-27] MEDS: MAGNESIUM OXIDE 500 MG PO (21:00)
[2025-06-28] MEDS: SINEMET 25-100 1 TABLET PO (01:19)
[2025-06-28 03:31] VITALS: BP 100/66
[2025-06-28 07:30] VITALS: BP 106/74
--- NOTE | 2025-06-28 07:34 | W.PN.HOSP.TC ---
Addendum entered and electronically signed by Sampson Carlton MD 06/28/25 23:35:
Attending Addendum-
I saw and evaluated the patient. I reviewed the resident�s note and agree with findings and plan as documented in the resident�s note. Sub: rue weakness resolved. Denies neurological sxs. multiple questions about possible dissection in carotids.
Full 12 point ROS reviewed and negative except as documented Exam: Vitals reviewed in chart GEN-mod distress due to news heart RRR lungs clear abd soft LE no edema Neuro AAO x 3 MS 5/ sensation intact PEERLA
Plan:
# Recurrent right upper extremity weakness/paraesthesias
# MRI brain 06/09-MULTIPLE ACUTE ISCHEMIC INFARCTS in the cortical mckay matter of the superolateral LEFT FRONTAL LOBE, superior and posterior LEFT PARIETAL LOBE, and posterior LEFT OCCIPITAL LOBE.
- 06/08- carotid U/S-Right carotid: Small amount of noncalcified plaque within the proximal ICA. Any stenosis is less than 50% based upon velocity criteria.
Left carotid: Calcified and noncalcified plaque within the bulb and proximal ICA-Findings consistent with estimated stenosis of at least 50%, possibly greater than 70%.
- CT head shows no acute intracranial abnormality
- JERAD 06/12-EF 60-65% which did not show embolic source
- Neurology input appreciated- increase atorvastatin
- Continue aspirin, Plavix
- repeat CTA head/neck 06/27-No evidence for high-grade stenosis or occlusion in the lumbee of [place]ino[place]. Stable moderate stenosis of the left carotid bulb and mild stenosis of the right carotid bulb within the limitations of motion artifact
MRI- 06/27-No acute intracranial abnormality noted.Stable ventriculomegaly. Normal pressure hydrocephalus is within the differential, however there are no additional findings indicative of NPH. Mild/moderate chronic small vessel ischemic disease
- d/w vasc surg-subtle focal left internal carotid artery dissection (see series 502, images [id number]). On the current scan it appears that this area of dissection may be propagated and extends all the way up almost to the level of C1
- platelet function assays for plavix and asa
-transfer to [facility] for further eval
#Hyperlipidemia
- increase atorvastatin
#Parkinsonism?- Continue carbidopa levodopa
#Hydrocephalus at with [employer] shunt
#History of migraine
#Anemia/thalassemia
#Restless leg syndrome- Continue pregabalin
#Anxiety/depression- Continue clonazepam, PDMP reviewed
Full code
DVT prophylaxis�SCDs
Dispo tx to [facility]
Time spent coordinating care, transfer planning, review of plan of care with resident, transition of care, review of records, med rec, consults, notes, d/w consultants, nursing, family on phone, and CM� 39 mins >50% of this time was devoted to
counseling and coordination of care
Original Note:
Today's Communication/Plan
-
Pending bed availability for transfer to [facility]
Assessment / Plan
Assessment / Plan
Plan:
#Recurrent right upper extremity weakness/paraesthesias/TIA
-Repeat brain MRI (06/27/2025) showed No acute intracranial abnormality noted
- CTA done showed subtle focal left internal carotid artery dissection (06/08/2025) that now appears to be propagated and extends all the way up almost to the level of C1on repeat CTA ( 06/27/2025)
-Previous Vascular US (06/08/25)- Less than 50% stenosis of right carotid and Possible greater than 70% stenosis of left carotid artery
Neurology consult noted with thanks.
Vascular surgeon consult noted with thanks;
Patient should be evaluated a center with endovascular neurosurgical team or at least neurosurgical backup. Would recommend transfer to the [facility]
- Continue plavix and ASA
#Hyperlipidemia
- Continue Atorvastatin, increased to 80
#Essential hypertension
-Allow permissive hypertension
#Anemia/thalassemia
-Transferin pending
#Parkinsonism
-Continue carbidopa levodopa
#Hydrocephalus at with [employer] shunt
#History of migraine
-
#Restless leg syndrome- Continue pregabalin
#Anxiety/depression- Continue clonazepam, PDMP reviewed
Full code
DVT prophylaxis�SCDs
Anticipated Discharge: Within 24 hours
Subjective/Interval History
-
Date of Service: June 28, 2025
Patient seen.
She has new complains.
She wants a definitive treatment for the recurrent TIA
Objective Data
-
Labs:
Laboratory Results
06/28/25
06:00
WBC Pending
Hgb Pending
Hct Pending
Plt Count Pending
Sodium Pending
Potassium Pending
Chloride Pending
Carbon Dioxide Pending
BUN Pending
Creatinine Pending
Glucose Pending
Calcium Pending
Vital Signs:
Vital Signs
Temp Pulse Resp BP Pulse Ox
97.3 F 78 16 100/66 96
06/28/25 03:31 06/28/25 03:31 06/28/25 03:31 06/28/25 03:31 06/28/25 03:31
I&O
06/27/25 06/28/25 06/29/25
06:59 06:59 06:59
Intake Total 0 / 0 920 / 920
Balance 0 / 0 920 / 920
Review of Systems
-
Constitutional: Reports No Symptoms
EENT: Reports No Symptoms Reported
Respiratory: Reports No Symptoms
Cardiac: Reports No Symptoms
Abdomen/GI: Reports No Symptoms
Neuro: Reports No Symptoms
Physical Exam
-
General: Well Developed and No Apparent Distress
HEENT: Normocephalic
Cardiac: Regular Rhythm and S1/S2
GI: Soft, Nontender and Nondistended
Musculoskeletal: No Clubbing, No Cyanosis and No Edema
Skin: Warm
Neuro: Awake, Alert, Oriented, No Motor Deficits and No Sensory Deficits
Psych: Calm
Data Reviewed
-
Labs: Labs Reviewed by me, Discussed with Physician, Discussed with Patient and Discussed with Family
[2025-06-28 08:26] LABS: Blood Urea Nitrogen 19 mg/dl (7-17); Calcium 9.0 mg/dl (8.4-10.2); Carbon Dioxide 25 mmol/L (22-30); Chloride 109 mmol/L (98-107); Estimated Creatinine Clearance 58 ml/min; Glucose 117 mg/dl (70-99); Iron 133 ug/dl (37-170); Potassium 4.6 mmol/L (3.5-5.1); Sodium 140 mmol/L (135-145); eGFR > 60.00
[2025-06-28 08:34] LABS: Total Iron Binding Capacity 279 ug/dl (265-497)
[2025-06-28 08:39] LABS: Hematocrit 39.9 % (37.0-47.0); Hemoglobin 12.2 g/dL (12.0-16.0); Mean Corp Hgb Conc. 30.6 g/dL (33.0-37.0); Mean Corpuscular Volume 65.6 fL (81.0-99.0); Platelet Count 275 10^3/uL (130-400); Red Cell Dist. Width 17.8 % (11.5-14.5)
[2025-06-28 08:57] LABS: Ferritin 89.4 ng/ml (11.1-264.0)
--- NOTE | 2025-06-28 09:04 | W.PN.UPDATE ---
Update Note
Progress Note Update
I reviewed CT angiogram completed today. And I compared it to CT angiogram dated 06/08/2025. My concern is that on the prior scan from 06/08/2025 it appears that she has a subtle focal left internal carotid artery dissection (see series 502, images
[id number]). On the current scan it appears that this area of dissection may be propagated and extends all the way up almost to the level of C1. (See series 502 on the current scan, images 413 up to 339. Definitively dissection appearing around
image 378). Based on the extent of this potential dissection, and if recurrent symptoms she should be treated with stent likely, would recommend or defer to neurosurgical intervention due to the distal extent, tortuosity distally of the carotid
artery. This is not a focal cervical issue based on the extent it extends upwards. (Alternatively would be treated with dual antiplatelet or anticoagulation, but if recurrent symptoms she should be evaluated for an intervention). Therefore I
think she should be evaluated a center with endovascular neurosurgical team or at least neurosurgical backup. Would recommend transfer to the [facility]. I communicated this to the hospitalist and neurologist.
[2025-06-28] MEDS: VITAMIN D3 (cholecalciferol) 25 MCG PO (09:17)
[2025-06-28] MEDS: THERAGRAN 1 TABLET PO (09:17)
[2025-06-28] MEDS: OSCAL CAL 500 500 MG PO (09:17)
[2025-06-28] MEDS: PLAVIX 75 MG PO (09:17)
[2025-06-28] MEDS: LOW STRENGTH ASPIRIN 81 MG PO (09:17)
--- NOTE | 2025-06-28 10:23 | W.PN.NEURO.1 ---
Today's Communication / Plan
-
appreciate vascular consult given recurrent symptoms and known L ICA stenosis
transfer to [facility] to undergo probable stenting of C1 level dissection
check of P2Y12 assays indicate she is an aspirin and clopidogrel responder, continue aspirin and clopidogrel
allow permissive hypertension to ensure adequate brain perfusion, avoid systolic blood pressure less than 120
increased atorvastatin from 40 mg to 80 mg nightly
Neuro Assessment/Plan
Assessment
Patient is a 69-year-old female with past medical history of hypertension, hyperlipidemia, carotid stenosis, essential tremor, renal insufficiency, hydrocephaly with shunt presented to [facility] on 06/26/2025 with right upper arm numbness and
tingling questionable weakness similar to recent admission when she was diagnosed with ischemic strokes.
Head CT 06/26/2025: No acute intracranial abnormality. Unchanged prominence of the lateral and third ventricles, likely due to central atrophy versus communicating hydrocephalus.
Brain MRI 06/09/2025:
1. MULTIPLE ACUTE ISCHEMIC INFARCTS in the cortical mckay matter of the superolateral LEFT FRONTAL LOBE, superior and posterior LEFT PARIETAL LOBE, and posterior LEFT OCCIPITAL LOBE.
2. Moderate to severe distention of the bodies and occipital horns of the lateral ventricles and severe distention of the 3rd ventricle. Diagnostic possibilities are (1) ex vacuo dilatation secondary to moderate bilateral frontal and parietal lobe
volume loss, (2) cerebral aqueduct stenosis, or (3) normal pressure communicating hydrocephalus.
3. Mild to moderate white matter leukoaraiosis in the periventricular white matter.
4. Mild multilevel upper cervical spinal cord compression.
Head and neck CTA 06/08/2025:
Findings suggesting normal pressure hydrocephalus. Stable. Clinical correlation recommended
No acute vascular pathology.
Short segment of 50-69% proximal right common carotid artery stenosis.
Approximate 50% stenosis of the proximal left internal carotid artery
Multilevel degenerative disc disease.
Less than grade 1 anterolisthesis of C3 on C4
Carotid US 06/08/2025:
Right carotid: Small amount of noncalcified plaque within the proximal ICA. Any stenosis is less than 50% based upon velocity criteria.
Left carotid: Calcified and noncalcified plaque within the bulb and proximal ICA with elevated peak systolic velocity 220 cm/s. End-diastolic velocity of 83 cm/s. ICA/CCA ratio 4.17. Findings consistent with estimated stenosis of at least 50%,
possibly greater than 70%.
JERAD 06/12/2025:
Normal biventricular size and systolic function without regional wall motion
abnormality. Estimated LVEF 65-70%.
Mild/moderate aortic regurgitation.
No thrombus detected in the left atrial appendage.
Normal interatrial septum. No evidence of shunt by color flow Doppler. Negative
bubble study with and without simulated Valsalva.
TTE 06/09/2025:
1. Left ventricle: Normal size and function with an estimated ejection
fraction of 56%. No regional wall motion abnormalities. Normal diastolic
function.
2. Right ventricle: Normal
3. Atria: Normal
4. Mitral valve: No mitral stenosis or mitral regurgitation
5. Aortic valve: Sclerotic. No aortic insufficiency or aortic stenosis
6. Tricuspid valve: Not well-visualized. Probable normal estimated pulmonary
artery systolic pressures
7. No prior studies for comparison
Labs: Hgb A1C 5.5, LDL 107->82
Impression: abrupt onset of right sided sensory changes with concern for TIA/CVA most likely due to L ICA stenosis
There is the possibility as suggested by vascular surgery that the patient has a focal carotid dissection at the C1 level on the left which might be producing symptoms
Plan
Appreciate vascular consult given recurrent symptoms and known L ICA stenosis
Transfer to [facility] to undergo probable stenting of C1 level dissection
check of P2Y12 assays indicate she is an aspirin and clopidogrel responder, continue aspirin and clopidogrel
allow permissive hypertension to ensure adequate brain perfusion, avoid systolic blood pressure less than 120
increased atorvastatin from 40 mg to 80 mg nightly
Will follow as needed.
Subjective/Objective
Subjective Data
Date of Service: June 28, 2025
Objective Data
Vital Signs
Temp Pulse Resp BP Pulse Ox
36.5 C 82 18 106/74 96
06/28/25 07:30 06/28/25 07:30 06/28/25 07:30 06/28/25 07:30 06/28/25 07:30
Lab Results
06/28/25 07:37
06/28/25 07:37
PT 13.2 Sec (11.4-14.6) 06/26/25 10:52
INR 0.98 06/26/25 10:52
APTT 23.5 Sec (23.4-35.0) 06/26/25 10:52
Sodium 140 mmol/L (135-145) 06/28/25 07:37
Potassium 4.6 mmol/L (3.5-5.1) 06/28/25 07:37
BUN 19 mg/dl (7-17) H 06/28/25 07:37
Glucose 117 mg/dl (70-99) H 06/28/25 07:37
Calcium 9.0 mg/dl (8.4-10.2) 06/28/25 07:37
LDL Cholesterol, Calc 82 mg/dl 06/27/25 06:46
Patient Allergies
acetaminophen Allergy (Verified 06/26/25 18:35)
'upset stomach'
cefaclor (From Ceclor) Allergy (Verified 06/26/25 18:35)
Rash
metaxalone Allergy (Verified 06/26/25 18:35)
Unknown
ropinirole (From Requip) Allergy (Verified 06/26/25 10:47)
Rash
tramadol Allergy (Verified 06/26/25 10:47)
Rash
Data Reviewed
-
CT-A: Report Reviewed
Labs: Report Reviewed
Reviewed with: Physician
Old Records: Summarized
Past History
Past History
ED Past Medical History: HTN, Hypercholesterolemia and Other (COVID in January 2021; chronic insomnia, osteoarthritis, anemia, carotid artery dissection on the left)
ED Past Surgical History: Gynecological and Orthopedic (Chronic problems with her feet.)
Social History
Tobacco: Non-smoker
Alcohol: None
Drug: None
Personal:
Living: with family
Employment: Disabled
Family History
Family History: Other (Reviewed and noncontributory)
Medications
-
Medications:
Generic Name Dose Route Start Last Admin
Trade Name Freq PRN Reason Stop Dose Admin
Aspirin 81 mg 06/27/25 08:00 06/28/25 09:17
Aspirin 81 Mg Chewable Tablet PO 07/25/25 07:59 81 mg
DAILY MISTY Administration
Atorvastatin Calcium 80 mg 06/27/25 18:00 06/27/25 18:09
Atorvastatin (Lipitor) 80 Mg Tablet PO 07/25/25 17:59 80 mg
QPM MISTY Administration
Calcium Carbonate 500 mg 06/27/25 08:00 06/28/25 09:17
Calcium Carbonate 500 Mg Tablet PO 07/25/25 07:59 500 mg
DAILY MISTY Administration
Carbidopa/Levodopa 2 tablet 06/26/25 20:00 06/27/25 20:02
Carbidopa (25 Mg)/Levodopa (100 Mg) Regular Release Tablet PO 07/24/25 19:59 2 tablet
DAILY@2000 MISTY Administration
Carbidopa/Levodopa 1 tablet 06/27/25 03:00 06/28/25 01:19
Carbidopa (25 Mg)/Levodopa (100 Mg) Regular Release Tablet PO 07/25/25 02:59 1 tablet
DAILY@0300 MISTY Administration
Cholecalciferol 25 mcg 06/27/25 08:00 06/28/25 09:17
Cholecalciferol (Vitamin D3) 25 Mcg Tablet (1,000 Units) PO 07/25/25 07:59 25 mcg
DAILY MISTY Administration
Clonazepam 1.5 mg 06/26/25 21:00 06/27/25 21:00
Clonazepam 1 Mg Tablet PO 07/24/25 20:59 1.5 mg
DAILY@2100 MISTY Administration
Clopidogrel Bisulfate 75 mg 06/27/25 08:00 06/28/25 09:17
Clopidogrel 75 Mg Tablet PO 07/25/25 07:59 75 mg
DAILY MISTY Administration
Magnesium Oxide 500 mg 06/26/25 22:00 06/27/25 21:00
Magnesium Oxide 500 Mg Tablet PO 07/24/25 21:59 500 mg
HS MISTY Administration
Multivitamins Therapeutic 1 tablet 06/27/25 08:00 06/28/25 09:17
Multivitamin Tablet PO 07/25/25 07:59 1 tablet
DAILY MISTY Administration
Pregabalin 150 mg 06/26/25 21:00 06/27/25 20:59
Pregabalin 75 Mg Capsule PO 07/24/25 20:59 150 mg
DAILY@2100 MISTY Administration
Sodium Chloride 0 flush 06/26/25 21:00
Sodium Chloride 0.9% (Flush) Syringe IV 07/24/25 20:59
PER PROTOCOL MISTY
[2025-06-28 11:14] VITALS: BP 115/71
[2025-06-28 15:32] VITALS: BP 113/67
[2025-06-28] MEDS: LIPITOR 80 MG PO (17:38)
[2025-06-28] MEDS: SINEMET 25-100 2 TABLET PO (19:58)
[2025-06-28 20:00] VITALS: BP 118/88
--- NOTE | 2025-06-28 21:00 | PTCARENOTE ---
Pt transferred to [place] via ambulance. Pt took all belongings.
[2025-06-30 13:33] LABS: Transferrin 210 mg/dL (200-360)
== END 2025-06-28 21:13 | disposition short-term general hospital (02) | DRG 67 ==
LOC: 4 EAST ACU 12:54
PROVIDERS: Nurse Practitioner; ADMITTING PHYSICIAN Hospitalist; ATTENDING PHYSICIAN Family Medicine; CONSULT PHYSICIAN Psychiatry & Neurology Neurology; CONSULT PHYSICIAN Surgery Vascular Surgery; EMERGENCY PHYSICIAN Student in an Organized Health Care Education/Training Program; FAMILY PHYSICIAN Internal Medicine
DX: I65.22 Occlusion and stenosis of left carotid artery (principal); I77.71 Dissection of carotid artery; I12.9 Hypertensive chronic kidney disease with stage 1 through stage 4 chronic kidney disease, or unspecified chronic kidney disease; N18.9 Chronic kidney disease, unspecified; E78.00 Pure hypercholesterolemia, unspecified; G25.0 Essential tremor; M19.90 Unspecified osteoarthritis, unspecified site; F51.04 Psychophysiologic insomnia; G43.909 Migraine, unspecified, not intractable, without status migrainosus; D56.9 Thalassemia, unspecified; G25.81 Restless legs syndrome; F32.A Depression, unspecified; F41.9 Anxiety disorder, unspecified; M43.12 Spondylolisthesis, cervical region; G20.C Parkinsonism, unspecified; M81.0 Age-related osteoporosis without current pathological fracture; I35.1 Nonrheumatic aortic (valve) insufficiency; Z96.653 Presence of artificial knee joint, bilateral; Z98.42 Cataract extraction status, left eye; Z98.41 Cataract extraction status, right eye; Z88.6 Allergy status to analgesic agent; Z88.1 Allergy status to other antibiotic agents; Z88.5 Allergy status to narcotic agent; Z86.16 Personal history of COVID-19; Z79.82 Long term (current) use of aspirin; Z79.02 Long term (current) use of antithrombotics/antiplatelets; Q03.9 Congenital hydrocephalus, unspecified; Z86.73 Personal history of transient ischemic attack (TIA), and cerebral infarction without residual deficits
CPT/HCPCS: 70450; 70496; 70498; 70551; 80048; 80053; 80061; 82728; 83540; 83550; 84466; 84484; 85025; 85027; 85576; 85610; 85730; 93005; 99285; Q9967

== ENCOUNTER → 2025-10-11 10:32 | Outpatient (REF) | payer MEDICARE, SELFPAY | LOC: RAD 10:32 | PROVIDERS: ATTENDING PHYSICIAN Specialist; FAMILY PHYSICIAN Internal Medicine | DX: G45.9 Transient cerebral ischemic attack, unspecified (principal) | CPT/HCPCS: 93880 ==